=== PATIENT | female | born 1965 | race African-American/Black ===

== ENCOUNTER 2020-07-04 11:26 | Outpatient (REF) | payer OTHER, SELFPAY ==
--- NOTE | ~2020-07-04 | US_ITS ---
EXAMINATION: US RETROPERITONEAL LIMITED (RENAL ONLY) CLINICAL INFORMATION: Calculus of kidney. COMPARISON: Ultrasound abdomen complete 03/17/2018. TECHNIQUE: Real-time imaging of the kidneys. FINDINGS: RIGHT KIDNEY: 12.6 x 4.7 x 5.7 cm (SAG x AP x TRV). The kidney is normal in size, contour, and echogenicity. Renal cortical thickness is normal. No focal parenchymal lesions or hydronephrosis. There is an echogenic stone upper pole measuring 0.4 x 0.2 cm and a midpole stone measuring 0.2 x 0.1 cm. There is no caliectasis. LEFT KIDNEY: 12.5 x 5.3 x 4.6 cm (SAG x AP x TRV). The kidney is normal in size, contour, and echogenicity. Renal cortical thickness is normal. No calculi or focal parenchymal lesions. No hydronephrosis. US/US renal BI IMPRESSION: Nonobstructive echogenic stones upper and midpole right kidney.
== END 2020-07-04 11:27 | disposition home or self-care (01) ==
LOC: HO.US 11:26
PROVIDERS: Visit Provider Urology
DX: N20.0 Calculus of kidney (principal)
CPT/HCPCS: 76775

== ENCOUNTER 2020-07-26 13:24 | Emergency (ER) | payer OTHER, SELFPAY ==
--- NOTE | ~2020-07-26 | CT_ITS ---
EXAMINATION: CT ANGIOGRAM OF THE CHEST WITH AND WITHOUT CONTRAST (CT PULMONARY ANGIOGRAM FOR PE) CLINICAL INFORMATION: Reason for Exam elevated d-dimer. PE? COMPARISON: None TECHNIQUE: Prior to contrast administration, noncontrast localization images were obtained. Subsequently, multidetector volumetric imaging was performed from the thoracic inlet to below the diaphragms following the administration of 71 mL Omnipaque 350 intravenous contrast. No contrast reaction reported Sagittal, coronal, and MIP oblique sagittal reformatted images were obtained on the CT workstation, uploaded to PACS, and reviewed. This CT examination was performed using dose optimization techniques as appropriate, variously including the following: *Automated exposure control *Adjustment of mA and/or kV according to patient size (this includes techniques or standardized protocols for targeted exams where dose is matched to indication/reason for exam; i.e. extremities or head) *Use of iterative reconstruction technique Total exam dose-length product 334 mGy-cm FINDINGS: QUALITY OF STUDY/CONTRAST BOLUS: Satisfactory. PULMONARY ARTERIES: No central or segmental pulmonary emboli. THORACIC AORTA: No aneurysm or dissection. LUNG: No focal consolidation, nodules or masses. Bibasilar atelectasis/groundglass change is present. PLEURA: No pleural effusion or pneumothorax. MEDIASTINUM: Heart size upper limits normal.. No pericardial effusion. No hilar or mediastinal lymphadenopathy. No evidence of septal bowing or right heart strain. CHEST WALL/AXILLA: No axillary or internal mammary lymphadenopathy. OSSEOUS STRUCTURES: No acute or suspicious osseous abnormality. UPPER ABDOMEN: Hepatic steatosis is present. No reflux of contrast into the hepatic veins to suggest elevated right heart pressures. CT/CT angio chest PE protocol IMPRESSION: No evidence of pulmonary emboli. VTE: negative
--- NOTE | ~2020-07-26 | XR_ITS ---
EXAMINATION: XR CHEST CLINICAL INFORMATION: Cough COMPARISON: None TECHNIQUE: Frontal view of the chest was obtained. FINDINGS: Lungs are mildly hypoinflated and there is some minimal bibasilar atelectasis. Thoracolumbar scoliosis is present. No other significant abnormality is noted involving the heart, lungs, mediastinum, bony thorax or soft tissues. XR/XR chest 1V IMPRESSION: No acute intrathoracic disease
[2020-07-26 14:46] VITALS: BP 161/98; PULSE 88; RESP 20; TEMP 36.6; O2SAT 100; BMI 41.6
--- NOTE | 2020-07-26 14:55 | ED_ITS ---
HPI - General Adult General Chief complaint: Upper Respiratory Symptoms <BRISA Weinberg Last Filed: 07/26/20 18:24> Stated complaint: covid symptoms <BRISA Weinberg Last Filed: 07/26/20 18:24> Time Seen by Provider: 07/26/20 13:40 <BRISA Weinberg Last Filed: 07/26/20 18:24> Source: patient <BRISA Weinberg Last Filed: 07/26/20 18:24> Mode of arrival: ambulatory <BRISA Weinberg Last Filed: 07/26/20 18:24> Limitations: no limitations <BRISA Weinberg Last Filed: 07/26/20 18:24> History of Present Illness HPI narrative: Patient presents to ED for coughing, chest pain, body aches, and subjective fever since last night. Patient denies any swelling of the extremities, calf pain, or chest pain on inspiration. Symptoms started since yesterday <BRISA Weinberg Last Filed: 07/26/20 18:24> Related Data Allergies/adverse reactions: Allergies Allergy/AdvReac Type Severity Reaction Status Date / Time Unable to Assess Allergy Verified 07/26/20 13:40 <BRISA Weinberg Last Filed: 07/26/20 18:24> Review of Systems Review of Systems: Yes all other systems are reviewed and are negative <BRISA Weinberg Last Filed: 07/26/20 18:24> Constitutional: Constitutional: Reports as per HPI, Reports no additional constitutional complaints, Reports body ache(s), Reports fatigue and Reports fever(s) <BRISA Weinberg Last Filed: 07/26/20 18:24> Eyes: Eyes: Reports as per HPI and Reports no additional eye complaints <BRISA Weinberg Last Filed: 07/26/20 18:24> ENT: Reports system reviewed and no additional complaints, except as documented and Reports as per HPI <BRISA Weinberg Last Filed: 07/26/20 18:24> Cardiovascular: Cardiovascular: Reports as per HPI, Reports no additional cardiovascular complaints and Reports chest pain <BRISA Weinberg Last Filed: 07/26/20 18:24> Respiratory: Respiratory: Reports as per HPI, Reports no additional respirato ry complaints and Reports cough <BRISA Weinberg - Last Filed: 07/26/20 18:24> Gastrointestinal: Gastrointestinal: Reports as per HPI and Reports no additional gastrointestinal complaints <BRISA Weinberg - Last Filed: 07/26/20 18:24> Genitourinary: Genitourinary: Reports no additional female genitourinary complaints and Reports as per HPI <BRISA Weinberg - Last Filed: 07/26/20 18:24> Musculoskeletal: Musculoskeletal: Reports no additional musculoskeletal complaints and Reports as per HPI <BRISA Weinberg - Last Filed: 07/26/20 18:24> Neurologic: Reports system reviewed and no additional complaints, except as documented and Reports as per HPI <BRISA Weinberg - Last Filed: 07/26/20 18:24> Psychiatric: Psychiatric: Reports no additional psychiatric complaints and Reports as per HPI <BRISA Weinberg - Last Filed: 07/26/20 18:24> Endocrine: Endocrine: Reports fatigue <BRISA Weinberg - Last Filed: 07/26/20 18:24> FORMERLY [facility], [facility] Past Medical History Medical History: Medical History (Updated 07/26/20 @ 18:24 by BRISA Weinberg) Fibromyalgia HTN (hypertension) <BRISA Weinberg - Last Filed: 07/26/20 18:24> Social History Social History: Social History Advance Directives: No Advance Directives Information Provided: No <BRISA Weinberg - Last Filed: 07/26/20 18:24> Physical Exam Vital Signs: Vital Signs: Last Vital Signs Temp 98 F 07/26/20 14:46 Pulse 77 07/26/20 19:11 Resp 16 07/26/20 19:11 BP 157/92 H 07/26/20 19:11 Pulse Ox 98 07/26/20 19:11 Body Mass Index 41.6 <BRISA Weinberg - Last Filed: 07/26/20 18:24> Vital Signs: Last Vital Signs Temp 98 F 07/26/20 14:46 Pulse 77 07/26/20 19:11 Resp 16 07/26/20 19:11 BP 157/92 H 07/26/20 19:11 Pulse Ox 98 07/26/20 19:11 Body Mass Index 41.6 <Liliam Josue [facility] Last Filed: 07/26/20 20:54> Const: General: cooperative, healthy appearing, comfortable, no acute distress, well developed, alert and awake <BRISA Weinberg Last Filed: 07/26/20 18:24> Orientation/consciousness: patient oriented x3 <BRISA Weinberg Last Filed: 07/26/20 18:24> HENMT: Head: Yes normal to inspection, Yes No palpable skull fracture present, Yes normocephalic, Yes atraumatic and No abrasion <BRISA Weinberg Last Filed: 07/26/20 18:24> Eyes: General: appearance normal, both eyes and all related structures <BRISA Weinberg Last Filed: 07/26/20 18:24> Neck: Neck: Yes normal visual inspection, Yes full ROM, Yes no lymphadenopathy, Yes no meningeal signs, Yes trachea midline, Yes supple and No tender <BRISA Weinberg Last Filed: 07/26/20 18:24> Chest: Other: Positive for chest wall tenderness on palpation <BRISA Weinberg Last Filed: 07/26/20 18:24> Chest palpation & inspection: normal inspection of the chest <BRISA Weinberg Last Filed: 07/26/20 18:24> Resp: Effort & Inspection: normal respiratory effort and able to speak in comp lete sentences <BRISA Weinberg Last Filed: 07/26/20 18:24> Auscultation: clear to auscultation bilaterally <BRISA Weinberg Last Filed: 07/26/20 18:24> Cardio: Jugular venous distension: no JVD <BRISA Weinberg Last Filed: 07/26/20 18:24> Heart sounds: S1 normal heart sound present and S2 normal heart sound present <BRISA Weinberg Last Filed: 07/26/20 18:24> GI: Inspection: Yes normal to inspection and No abdominal wall ecchymosis <BRISA Weinberg Last Filed: 07/26/20 18:24> Palpation (GI): Soft to palpation, not firm, nontender, no guarding and not rigid <BRISA Weinberg Last Filed: 07/26/20 18:24> : General: No CVA tenderness and Yes no CVA tenderness <BRISA Weinberg Last Filed: 07/26/20 18:24> Back/Spine/Pelvis: Back: no CVA tenderness, No CVA tenderness and No back tenderness <BRISA Weinberg Last Filed: 07/26/20 18:24> Skin: General skin exam: no rashes or lesions noted and elasticity normal <BRISA Weinberg Last Filed: 07/26/20 18:24> Neuro: General: patient oriented x3, no meningeal signs and CN's II-XI intact bilaterally <BRISA Weinberg Last Filed: 07/26/20 18:24> Cranial nerves: Yes CN's II-XII intact bilaterally <BRISA Weinberg Last Filed: 07/26/20 18:24> Extrem: Other: Lower extremities negative for swelling, pitting edema, or calf pain <BRISA Weinberg Last Filed: 07/26/20 18:24> General: Yes normal to inspection and Yes full ROM <BRISA Weinberg Last Filed: 07/26/20 18:24> Psych: Appearance: grossly normal, well kempt and not disheveled <BRISA Weinberg Last Filed: 07/26/20 18:24> Course Course Course Narrative: Select patient have a viral syndrome with 2 COVID swab and cardiac evaluation. <BRISA Weinberg Last Filed: 07/26/20 18:24> -2052--CT angio chest PE protocol IMPRESSION: No evidence of pulmonary emboli. VTE: negative >> results discussed with patient including worrisome signs and symptoms and strict return precautions. She verbalized understanding feel safe for discharge home to follow-up with PCP <BRISA Gonzales Last Filed: 07/26/20 20:54> Reevaluation(s) Reevaluation #1: Patient's troponin negative. chest xray is normal. COvid swab is negative. lung clear to auscultation. D-dimer elevated and will send for Chest CTA. awating for EKG. Sign out to BRISA Ricketts to follow ekg and CTA of chest. <BRISA Weinberg - Last Filed: 07/26/20 18:24> Medical Decision Making Lab Data Result diagrams: : 07/26/20 16:02 07/26/20 16:02 <BRISA Weinberg - Last Filed: 07/26/20 18:24> Labs: Lab Results 07/26/20 07/26/20 07/26/20 Range/Units 16:02 16:02 16:02 WBC 5.2 (4.8-10.8) X10*3/uL RBC 4.23 (4.20-5.50) X10*6/uL Hgb 12.8 (12.0-16.0) g/dl Hct 39.0 (37-47) % MCV 92.2 (80-98) fL MCH 30.3 (27.0-33.0) pg MCHC 32.8 (31.0-35.0) g/dl RDW 12.6 (11.0-16.0) % Plt Count 365 (160-400) X10*3/uL MPV 10.0 (9.4-12.3) fL Immature Gran % (Auto) 0.2 (0.0-0.4) % Neut % (Auto) 39.2 L (45-73) % Lymph % (Auto) 49.4 H (20-40) % [place] % (Auto) 8.3 (2-11) % Eos % (Auto) 1.7 (0-4) % Baso % (Auto) 1.2 (0-2) % Lymph # (Auto) 2.6 (1.2-4.9) X10*3/uL [place] # (Auto) 0.4 (0.1-1.2) X10*3/uL Eos # (Auto) 0.1 (0.0-0.4) X10*3/uL Baso # (Auto) 0.1 (0.0-0.2) X10*3/uL Abs Immat Gran (auto) 0.01 (0.00-0.03) X10*3/uL Absolute Neuts (auto) 2.0 (2.0-8.3) X10*3/uL Absolute Nucleated RBC 0.000 (0.0-0.012) X10*3/uL Nucleated RBC % (auto) 0.0 (0.0-0.2) /100WBC PT 12.1 (10.8-13.0) SEC INR 1.0 (0.9-1.1) APTT 35.6 (24.1-38.0) SEC D-Dimer 231 NG/ML Sodium (135-145) mmol/L Potassium (3.3-5.1) mmol/L Chloride (96-108) mmol/L Carbon Dioxide (22-29) mmol/L Anion Gap (12-20) BUN (9-16) mg/dL Creatinine (0.5-1.4) mg/dL Estim Creat Clear Calc Estimated GFR Random Glucose (60-115) mg/dL Calcium (8.4-10.2) mg/dL Ferritin (10-250) ng/mL Total Bilirubin (0.0-1.0) mg/dL AST (5-31) U/L ALT (0-31) U/L Alkaline Phosphatase (39-117) U/L Lactate Dehydrogenase (122-220) U/L Troponin I High Sens (<3.5-17.0) ng/L B-Natriuretic Peptide (<100) pg/mL Total Protein (6.5-8.0) g/dL Albumin (3.5-5.0) g/dL Procalcitonin ng/mL Beta HCG, Quant mIU/mL Coronavirus (PCR) NEGATIVE (Negative) Influenza Type A (PCR) NEGATIVE (Negative) Influenza Type B (PCR) NEGATIVE (Negative) RSV RNA Qual (PCR) NEGATIVE (Negative) 07/26/20 07/26/20 07/26/20 Range/Units 16:02 16:02 16:02 WBC (4.8-10.8) X10*3/uL RBC (4.20-5.50) X10*6/uL Hgb (12.0-16.0) g/dl Hct (37-47) % MCV (80-98) fL MCH (27.0-33.0) pg MCHC (31.0-35.0) g/dl RDW (11.0-16.0) % Plt Count (160-400) X10*3/uL MPV (9.4-12.3) fL Immature Gran % (Auto) (0.0-0.4) % Neut % (Auto) (45-73) % Lymph % (Auto) (20-40) % [place] % (Auto) (2-11) % Eos % (Auto) (0-4) % Baso % (Auto) (0-2) % Lymph # (Auto) (1.2-4.9) X10*3/uL [place] # (Auto) (0.1-1.2) X10*3/uL Eos # (Auto) (0.0-0.4) X10*3/uL Baso # (Auto) (0.0-0.2) X10*3/uL Abs Immat Gran (auto) (0.00-0.03) X10*3/uL Absolute Neuts (auto) (2.0-8.3) X10*3/uL Absolute Nucleated RBC (0.0-0.012) X10*3/uL Nucleated RBC % (auto) (0.0-0.2) /100WBC PT (10.8-13.0) SEC INR (0.9-1.1) APTT (24.1-38.0) SEC D-Dimer NG/ML Sodium 137 (135-145) mmol/L Potassium 4.2 (3.3-5.1) mmol/L Chloride 100 (96-108) mmol/L Carbon Dioxide 28 (22-29) mmol/L Anion Gap 13 (12-20) BUN 12 (9-16) mg/dL Creatinine 0.80 (0.5-1.4) mg/dL Estim Creat Clear Calc 105.7 Estimated GFR > 60 Random Glucose 99 (60-115) mg/dL Calcium 9.9 (8.4-10.2) mg/dL Ferritin 76 (10-250) ng/mL Total Bilirubin 0.5 (0.0-1.0) mg/dL AST 25 (5-31) U/L ALT 25 (0-31) U/L Alkaline Phosphatase 73 (39-117) U/L Lactate Dehydrogenase 299 H (122-220) U/L Troponin I High Sens 4.2 (<3.5-17.0) ng/L B-Natriuretic Peptide 89 (<100) pg/mL Total Protein 7.9 (6.5-8.0) g/dL Albumin 4.3 (3.5-5.0) g/dL Procalcitonin ng/mL Beta HCG, Quant < 2 mIU/mL Coronavirus (PCR) (Negative) Influenza Type A (PCR) (Negative) Influenza Type B (PCR) (Negative) RSV RNA Qual (PCR) (Negative) 07/26/20 Range/Units 16:02 WBC (4.8-10.8) X10*3/uL RBC (4.20-5.50) X10*6/uL Hgb (12.0-16.0) g/dl Hct (37-47) % MCV (80-98) fL MCH (27.0-33.0) pg MCHC (31.0-35.0) g/dl RDW (11.0-16.0) % Plt Count (160-400) X10*3/uL MPV (9.4-12.3) fL Immature Gran % (Auto) (0.0-0.4) % Neut % (Auto) (45-73) % Lymph % (Auto) (20-40) % [place] % (Auto) (2-11) % Eos % (Auto) (0-4) % Baso % (Auto) (0-2) % Lymph # (Auto) (1.2-4.9) X10*3/uL [place] # (Auto) (0.1-1.2) X10*3/uL Eos # (Auto) (0.0-0.4) X10*3/uL Baso # (Auto) (0.0-0.2) X10*3/uL Abs Immat Gran (auto) (0.00-0.03) X10*3/uL Absolute Neuts (auto) (2.0-8.3) X10*3/uL Absolute Nucleated RBC (0.0-0.012) X10*3/uL Nucleated RBC % (auto) (0.0-0.2) /100WBC PT (10.8-13.0) SEC INR (0.9-1.1) APTT (24.1-38.0) SEC D-Dimer NG/ML Sodium (135-145) mmol/L Potassium (3.3-5.1) mmol/L Chloride (96-108) mmol/L Carbon Dioxide (22-29) mmol/L Anion Gap (12-20) BUN (9-16) mg/dL Creatinine (0.5-1.4) mg/dL Estim Creat Clear Calc Estimated GFR Random Glucose (60-115) mg/dL Calcium (8.4-10.2) mg/dL Ferritin (10-250) ng/mL Total Bilirubin (0.0-1.0) mg/dL AST (5-31) U/L ALT (0-31) U/L Alkaline Phosphatase (39-117) U/L Lactate Dehydrogenase (122-220) U/L Troponin I High Sens (<3.5-17.0) ng/L B-Natriuretic Peptide (<100) pg/mL Total Protein (6.5-8.0) g/dL Albumin (3.5-5.0) g/dL Procalcitonin 0.02 ng/mL Beta HCG, Quant mIU/mL Coronavirus (PCR) (Negative) Influenza Type A (PCR) (Negative) Influenza Type B (PCR) (Negative) RSV RNA Qual (PCR) (Negative) <BRISA Weinberg - Last Filed: 07/26/20 18:24> Lab Results 07/26/20 07/26/20 07/26/20 Range/Units 16:02 16:02 16:02 WBC 5.2 (4.8-10.8) X10*3/uL RBC 4.23 (4.20-5.50) X10*6/uL Hgb 12.8 (12.0-16.0) g/dl Hct 39.0 (37-47) % MCV 92.2 (80-98) fL MCH 30.3 (27.0-33.0) pg MCHC 32.8 (31.0-35.0) g/dl RDW 12.6 (11.0-16.0) % Plt Count 365 (160-400) X10*3/uL MPV 10.0 (9.4-12.3) fL Immature Gran % (Auto) 0.2 (0.0-0.4) % Neut % (Auto) 39.2 L (45-73) % Lymph % (Auto) 49.4 H (20-40) % [place] % (Auto) 8.3 (2-11) % Eos % (Auto) 1.7 (0-4) % Baso % (Auto) 1.2 (0-2) % Lymph # (Auto) 2.6 (1.2-4.9) X10*3/uL [place] # (Auto) 0.4 (0.1-1.2) X10*3/uL Eos # (Auto) 0.1 (0.0-0.4) X10*3/uL Baso # (Auto) 0.1 (0.0-0.2) X10*3/uL Abs Immat Gran (auto) 0.01 (0.00-0.03) X10*3/uL Absolute Neuts (auto) 2.0 (2.0-8.3) X10*3/uL Absolute Nucleated RBC 0.000 (0.0-0.012) X10*3/uL Nucleated RBC % (auto) 0.0 (0.0-0.2) /100WBC PT 12.1 (10.8-13.0) SEC INR 1.0 (0.9-1.1) APTT 35.6 (24.1-38.0) SEC D-Dimer 231 NG/ML Sodium (135-145) mmol/L Potassium (3.3-5.1) mmol/L Chloride (96-108) mmol/L Carbon Dioxide (22-29) mmol/L Anion Gap (12-20) BUN (9-16) mg/dL Creatinine (0.5-1.4) mg/dL Estim Creat Clear Calc Estimated GFR Random Glucose (60-115) mg/dL Calcium (8.4-10.2) mg/dL Ferritin (10-250) ng/mL Total Bilirubin (0.0-1.0) mg/dL AST (5-31) U/L ALT (0-31) U/L Alkaline Phosphatase (39-117) U/L Lactate Dehydrogenase (122-220) U/L Troponin I High Sens (<3.5-17.0) ng/L B-Natriuretic Peptide (<100) pg/mL Total Protein (6.5-8.0) g/dL Albumin (3.5-5.0) g/dL Procalcitonin ng/mL Beta HCG, Quant mIU/mL Coronavirus (PCR) NEGATIVE (Negative) Influenza Type A (PCR) NEGATIVE (Negative) Influenza Type B (PCR) NEGATIVE (Negative) RSV RNA Qual (PCR) NEGATIVE (Negative) 07/26/20 07/26/20 07/26/20 Range/Units 16:02 16:02 16:02 WBC (4.8-10.8) X10*3/uL RBC (4.20-5.50) X10*6/uL Hgb (12.0-16.0) g/dl Hct (37-47) % MCV (80-98) fL MCH (27.0-33.0) pg MCHC (31.0-35.0) g/dl RDW (11.0-16.0) % Plt Count (160-400) X10*3/uL MPV (9.4-12.3) fL Immature Gran % (Auto) (0.0-0.4) % Neut % (Auto) (45-73) % Lymph % (Auto) (20-40) % [place] % (Auto) (2-11) % Eos % (Auto) (0-4) % Baso % (Auto) (0-2) % Lymph # (Auto) (1.2-4.9) X10*3/uL [place] # (Auto) (0.1-1.2) X10*3/uL Eos # (Auto) (0.0-0.4) X10*3/uL Baso # (Auto) (0.0-0.2) X10*3/uL Abs Immat Gran (auto) (0.00-0.03) X10*3/uL Absolute Neuts (auto) (2.0-8.3) X10*3/uL Absolute Nucleated RBC (0.0-0.012) X10*3/uL Nucleated RBC % (auto) (0.0-0.2) /100WBC PT (10.8-13.0) SEC INR (0.9-1.1) APTT (24.1-38.0) SEC D-Dimer NG/ML Sodium 137 (135-145) mmol/L Potassium 4.2 (3.3-5.1) mmol/L Chloride 100 (96-108) mmol/L Carbon Dioxide 28 (22-29) mmol/L Anion Gap 13 (12-20) BUN 12 (9-16) mg/dL Creatinine 0.80 (0.5-1.4) mg/dL Estim Creat Clear Calc 105.7 Estimated GFR > 60 Random Glucose 99 (60-115) mg/dL Calcium 9.9 (8.4-10.2) mg/dL Ferritin 76 (10-250) ng/mL Total Bilirubin 0.5 (0.0-1.0) mg/dL AST 25 (5-31) U/L ALT 25 (0-31) U/L Alkaline Phosphatase 73 (39-117) U/L Lactate Dehydrogenase 299 H (122-220) U/L Troponin I High Sens 4.2 (<3.5-17.0) ng/L B-Natriuretic Peptide 89 (<100) pg/mL Total Protein 7.9 (6.5-8.0) g/dL Albumin 4.3 (3.5-5.0) g/dL Procalcitonin ng/mL Beta HCG, Quant < 2 mIU/mL Coronavirus (PCR) (Negative) Influenza Type A (PCR) (Negative) Influenza Type B (PCR) (Negative) RSV RNA Qual (PCR) (Negative) 07/26/20 Range/Units 16:02 WBC (4.8-10.8) X10*3/uL RBC (4.20-5.50) X10*6/uL Hgb (12.0-16.0) g/dl Hct (37-47) % MCV (80-98) fL MCH (27.0-33.0) pg MCHC (31.0-35.0) g/dl RDW (11.0-16.0) % Plt Count (160-400) X10*3/uL MPV (9.4-12.3) fL Immature Gran % (Auto) (0.0-0.4) % Neut % (Auto) (45-73) % Lymph % (Auto) (20-40) % [place] % (Auto) (2-11) % Eos % (Auto) (0-4) % Baso % (Auto) (0-2) % Lymph # (Auto) (1.2-4.9) X10*3/uL [place] # (Auto) (0.1-1.2) X10*3/uL Eos # (Auto) (0.0-0.4) X10*3/uL Baso # (Auto) (0.0-0.2) X10*3/uL Abs Immat Gran (auto) (0.00-0.03) X10*3/uL Absolute Neuts (auto) (2.0-8.3) X10*3/uL Absolute Nucleated RBC (0.0-0.012) X10*3/uL Nucleated RBC % (auto) (0.0-0.2) /100WBC PT (10.8-13.0) SEC INR (0.9-1.1) APTT (24.1-38.0) SEC D-Dimer NG/ML Sodium (135-145) mmol/L Potassium (3.3-5.1) mmol/L Chloride (96-108) mmol/L Carbon Dioxide (22-29) mmol/L Anion Gap (12-20) BUN (9-16) mg/dL Creatinine (0.5-1.4) mg/dL Estim Creat Clear Calc Estimated GFR Random Glucose (60-115) mg/dL Calcium (8.4-10.2) mg/dL Ferritin (10-250) ng/mL Total Bilirubin (0.0-1.0) mg/dL AST (5-31) U/L ALT (0-31) U/L Alkaline Phosphatase (39-117) U/L Lactate Dehydrogenase (122-220) U/L Troponin I High Sens (<3.5-17.0) ng/L B-Natriuretic Peptide (<100) pg/mL Total Protein (6.5-8.0) g/dL Albumin (3.5-5.0) g/dL Procalcitonin 0.02 ng/mL Beta HCG, Quant mIU/mL Coronavirus (PCR) (Negative) Influenza Type A (PCR) (Negative) Influenza Type B (PCR) (Negative) RSV RNA Qual (PCR) (Negative) <BRISA Gonzales - Last Filed: 07/26/20 20:54> Discharge Plan Discharge Clinical Impression: Acute viral syndrome <BRISA Weinberg - Last Filed: 07/26/20 18:24> Patient Disposition: Home, Self-Care <BRISA Weinberg - Last Filed: 07/26/20 18:24> Instructions: Viral Syndrome (ED) <BRISA Weinberg - Last Filed: 07/26/20 18:24> Additional Instructions: Your blood work and imaging studies were reassuring today in the emergency department It is important that he follow up with her primary care doctor Continue to take Tylenol Motrin at home for pain If her symptoms persist or worsen please return to the ED <BRISA Weinberg - Last Filed: 07/26/20 18:24> Referrals: Ami Castro MD [Primary Care Provider] - 2 days <BRISA Weinberg - Last Filed: 07/26/20 18:24>
[2020-07-26] MEDS: Ketorolac Tromethamine 30 MG/ML VIAL IVPUSH (16:07)
[2020-07-26 16:09] LABS: MANUAL DIFF FLAG NO
[2020-07-26 16:10] LABS: Basophils Absolute Auto 0.1 X10*3/uL (0.0-0.2); Basophils Percent Auto 1.2 % (0-2); Eosinophils Absolute Auto 0.1 X10*3/uL (0.0-0.4); Eosinophils Percent Auto 1.7 % (0-4); Hemoglobin 12.8 g/dl (12.0-16.0); Imm Gran Abs Auto 0.01 X10*3/uL (0.00-0.03); Imm Gran Pct Auto 0.2 % (0.0-0.4); Lymphocytes Absolute Auto 2.6 X10*3/uL (1.2-4.9); Lymphocytes Percent Auto 49.4 % (20-40); Mean Corpuscular HGB Conc 32.8 g/dl (31.0-35.0); Mean Corpuscular Hemoglobin 30.3 pg (27.0-33.0); Mean Corpuscular Volume 92.2 fL (80-98); Monocytes Absolute Auto 0.4 X10*3/uL (0.1-1.2); Monocytes Percent Auto 8.3 % (2-11); Neutrophils Percent Auto 39.2 % (45-73); Platelet Count 365 X10*3/uL (160-400); Red Blood Count 4.23 X10*6/uL (4.20-5.50); Red Cell Distribution Width 12.6 % (11.0-16.0); White Blood Count 5.2 X10*3/uL (4.8-10.8)
[2020-07-26] MEDS: 0.9 % Sodium Chloride 1,000 ML 999 ML IV (16:11)
[2020-07-26 16:17] LABS: Prothrombin Time 12.1 SEC (10.8-13.0)
[2020-07-26 16:19] LABS: Partial Thromboplastin Time 35.6 SEC (24.1-38.0)
--- NOTE | 2020-07-26 16:19 | PC.NURSE ---
IV placed and labs obtained. Pt medicated with Toradol and IVF.
[2020-07-26 16:35] LABS: Alanine Aminotransferase 25 U/L (0-31); Albumin Level 4.3 g/dL (3.5-5.0); Alkaline Phosphatase 73 U/L (39-117); Anion Gap 13 (12-20); Aspartate Amino Transferase 25 U/L (5-31); Bilirubin Total 0.5 mg/dL (0.0-1.0); Blood Urea Nitrogen 12 mg/dL (9-16); Calcium 9.9 mg/dL (8.4-10.2); Carbon Dioxide 28 mmol/L (22-29); Chloride 100 mmol/L (96-108); Creatinine Clr Calc Pharmacy 105.7; Estimated Glomerular Filt Rate > 60; Glucose Random 99 mg/dL (60-115); Potassium 4.2 mmol/L (3.3-5.1); Sodium 137 mmol/L (135-145); Total Protein 7.9 g/dL (6.5-8.0)
[2020-07-26 16:36] LABS: Lactate Dehydrogenase 299 U/L (122-220)
[2020-07-26 16:40] LABS: B Type Natriuretic Peptide 89 pg/mL (<100); Troponin-I High Sensitivity 4.2 ng/L (<3.5-17.0)
[2020-07-26 16:42] LABS: HCG Quantitative < 2 mIU/mL
[2020-07-26 16:55] LABS: Ferritin 76 ng/mL (10-250); Procalcitonin 0.02 ng/mL
[2020-07-26 16:59] LABS: D Dimer 231 NG/ML
[2020-07-26 17:29] LABS: Influenza A PCR NEGATIVE (Negative); Influenza B PCR NEGATIVE (Negative); Resp Syncy Virus RNA Qual PCR NEGATIVE (Negative); SARS COV2 PCR INHOUSE NEGATIVE (Negative)
--- NOTE | 2020-07-26 18:13 | ECG_ITS ---
Test Reason : DYSPNEA Blood Pressure : / mmHG Vent. Rate : 078 BPM Atrial Rate : 078 BPM P-R Int : 158 ms QRS Dur : 074 ms QT Int : 402 ms P-R-T Axes : 051 020 030 degrees QTc Int : 458 ms Sinus rhythm with occasional Premature ventricular complexes Cannot rule out Anterior infarct , age undetermined Abnormal ECG No previous ECGs available Referred By: Claudio Stanley Electronically Signed By:CHRISTA GUERRA MD
--- NOTE | 2020-07-26 19:10 | PC.NURSE ---
Report taken from Shayna, this RN resuming care. sonography technician at bedside obtaining EKG. VSS.
[2020-07-26 19:11] VITALS: BP 157/92; PULSE 77; RESP 16; O2SAT 98
--- NOTE | 2020-07-26 19:35 | PC.NURSE ---
Off to CT on hospital bed.
[2020-07-26] MEDS: iohexoL 350 MG/ML 100 ML INFUS..BTL IV (19:54)
[2020-07-26] MEDS: Acetaminophen 325 MG TABLET 650 MG PO (20:39)
--- NOTE | 2020-07-26 20:40 | PC.NURSE ---
Medicated per MAR with Tylenol.
[2020-07-26 20:55] VITALS: BP 172/100; PULSE 75; RESP 18; TEMP 36.6; O2SAT 95
[2020-07-26 21:20] VITALS: BP 170/90
== END 2020-07-26 21:22 | disposition home or self-care (01) ==
PROVIDERS: Emergency Medicine; Physician Assistant; Emergency Provider Emergency Medicine Emergency Medical Services; PCP Internal Medicine
DX: B34.9 Viral infection, unspecified (principal); Z20.822 Contact with and (suspected) exposure to COVID-19; R05 Cough
CPT/HCPCS: 0241U; 36415; 71045; 71275; 80053; 82728; 83615; 83880; 84145; 84484; 84702; 85025; 85379; 85610; 85730; 93005; 96361; 96374; 99284; J1885; Q9967

== ENCOUNTER 2022-04-02 10:12 | Outpatient (REF) | payer OTHER, SELFPAY ==
--- NOTE | ~2022-04-02 | XR_ITS ---
EXAMINATION: XR ANKLE, RIGHT CLINICAL INFORMATION: Pain. COMPARISON: None TECHNIQUE: AP, lateral, and mortise views of the right ankle. FINDINGS: Bony alignment and mineralization are normal. The right ankle mortise is intact. No fracture, dislocation or right ankle joint effusion is seen. There is a minimal accessory ossification center distal to the medial malleolus. Boehler's angle is normal. There is a moderately large posterior calcaneal spur. No focal soft tissue swelling, gas or foreign body is seen. XR/XR ankle RT min 3V IMPRESSION: 1. No right ankle fracture, dislocation or joint effusion is seen. 2. There is a moderately large posterior right calcaneal spur.
== END 2022-04-02 10:13 | disposition home or self-care (01) ==
LOC: HO.XRAY 10:12
PROVIDERS: PCP Internal Medicine; Visit Provider Internal Medicine Rheumatology
DX: M47.816 Spondylosis without myelopathy or radiculopathy, lumbar region (principal); M47.812 Spondylosis without myelopathy or radiculopathy, cervical region; M17.0 Bilateral primary osteoarthritis of knee; M79.7 Fibromyalgia; M25.571 Pain in right ankle and joints of right foot; M76.61 Achilles tendinitis, right leg; M19.90 Unspecified osteoarthritis, unspecified site; Z79.899 Other long term (current) drug therapy
CPT/HCPCS: 73610; 99212

== ENCOUNTER 2022-11-06 11:37 | Outpatient (AMB) | payer OTHER, SELFPAY ==
--- NOTE | 2022-11-06 11:41 | MHC.OFFVIS ---
Intake Vital Signs 11/06/22 11:43 Height 5 ft 6 in Weight 194 lb 3.636 oz BMI 31.3 BP 124/84 Blood Pressure Location Rt brachial Position Sitting Pulse 81 Pulse Source Pulse Oximeter Temp 97.7 F Temp Source Skin Pulse Oximetry (%) 98 Intake Visit Reasons: Fibromyalgia Intake Note: Here for fibromyalgia. Would like new referral for PT. Would like external orders to [facility] in [place]. ([facility]?) Bottom Sprayer Required: Yes Bottom Sprayer Language: Bariatric Program Coordinator Name: Laquita [email or web address] Information Interpreted: clinical only Accompanied by: Self / Same As Patient Allergies gabapentin Allergy (Intermediate, Verified 11/06/22 11:43) Swelling HPI HPI Comments History of Present Illness Details The patient returns for evaluation of her fibromyalgia and osteoarthritis. She was last seen in March. I tried to refer her for physical therapy for her Achilles tendinitis. She was unable to find transportation and now the order has . She now thinks she can make it to the [facility] Physical therapy site on [facility] in [place]. The pain is still in the Achilles more on the right than the left. She also complains of some knee pain particularly with getting up from stairs. Other muscle aches and pains remain about the same. She ran out of the cyclobenzaprine and could not get a refill. She was taking 10 to 20 mg nightly and that did improve her sleep. She remains on duloxetine 90 mg daily. She also had available to her some diclofenac gel that was helpful for her knee pain but did not seem to help much the Achilles pain. [facility] Medical History (Updated 04/02/22 @ 10:42 by Roger Peres MD) ADHD Anxiety DDD (degenerative disc disease), cervical Diabetes Esophageal dysmotility Fibromyalgia Gastritis HTN (hypertension) Hypercholesteremia Migraine Obesity Spondylosis Vertigo Vitamin D deficiency Surgical History H/O bariatric surgery Family History Mother Arthritis Father Arthritis Diabetes Social History (Updated 11/06/22 @ 11:50 by TROY Currie) Alcohol intake: former Patient Tobacco Use Status: Former Tobacco user Review of Systems Const Details: Low energy. Negative for appetite change, weight change, fever, chills, malaise Card Details: Negative chest pain, edema and syncope Resp Details: Negative for SOB, cough and wheezing GI Details: Negative indigestion/heartburn, nausea, abdominal pain, bowel changes, diarrhea, constipation and bloody stool. Psych Details: Negative for anxiety, depression and stress Magnus/Lymph Details: Negative for excessive bruising or bleeding. Physical Exam Vital Signs: Last Vital Signs Temp 97.7 F 11/06/22 11:43 Pulse 81 11/06/22 11:43 BP 124/84 11/06/22 11:43 Pulse Ox 98 11/06/22 11:43 BMI result Body Mass Index 31.3 APPEARANCE: Patient in no acute distress EYES no redness, pupils equal and reactive to light, eyelids normal. No temporal artery tenderness, redness or swelling. EXTREMITIES: No edema, no calf tenderness, normal peripheral pulses. JOINT EXAM: Cervical Spine:.? Mild pain with extremes of normal range of motion.? Mild cervical muscle tenderness. Thoracic Spine:.? No scoliosis.? No tenderness on palpation. Lumbar Spine:.? Alignment normal.? Lumbar pain with flexion at 45 degrees with some paraspinal muscle tenderness. Chest Wall:.? No tenderness, swelling, increased warmth or erythema. Hands:.? Normal pain-free range of motion without tenderness, swelling, increased warmth or erythema. Able to make a full fist and has a good shrink pit supervisor strength. Wrists:.? Normal pain-free range of motion with slight dorsal tenderness but no swelling, increased warmth or erythema. Elbows:. Normal pain-free range of motion without tenderness, swelling, increased warmth or erythema. Shoulders:.?? Full range of motion with pain at the extremes of range of motion.? Most of this is in the trapezial and axillary regions.? There is slight anterior tenderness without abductor weakness or adenopathy. Hips:? Full range of motion with lumbar pains at the extremes of range of motion, more painful with range of motion in the right hip.? No groin pain with motion. Hip bursa:? No tenderness. Knees: Normal pain-free range of motion with mild patellofemoral crepitus.? There is slight medial compartment tenderness without effusion, soft tissue swelling, increased warmth or erythema.? Ankles:? Right:? There is pain over the Achilles with extremes of normal flexion extension.? There is mild tenderness along the Achilles tendon without redness or swelling.? Inversion and eversion the ankle is normal without any tenderness over the joint margins.? Left:? Normal pain-free range of motion with slight tenderness. No swelling, increased warmth or erythema. Feet:.? Normal pain-free range of motion without tenderness, swelling, increased warmth or erythema. Tender points:? Mild tenderness to digital palpation at the occiput, trapezius, second rib, lateral epicondyle, knees, greater trochanter and gluteal area bilaterally. ? Results Reviewed Results Reviewed: XRay Report Signed Patient: Tia Ivy [id number] : 1965 Acct:[id number] Age/Sex: 56 / F ADM Date: 04/02/[address]: Roger Peres MD Ordering Physician: Roger Peres MD Date of Service: 04/02/22 Procedure(s): XR ankle RT min 3V Accession Number(s): [id number] cc: Roger Peres MD~ EXAMINATION: XR ANKLE, RIGHT CLINICAL INFORMATION: Pain.? COMPARISON: None? TECHNIQUE: AP, lateral, and mortise views of the right ankle. FINDINGS: Bony alignment and mineralization are normal. The right ankle mortise is intact. No fracture, dislocation or right ankle joint effusion is seen. There is a minimal accessory ossification center distal to the medial malleolus. Boehler's angle is normal. There is a moderately large posterior calcaneal spur. No focal soft tissue swelling, gas or foreign body is seen.? XR/XR ankle RT min 3V IMPRESSION: ? 1. No right ankle fracture, dislocation or joint effusion is seen. ? 2. There is a moderately large posterior right calcaneal spur. Dictated By: Will Sawyer MD Assessment & Plan Assessment & Plan (1) Achilles tendinitis, right leg: Code(s): M76.61 - Achilles tendinitis, right leg (2) Osteoarthritis of knees, bilateral: Code(s): M17.0 - Bilateral primary osteoarthritis of knee (3) Fibromyalgia: Code(s): M79.7 - Fibromyalgia Plan The overall pains of fibromyalgia are about the same. She still is more bothered by this right Achilles pain. Now the left is slightly tender as well. I do not really see any signs of active inflammatory disease. I will try again to refer her to the [facility] location for physical therapy. I will also add for some exercises for osteoarthritis in the knees. I think she mostly has patellofemoral OA. She was given the refill for the cyclobenzaprine 10 mg to take 1 or 2 at night. She never takes it during the day because it makes her too sleepy. A follow-up in 6 months would be reasonable. Orders: Orders PT Evaluation and Treatment Today M17.0 - Bilateral primary osteoarthritis of knee, M76.61 - Achilles tendinitis, right leg Medications: Changed From cyclobenzaprine 10 mg PO TID To cyclobenzaprine 10 - 20 mg (1 - 2 x 10 mg) PO BEDTIME PRN 60 tabs 3RF muscle spasm Refilled diclofenac sodium 1% 2 grams topical BID 100 grams 4RF M17.0 - Bilateral primary osteoarthritis of knee, M76.61 - Achilles tendinitis, right leg Coding Level of Care Code Est Pt Level 3 (85344) Diagnoses Achilles tendinitis, right leg M76.61 Osteoarthritis of knees, bilateral M17.0 Fibromyalgia M79.7
[2022-11-06 11:43] VITALS: BP 124/84; PULSE 81; TEMP 36.5; O2SAT 98; BMI 31.3
== END 2022-11-06 14:45 | disposition home or self-care (01) ==
PROVIDERS: PCP Internal Medicine; Visit Provider Internal Medicine Rheumatology
DX: M76.61 Achilles tendinitis, right leg (principal); M17.0 Bilateral primary osteoarthritis of knee; M79.7 Fibromyalgia
CPT/HCPCS: 99213

== ENCOUNTER → 2022-11-06 11:37 | Outpatient (BNVA) | payer OTHER, SELFPAY | PROVIDERS: PCP Internal Medicine; Visit Provider Internal Medicine Rheumatology | DX: M17.0 Bilateral primary osteoarthritis of knee (principal); M79.7 Fibromyalgia; M76.61 Achilles tendinitis, right leg | CPT/HCPCS: 99212 ==

== ENCOUNTER 2023-06-24 09:26 | Outpatient (AMB) | payer OTHER, SELFPAY ==
--- NOTE | 2023-06-24 09:34 | MHC.OFFVIS ---
Intake Vital Signs 06/24/23 09:42 Height 5 ft 6 in Weight 200 lb 6.403 oz BMI 32.3 BP 110/70 Blood Pressure Location Rt brachial Position Sitting Pulse 82 Pulse Source Pulse Oximeter Pulse Oximetry (%) 100 Oxygen Delivery Method Room Air Intake Visit Reasons: oa Intake Note: Patient last seen 11/06/[address] Peres, presents today for follow up.\ Reports not taking Duloxetine. Needs new psychiatrist. Fire Management Officer Required: Yes Fire Management Officer Language: Instrument Technician Apprentice Name: Margarita [id number] Information Interpreted: clinical only Accompanied by: Self / Same As Patient Allergies gabapentin Allergy (Intermediate, Verified 06/24/23 09:35) Swelling HPI HPI Comments History of Present Illness Details Ms. Weber 57 yoF returns for follow-up of her fibromyalgia and osteoarthritis. She was last seen in October 2022. She was not able to go to physical therapy for her Achilles tendinitis. She was unable to find transportation. The pain is still in the Achilles more on the right than the left. She also complains of some knee pain particularly with stairs. Other muscle aches and pains remain about the same. She is not taking duloxetine 90 mg daily. She also uses diclofenac gel which she finds helpful for her knee pain but does not help with the Achilles pain. Today she reports frequent headaches and tenderness to the side of her head where there is a lump which has been there for a very long time but recently has starting to feel tender when she has a headache. She denies visual changes and jaw claudication. 04/02/[address] Peres: The patient is seen for evaluation of her fibromyalgia and osteoarthritis. I had last seen her back in September of 2020 at [place]. She says overall the joint pains continue most prominent in the lower back, neck and shoulders. She also has knee pain with walking and more recently has developed some pain in the right Achilles region. No injury in that area was noted. She has not seen any swelling or redness. She is no longer taking any NSAIDs, they seem to cause GI upset, even Celebrex given in conjunction with pantoprazole. She does take acetaminophen 2 or 3 g a day with some benefit. She remains on Cymbalta, nighttime trazodone, and occasional cyclobenzaprine. [facility] Medical History (Updated 04/10/24 @ 09:56 by Zoila Hernandez, [facility]) Lump of scalp Frequent headaches Gastritis Vertigo Vitamin D deficiency Hypercholesteremia DDD (degenerative disc disease), cervical Obesity Spondylosis Esophageal dysmotility Anxiety ADHD Migraine Diabetes Fibromyalgia HTN (hypertension) Surgical History H/O bariatric surgery Family History Mother Arthritis Father Arthritis Diabetes Social History Alcohol intake: former Patient Tobacco Use Status: Former Tobacco user Review of Systems Const All systems reviewed & are unremarkable except as noted in HPI and below Physical Exam Vital Signs: Last Vital Signs Pulse 82 06/24/23 09:42 BP 110/70 06/24/23 09:42 Pulse Ox 100 06/24/23 09:42 Oxygen Delivery Method Room Air 06/24/23 09:42 BMI result Body Mass Index 32.3 APPEARANCE: Patient in no acute distress EYES no redness, pupils equal and reactive to light, eyelids normal. No temporal artery tenderness, redness or swelling. HEART:? Regular rhythm, S1-S2 heard, no murmurs, rubs or gallops. LUNG:? Clear to percussion and auscultation SKIN: Lump to Posterior left side of cranial, approximately 1 in diameter, mild tender but no redness erythema or increased warmth. There is no oozing or opening. EXTREMITIES: No edema, no calf tenderness, normal peripheral pulses. JOINT EXAM: Cervical Spine:.? Mild pain with extremes of normal range of motion.? Mild cervical muscle tenderness. Thoracic Spine:.? No scoliosis.? No tenderness on palpation. Lumbar Spine:.? Alignment normal.? Lumbar pain with flexion at 45 degrees with some paraspinal muscle tenderness. Chest Wall:.? No tenderness, swelling, increased warmth or erythema. Hands:.? Normal pain-free range of motion without tenderness, swelling, increased warmth or erythema. Able to make a full fist and has a good septic cleaner strength. Wrists:.? Normal pain-free range of motion with slight dorsal tenderness but no swelling, increased warmth or erythema. Elbows:. Normal pain-free range of motion without tenderness, swelling, increased warmth or erythema. Shoulders:.?? Full range of motion with pain at the extremes of range of motion.? Most of this is in the trapezial and axillary regions.? There is anterior tenderness without abductor weakness or adenopathy. Hips:? Full range of motion with lumbar pains at the extremes of range of motion, more painful with range of motion in the right hip.? No groin pain with motion. Hip bursa:? No tenderness. Knees: Normal pain-free range of motion with mild patellofemoral crepitus.? There is mild medial compartment tenderness without effusion, soft tissue swelling, increased warmth or erythema.? Ankles:? Right:? There is pain over the Achilles with extremes of normal flexion extension.? There is tenderness along the Achilles tendon without redness or swelling.? Inversion and eversion the ankle is normal without any tenderness over the joint margins.? Left:? Normal pain-free range of motion with slight tenderness. No swelling, increased warmth or erythema. Feet:.? Normal pain-free range of motion without tenderness, swelling, increased warmth or erythema. Tender points:? Mild tenderness to digital palpation at the occiput, trapezius, second rib, lateral epicondyle, knees, greater trochanter and gluteal area bilaterally. ? Assessment & Plan Assessment & Plan (1) Achilles tendinitis, right leg: Code(s): M76.61 - Achilles tendinitis, right leg (2) Osteoarthritis of knees, bilateral: Code(s): M17.0 - Bilateral primary osteoarthritis of knee Qualifiers: Osteoarthritis type: primary Qualified Code(s): M17.0 - Bilateral primary osteoarthritis of knee (3) Fibromyalgia: Code(s): M79.7 - Fibromyalgia (4) Lump of scalp: Code(s): R22.0 - Localized swelling, mass and lump, head (5) Frequent headaches: Code(s): R51.9 - Headache, unspecified Plan #FM:The overall pains of fibromyalgia are about the same. She was given the refill for the cyclobenzaprine 10 mg to take 1 or 2 at night. She never takes it during the day because it makes her too sleepy. I was going to prescribed gabapentin but she has it recorded as an allergy causing swelling. She had stopped taking the Cymbalta and is not sure why. She wants to try the Celebrex again so I will send the prescription. She knows to take with food and PPI. #Achilles Pain: She still is more bothered by this right Achilles pain. Now the left is slightly tender as well. Xray shows a large Heel spur and may be causing the pain. I will send her to Podiatry for further evaluation. #Scalp lump and frequent headaches: Referral placed to Neurology. A follow-up in 6 months would be reasonable. I spent 40 minutes reviewing history, evaluating patient and documenting Orders: Referrals Neurology Referral R22.0 - Localized swelling, mass and lump, head, R51.9 - Headache, unspecified Podiatry Referral M25.571 - Pain in right ankle and joints of right foot, M76.61 - Achilles tendinitis, right leg Medications: New celecoxib (Celebrex) Take with Food 200 mg PO DAILY 90 caps 0RF M25.571 - Pain in right ankle and joints of right foot, M76.61 - Achilles tendinitis, right leg Coding Level of Care Code Est Pt Level 4 (73040) Diagnoses Achilles tendinitis, right leg M76.61 Primary osteoarthritis of both knees M17.0 Osteoarthritis type: primary Fibromyalgia M79.7 Lump of scalp R22.0 Frequent headaches R51.9
[2023-06-24 09:42] VITALS: BP 110/70; PULSE 82; O2SAT 100; BMI 32.3
== END 2023-06-24 10:14 | disposition home or self-care (01) ==
PROVIDERS: PCP Internal Medicine; Visit Provider Nurse Practitioner Family
DX: M76.61 Achilles tendinitis, right leg (principal); M17.0 Bilateral primary osteoarthritis of knee; M79.7 Fibromyalgia; R22.0 Localized swelling, mass and lump, head; R51.9 Headache, unspecified
CPT/HCPCS: 99214

== ENCOUNTER → 2023-06-24 09:26 | Outpatient (BNVA) | payer OTHER, SELFPAY | PROVIDERS: PCP Internal Medicine; Visit Provider Nurse Practitioner Family | DX: M76.61 Achilles tendinitis, right leg (principal); M17.0 Bilateral primary osteoarthritis of knee; M79.7 Fibromyalgia; R22.0 Localized swelling, mass and lump, head; R51.9 Headache, unspecified | CPT/HCPCS: 99212 ==

== ENCOUNTER 2024-02-18 10:15 | Outpatient (AMB) | payer OTHER, SELFPAY ==
--- NOTE | 2024-02-18 10:17 | A.OFFVIS_ITS ---
Vital Signs 02/18/24 10:18 Height 5 ft 6 in Weight 199 lb 11.821 oz BMI 32.2 BP 106/68 Blood Pressure Location Lt brachial Position Sitting Pulse 68 Pulse Source Pulse Oximeter Intake Visit Reasons: FM/Achilles Heel Pain Left Intake Note: Patient present today for Achilles Heel pain, Left. Last seen by Zoila Hernandez on 06/24/23. Account Strategist Required: Yes Account Strategist Language: Curriculum And Assessment Director Services: Account Strategist Present Account Strategist Name: Vasu [id number] Information Interpreted: non-clinical & clinical Accompanied by: Self / Same As Patient Allergies gabapentin Allergy (Intermediate, Verified 02/18/24 10:20) Swelling celecoxib [From Celebrex] Adverse Reaction (Mild, Verified 02/18/24 11:05) Swelling Medication List - Last Reconciled 02/18/24 by Nohemi Ann MD amlodipine 5 mg PO DAILY atorvastatin 40 mg PO DAILY blood sugar diagnostic (FreeStyle Lite Strips) As directed cetirizine (All Day Allergy (cetirizine)) 10 mg PO DAILY PRN cholecalciferol (vitamin D3) 50 mcg PO DAILY cyclobenzaprine TAKT 1-2 TABLETS BY MOUTH AT BEDTIME NEEDED FOR A MUSCLE SPASM diclofenac sodium 1% 2 grams topical BID duloxetine 30 mg PO DAILY duloxetine 60 mg PO DAILY famotidine 20 mg PO BID fluticasone propionate 50 mcg/actuation (Allergy Relief (fluticasone)) 1 spray intranasal DAILY hydrochlorothiazide 25 mg PO DAILY hydroxyzine pamoate 25 mg PO BID PRN lancets (FreeStyle Lancets) As directed meclizine 12.5 mg PO BID pantoprazole 40 mg PO DAILY topiramate 25 mg PO BID trazodone 200 mg PO BEDTIME HPI Comments Details: Patient is a 58 y.o. female with HTN, DM, HLD who is here for follow up of fibromyalgia and polyarticular OA Interval History: Last seen 06/24/2023 with Zoila Hernandez. At that time fibromyalgia was stable. Saw the wraparound facilitator for her heel spur and Achilles tendon pain. States that they did not offer any management options Has appt with neurology 02/25/2024 to follow up headaches Today patient has multiple complaints: - Bilateral hand numbness, worse at night but present throughout the day. Gets shock like sensation through her hands. She also feels like she has poor supplier specialist strength and drops things - Feels like she gets random bruises on her thighs and legs. No history of clots. No history of gum bleeding Rheumatologic History: Fibromyalgia - Previously tried gabapentin: states that she gets swelling from this - Celebrex: stopped because it cause swelling also Current Rheumatology Medication(s): Duloxetine 90mg daily Cyclobenzaprine 10mg daily PFS Medical History (Updated 02/18/24 @ 10:35 by Nohemi Ann MD) Bilateral hand numbness Lump of scalp Frequent headaches Gastritis Vertigo Vitamin D deficiency Hypercholesteremia DDD (degenerative disc disease), cervical Obesity Spondylosis Esophageal dysmotility Anxiety ADHD Migraine Diabetes Fibromyalgia HTN (hypertension) Surgical History H/O bariatric surgery Family History Mother Arthritis Father Arthritis Diabetes Social History Alcohol intake: former Patient Tobacco Use Status: Former Tobacco user Review of Systems Const Details: Review of Systems Constitutional: Denies fever, chills, weight loss ENT: Denies vision changes, eye pain or eye redness, dental caries, dry mouth GI: Denies nausea, vomiting, diarrhea, abdominal pain, change in BM Pulm: Denies SOB, MCNEAL, hemoptysis, wheezing Cards: Denies chest pain, palpitations Skin: Denies Raynaud's, rash, nail changes, photosensitivity, BROODMARE FOREMAN: Denies headaches, weakness, recurrent falls MSK: as per HPI All other systems reviewed and are unremarkable except noted above Physical Exam Vital Signs: Last Vital Signs Pulse 68 02/18/24 10:18 BP 106/68 02/18/24 10:18 BMI result Body Mass Index 32.2 Physical Examination CONSTITUITIONAL Patient alert and cooperative. Well appearing and in no apparent painful distress HEENT Conjunctiva and sclera clear. ?Pupils equal round and reactive to light. ?No lymphadenopathy. CHEST/RESPIRATORY SYSTEM Normal respiratory effort and able to speak in complete sentences. ?Clear to auscultation bilaterally. ?No crackles, rales, rhonchi, wheezes heard. CARDIAC SYSTEM Regular rate and rhythm. ?S1 and S2 heard no murmurs. ?Radial pulses intact bilaterally MSK Hands: ?Good supplier specialist strength bilaterally. No deformities. ?No synovitis noted to the MCPs, PIPs or DIPs. ?No tenderness to palpation of these joints. Wrists: ?Full range of motion at the wrists without pain. ?No tenderness to palpation or synovitis noted to the wrists. Positive Phalen's test bilaterally Elbows: Full range of motion without pain. No tenderness, weakness, swelling, increased warmth or erythema. Shoulders: Full range of motion without pain. No tenderness, weakness, swelling, increased warmth or erythema. Hips: Full range of motion without pain. Knees: ?Full range of motion. ?No tenderness, swelling, increased warmth or erythema.?No effusion or crepitations Ankles: Full range of motion. ?Tenderness to palpation of the achilles tendon Feet: ?Negative squeeze test. ?No tenderness to palpation or swelling of the MTPs. SKIN Skin intact without rashes. Results Reviewed Results Reviewed: Laboratory Tests 07/26/20 16:02 WBC 5.2 RBC 4.23 Hgb 12.8 Hct 39.0 Plt Count 365 Sodium 137 Potassium 4.2 Chloride 100 Carbon Dioxide 28 BUN 12 Creatinine 0.80 Assessment & Plan Assessment & Plan (1) Bilateral hand numbness: Code(s): R20.0 - Anesthesia of skin Category: Medical Plan: #Bilateral Hand Numbness History and exam is consistent with bilateral CTS Discussed therapeutic options: 1. Bilateral splinting + Pregabalin, 2. Corticosteroid injection, 3. Surgery Plan - EMG to confirm diagnosis - Printed splint for patient to purchase OTC - Pregabalin 75mg nightly - RTC 6 months. if no improvement will schedule steroid injection (2) Fibromyalgia: Code(s): M79.7 - Fibromyalgia Category: Medical Plan: #Fibromyalgia Unchanged Not currently engaging in stretching or structured exercise Plan - Continue cyclobenzaprine 5-10mg nightly - Continue duloxetine 90mg daily - Encourage stretching and structured exercise (3) History of bruising easily: Code(s): Z87.898 - Personal history of other specified conditions Plan: #Easy bruising No bruises seen on exam Plan - Check CBC - Refer back to PCP for formal evaluation Plan I spent 25 minutes reviewing the record and labs, seeing the patient, discussing the treatment plan and documenting in the medical record Orders: Orders Complete Blood Count Auto Diff Today Z87.898 - Personal history of other specified conditions NE electromyogram (EMG) Today R20.0 - Anesthesia of skin Medications: New pregabalin 75 mg PO BEDTIME 90 days 90 caps 1RF M79.7 - Fibromyalgia, R20.0 - Anesthesia of skin Coding Level of Care Code Est Pt Level 3 (73196) Diagnoses Bilateral hand numbness R20.0 Fibromyalgia M79.7 History of bruising easily Z87.890
[2024-02-18 10:18] VITALS: BP 106/68; PULSE 68; BMI 32.2
--- OUTSIDE RECORDS SUMMARY | 2024-02-24 01:32 | XMS_ITS | Patient Health Record ---
Author Organization [facility] Address [address] [place] [address] Care Team Providers Care New Grad Rn Name Role Phone Ami Castro MD Primary Care Provider Unavailabl e Allergies No Known Allergies Reason For Referral No Information Medications Medication SIG (Take, Route, Frequency, Duration) Notes Start Date End Date Status traZODone HCl 50 MG 1 tablet at bedtime Orally Once a day Active hydroCHLOROthiazide 25 MG 1 tab Orally qd Active Topamax Not-Taking Meclizine HCl 25 MG 1 tablet as needed Orally Once a day Active Nabumetone 750 MG 1 tablet Orally Twice a day for 30 days Active DULoxetine HCl 60 MG 1 capsule Orally Once a day Active Cholecalciferol 25 MCG (1000 UT) Orally Once a day Active Meloxicam 15 MG 1 tablet Orally Once a day Not-Taking Imitrex 50 MG 1 tablet at least 2 hours between doses as needed Orally Once a day Active tiZANidine HCl 4 MG 1-2 tabs Orally TID for 30 days 01/23/2020 Active Omeprazole 40 MG 1 tablet 30 minutes before a meal Orally Once a day Active Methocarbamol 500 MG 1 tablet Orally TID for 30 days 03/28/2019 Not-Taking Adderall 5 MG 1 tablet Orally qd Active Neurontin 300 MG 1 capsule Orally Once a day Not-Taking Fluticasone Furoate 50 MCG/ACT 2 puffs Nasally Once a day Active Voltaren 1 % apply 4g to affected area 4 times a day Transdermal QID for 30 days 09/28/2019 Not-Taking Cetirizine HCl 10 MG 1 tablet as needed Orally Once a day Active Baclofen 10 MG 1 tablet with food or milk Orally Three times a day for 30 day(s) 09/28/2019 Not-Taking Social History Tobacco Use: Social History Observation Description Date Details (start date - stop date) Never Smoker NA - NA Tobacco Use/Smoking Question Answer Notes Are you a nonsmoker Additional Findings: Tobacco Non-User Current no n-smoker Problems Problem Type SNOMED Code ICD Code Onset Dates Problem Status W/U Status Risk Notes Problem Osteoarthritis of knee (020553594) Bilateral primary osteoarthritis of knee (M17.0) Active confirmed Problem Lumbosacral spondylosis without myelopathy (23561733) Spondylosis without myelopathy or radiculopathy, lumbar region (M47.816) Active confirmed Plan Of Treatment No Information Insurance Providers Payer Name Payer Address Payer Phone Subscriber Number Group Number Insured Name Patient Relationship to Insured Coverage Start Date Coverage End Date [facility] [address] [address] [place] [phone] [id number] KATHY ALLEN Self - patient is the insured Medical (General) History Medical History History ICD Code primary osteoarthritis of both knees ddd fibromyalgia hypercholesterolemia depression impaired fasting glucose htn vit d deficiency migraine vertigo gastritis cholelithiasis Surgical History Surgery Date(Month/Year) Hospitalization History Reason Date(Month/Year) saw PCP and was RX'd topamax for headach es/ migraines
== END 2024-02-18 10:54 | disposition home or self-care (01) ==
PROVIDERS: PCP Internal Medicine; Visit Provider Student in an Organized Health Care Education/Training Program
DX: R20.0 Anesthesia of skin (principal); M79.7 Fibromyalgia; Z87.898 Personal history of other specified conditions
CPT/HCPCS: 99213

== ENCOUNTER → 2024-02-18 10:15 | Outpatient (BNVA) | payer OTHER, SELFPAY | PROVIDERS: PCP Internal Medicine; Visit Provider Student in an Organized Health Care Education/Training Program | DX: R20.2 Paresthesia of skin (principal); M79.7 Fibromyalgia; Z87.898 Personal history of other specified conditions | CPT/HCPCS: 99212 ==

== ENCOUNTER 2024-04-13 09:40 | Outpatient (REF) | payer OTHER, SELFPAY ==
--- NOTE | 2024-04-13 09:46 | EMG_ITS ---
Chief complaint: Bilateral hand numbness Reason for referral: Evaluate for Carpal Tunnel Syndrome Referred by: Dr. Ann Procedure done: Bilateral upper extremities NCS/EMG Precautions and/or limitations: None The limb temperature was monitored continuously and remained between 32-36 degrees C during the performance of the NCS. Nerve Conduction Studies Anti Sensory Summary Table ?Stim Site NR Onset (ms) Norm Onset (ms) Peak (ms) Norm Peak (ms) O-P Amp (?V) Norm O-P Amp Site1 Site2 Delta-0 (ms) Dist (cm) Lukas (m/s) Norm Lukas (m/s) Left Median Anti Sensory (2nd Digit) Wrist ? 2.0 3.1 <3.6 28.2 >10 Wrist 2nd Digit 2.0 14.0 70 Right Median Anti Sensory (2nd Digit) Wrist ? 2.4 3.2 <3.6 18.1 >10 Wrist 2nd Digit 2.4 14.0 58 Right Radial Anti Sensory (Thumb) Forearm ? 1.4 2.3 <3.1 38.4 Forearm Thumb 1.4 0.0 Left Ulnar Anti Sensory (5th Digit) Wrist ? 2.3 2.9 <3.7 18.1 >15.0 Wrist 5th Digit 2.3 14.0 61 Right Ulnar Anti Sensory (5th Digit) Wrist ? 2.2 2.8 <3.7 12.6 >15.0 Wrist 5th Digit 2.2 14.0 64 Motor Summary Table ?Stim Site NR Onset (ms) Norm Onset (ms) O-P Amp (mV) Norm O-P Amp iAmp (mV) Amp (1st) (%) Site1 Site2 Delta-0 (ms) Dist (cm) Lukas (m/s) Norm Lukas (m/s) Left Median Motor (Abd Poll Brev) Wrist ? 3.4 <3.9 7.3 >4.5 8.1 100.0 Elbow Wrist 3.7 21.5 58 >45 Elbow ? 7.1 7.1 7.9 97.3 Right Median Motor (Abd Poll Brev) Wrist ? 3.2 <3.9 7.7 >4.5 8.9 100.0 Elbow Wrist 4.1 22.0 54 >45 Elbow ? 7.3 8.0 9.2 103.9 Left Ulnar Motor (Abd Dig Minimi) Wrist ? 2.6 <3.0 10.3 >5 11.8 100.0 B Elbow Wrist 3.7 20.5 55 >45 B Elbow ? 6.3 8.2 9.5 79.6 A Elbow B Elbow 1.4 10.0 71 >45 A Elbow ? 7.7 7.9 9.3 76.7 Right Ulnar Motor (Abd Dig Minimi) Wrist ? 2.7 <3.0 10.4 >5 12.5 100.0 B Elbow Wrist 3.5 20.0 57 >45 B Elbow ? 6.2 8.3 10.0 79.8 A Elbow B Elbow 1.2 10.0 83 >45 A Elbow ? 7.4 7.8 9.2 75.0 EMG ?Side Muscle Nerve Root Ins Act Fibs Psw Amp Dur Poly Recrt Int Pat Comment Right 1stDorInt Ulnar C8-T1 Nml Nml Nml Nml Nml 0 Nml Complete Right FlexCarRad Median C6-7 Nml Nml Nml Nml Nml 0 Nml Complete Right Biceps Musculocut C5-6 Nml Nml Nml Nml Nml 0 Nml Complete Right Triceps Radial C6-7-8 Nml Nml Nml Nml Nml 0 Nml Complete Right Deltoid Axillary C5-6 Nml Nml Nml Nml Nml 0 Nml Complete Left 1stDorInt Ulnar C8-T1 Nml Nml Nml Nml Nml 0 Nml Complete Left FlexCarRad Median C6-7 Nml Nml Nml Nml Nml 0 Nml Complete Left Biceps Musculocut C5-6 Nml Nml Nml Nml Nml 0 Nml Complete Left Triceps Radial C6-7-8 Nml Nml Nml Nml Nml 0 Nml Complete Left Deltoid Axillary C5-6 Nml Nml Nml Nml Nml 0 Nml Complete FINDINGS: All motor and sensory nerves tested showed normal latencies, amplitudes and conduction velocities. Concentric needle EMG was performed in selected muscles of the bilateral upper extremities. Study did not reveal signs of electric abnormalities as shown in the table above. IMPRESSION: 1. This is a normal study. 2. There is no electrodiagnostic evidence for median neuropathy, ulnar neuropathy, brachial plexopathy, or cervical radiculopathy. Thank you for your kind referral. Inna Santiago MD, ARIAN Board Certified, [place] [employer] (ABPMR) Board Certified, [place] [employer] (ABEM) CODIN [phone] MTDD
== END 2024-04-13 09:41 | disposition home or self-care (01) ==
LOC: HO.NEURO 09:40
PROVIDERS: PCP Internal Medicine; Visit Provider Student in an Organized Health Care Education/Training Program
DX: R20.0 Anesthesia of skin (principal)
CPT/HCPCS: 95886; 95911

== ENCOUNTER → 2024-04-13 09:46 | Outpatient (BNV) | payer OTHER, SELFPAY | PROVIDERS: PCP Internal Medicine; Visit Provider Physical Medicine & Rehabilitation | DX: R20.0 Anesthesia of skin (principal); R20.2 Paresthesia of skin | CPT/HCPCS: 95886; 95911 ==

== ENCOUNTER 2024-10-03 08:14 | Outpatient (AMB) | payer OTHER, SELFPAY ==
--- OUTSIDE RECORDS SUMMARY | 2024-10-03 08:20 | XMS_ITS | Clinical Summary ---
Author Organization [facility] Address [address] [place] [address] Phone Care Team Providers Care Academic Interventionist Name Role Phone Carmel De Souza MD Primary Care Provider Allergies Active Allergy Reactions Criticality Noted Date Comments Gabapentin Swelling 07/01/2019 Ibuprofen 05/10/2024 Medications magnesium oxide-Mg AA chelate (Magnesium, oxide/AA chelate,) 300 mg capsule Take 1 capsule by mouth 1 (one) time each day. 4 Active hydrOXYzine pamoate (VISTARIL) 25 mg capsule TOME 1C P POR V A ORAL 2VECES AL D A CUANDO SEA NECESARIO PARA ANSIEDAD/PARA DORMIR 4 Active meclizine (ANTIVERT) 12.5 mg tablet TAKE 1 TABLET BY MOUTH 2 TIMES DAILY NEEDED 4 Active SUMAtriptan (IMITREX) 50 mg tablet TAKE 1 TABLET AT ONSET OF MIGRAINE, MAY REPEAT AFTER 2 HOURS IF NEEDED. Active ursodioL (ACTIGALL) 300 mg capsule Take 2 capsules (600 mg total) by mouth. 2 Active famotidine (PEPCID) 20 mg tablet TAKE 1 TABLET BY MOUTH 2 TIMES DAILY NEEDED FOR HEARTBURN. 180 tablet 3 4 Active cetirizine (ZyrTEC) 10 mg tablet Take 1 tablet (10 mg total) by mouth 1 (one) time each day. 90 tablet 3 5 Active hydroCHLOROthiazi de (HYDRODIURIL) 25 mg tabletIndications :Essential (primary) hypertension Take 1 tablet (25 mg total) by mouth 1 (one) time each day. 90 tablet 3 5 Active topiramate (TOPAMAX) 25 mg tablet TOME CRAIG TABLETA DOS VECES AL ANA 60 tablet 5 5 Active tamsulosin (FLOMAX) 0.4 mg 24 hr capsule Take 1 capsule (0.4 mg total) by mouth 1 (one) time each day. Capsules should be taken 30 minutes following the same meal each day. 30 each 5 05/19/19 26 Active pantoprazole (PROTONIX) 40 mg EC tablet Take 1 tablet (40 mg total) by mouth 1 (one) time each day before breakfast. Do not crush, chew, or split. 90 each 5 07/07/19 26 Active amLODIPine (NORVASC) 5 mg tablet Take 1 tablet (5 mg total) by mouth 1 (one) time each day. 90 tablet 1 5 Active atorvastatin (LIPITOR) 40 mg tablet TOME CRAIG TABLETA TODOS LOS MARIE AL ACOSTARSE 90 tablet 1 5 Active cyclobenzaprine (FLEXERIL) 10 mg tabletIndications :Fibromyalgia,Sarah n in right shoulder TAKE 1 TABLET BY MOUTH 2 TIMES DAILY NEEDED FOR MUSCLE SPASMS. 60 tablet 1 5 Active FreeStyle Lancets 28 gauge lancetsIndication s:Type 2 diabetes mellitus with hyperglycemia (CMS/HCC V24, CMS/HCC V28) USE ANGELICA LO INDICADO DOS VECES AL ANA 100 each 5 5 Active fluticasone propionate (FLONASE) 50 mcg/actuation nasal spray Administer 2 sprays into each nostril 1 (one) time each day. 48 mL 1 5 Active blood sugar diagnostic (FreeStyle Lite Strips) test stripIndications: Type 2 diabetes mellitus with hyperglycemia (CMS/HCC V24, CMS/HCC V28) USE TO TEST BLOOD SUGARS TWICE DAILY 100 strip 5 5 Active Active Problems Problem Noted Date Diagnosed Date Right kidney stone 05/18/2024 Esophageal dysmotility 02/03/2024 Type 2 diabetes mellitus wit hout complication, without long-term current use of insulin (CMS/HCC V24, CMS/HCC V28) 12/22/2022 COVID 08/31/2021 Binge eating disorder 08/06/2021 Overview (02/03/2024): [facility] Spondylosis of lumbar region without myelopathy or radiculopathy 09/27/2020 Uncontrolled type 2 diabetes mellitus with hyperglycemia ([facility] V24, [facility] V28) 09/19/2020 Attention deficit hyperactivity disorder (ADHD) 09/14/2020 Primary osteoarthritis of both knees 05/10/2018 DDD (degenerative disc disease), cervical 2017 Fibromyalgia 03/26/2017 Overview (02/03/2024): Gabapentin stopped due to leg swelling DDD (degenerative disc disease), lumbar 02/18/20 Hypercholesterolemia 12/04/2015 Depression 12/04/2015 Overview (02/03/2024): F/u psych [place] Impaired fasting glucose 12/04/2015 HTN (hypertension) 12/04/2015 Vitamin D deficiency 12/04/2015 Migraine 12/04/2015 Vertigo 12/04/2015 Gastritis 12/04/2015 Overview (02/03/2024): Mild / upper endoscopy 2014 Cholelithiasis 12/04/2015 Class 2 severe obesity due t o excess calories with serious comorbidity and body mass index (BMI) of 38.0 to 38.9 in adult ([facility] V24, [facility] V28) Encounters Date Type Department Care Team Description 08/31/2024 9:45 AM EDT Consult General Surgery [facility] [address] [place] [phone] Roberto Ness MD Gallstones 08/09/2024 9:08 AM EDT - 08/09/2024 11:59 PM EDT Hospital Encounter Ultrasound - [address] [place] [address] Right upper quadrant abdominal pain Discharge Disposition: Home or Self Care 07/18/2024 11:15 AM EDT Office Visit Bariatric Surgery - [facility] [address] [facility] [address] [place] [address] Julio Gaines MD Postoperative intestinal malabsorption (Primary Dx); Class 1 obesity due to excess calories with body mass index (BMI) of 31.0 to 31.9 in adult, unspecified whether serious comorbidity present 07/07/2024 Telephone Internal Medicine - [facility] [address] [facility] [address] [place] [address] Christa Sinclair MA Request For Order(s) (A [facility] ) 07/06/2024 9:20 AM EDT Office Visit Gastroenterology - [address] [place] [address] Beth Madrigal NP Right upper quadrant abdominal pain (Primary Dx); Chronic GERD without esophagitis 07/06/2024 Telephone Bariatric Surgery - [facility] [address] [facility] [address] [place] [address] Kath Luna RN from Last 3 Months Immunizations Name Administration Dates Next Due Influenza Quadravalent, MDCK , 0.5ml, preservative free (Flucelvax) 6mo and older 03/27/2021,03/14/2020,01/28/2019 Influenza Quadravalent, MDCK , 0.5ml, with preservative (Flucelvax) 6mo and older 12/11/2017 Pfizer SARS-CoV-2 COVID-19, mRNA, LNP-S, preservative free 08/09/2020 Tdap Tetanus diptheria acell ular pertussis (Boostrix; Adacel) 7yo and older 02/11/2017 Surgical History Surgery Date Site/Laterality Comments UPPER GASTROINTESTINAL ENDOSCOPY 05/2014 PROCEDURE: UPPER GI ENDOSCOPY/EXAM UPPER GASTROINTESTINAL ENDOSCOPY 11/27/2016 PROCEDURE: [place] UPPER GI ENDOSCOPY PERFORMED; COMMENT: normal ESOPHAGOGASTRODUODENOSCOPY 11/21/2020 PROCEDURE: [place] EGD TRANSORAL BIOPSY SINGLE/MULTIPLE; COMMENT: bilious fluid noted otherwise normal, biopsy pending COLONOSCOPY 2022 PROCEDURE: HISTORICAL COLONOSCOPY; COMMENT: nml Medical History Medical History Date Comments Hypercholesterolemia 12/04/2015 DX:Hypercho lesterolemia Depression 12/04/2015 DX:Depression HTN (hypertension) 12/04/2015 DX:HTN (hyper tension) Vitamin D deficiency 12/04/2015 DX:Vitamin D deficiency Anemia 12/04/2015 DX:Anemia Migraine 12/04/2015 DX:Migraine Vertigo 12/04/2015 DX:Vertigo Gastritis 12/04/2015 DX:Gastritis; CO MMENT: Mild / upper endoscopy 2015 Cholelithiasis 12/04/2015 DX:Cholelithiasi s Nephrolithiasis DX:Nephrolithias is; COMMENT: Dr. Hilario Rebolledo Uncontrolled type 2 diabetes mellitus with hyperglycemia ([facility] V24, [facility] V28) 09/19/2020 DX:Uncontrolled type 2 diabe charles mellitus with hyperglycemia ([facility]) Fibromyalgia DX:Fibromyalgia Esophageal dysmotility DX:Esopha geal dysmotility Binge eating disorder 08/06/2021 DX:Binge e ating disorder; COMMENT: Dr. Elvia [facility]- psychiatry Attention deficit hyperactiv ity disorder (ADHD) 09/14/2020 DX:Attention deficit hyperac tivity disorder (ADHD) Class 2 severe obesity due t o excess calories with serious comorbidity and body mass index (BMI) of 39.0 to 39.9 in adult ([facility] V24, [facility] V28) 05/11/2018 DX:Class 2 severe obe sity due to excess calories with serious comorbidity and body mass index (BMI) of 39.0 to 39.9 in adult ([facility]) DDD (degenerative disc disea se), cervical 03/26/2017 DX:DDD (degenerative disc disease), cervical DDD (degenerative disc disease), lumbar 02/18/20 DX:DDD (degenerative disc disease), lumbar Primary osteoarthritis of both knees 05/10/2018 DX:Primary osteoarthritis of both knees Spondylosis of lumbar region without myelopathy or radiculopathy 09/27/2020 DX:Spondylosis of lumbar r egion without myelopathy or radiculopathy Family History Medical History Relation Name Comments No Known Problems Aunt Depression Brother 1 No Known Problems Brother 2 No Known Problems Brother 3 No Known Problems Brother 4 No Known Problems Daughter 1 No Known Problems Daughter 2 Arthritis Father Diabetes Father No Known Problems Maternal Grandfather No Known Problems Maternal Grandmother Arthritis Mother Cataracts Other No Known Problems Paternal Grandfather No Known Problems Paternal Grandmother Other: stomach issues Sister 1 Nephrolithiasis Sister 2 No Known Problems Sister 3 No Known Problems Sister 4 No Known Problems Sister 5 No Known Problems Son Cataracts Uncle Blindness Neg Hx Breast cancer Neg Hx Glaucoma Neg Hx Macular degeneration Neg Hx Strabismus Neg Hx Relation Name Status Comments Aunt Brother 1 Alive Brother 2 Alive Brother 3 Alive Brother 4 Alive Daughter 1 Alive Daughter 2 Alive Father Alive Maternal Grandfather Maternal Grandmother Mother Alive Other Paternal Grandfather Paternal Grandmother Sister 1 Alive Sister 2 Alive Sister 3 Alive Sister 4 Alive Sister 5 Alive Son Alive Uncle Social History Tobacco Use Types Packs/Day Years Used Date Smoking Tobacco: Former Cigarettes 0.3 9.3 0 1981 - 03/16/1991 Smokeless Tobacco: Never Tobacco Cessation:Counseling Given: Not Answered Alcohol Use Standard Drinks/Week Comments No 0 (1 standard drink = 0.6 oz pur e alcohol) Comments Unknown Sex and Gender Information Value Date Recorded Sex Assigned at Not on file Legal Sex Female 1:00 PM EST Gender Identity Not on file Sexual Orientation Not on file Obstetrics History Last Filed Vital Signs Vital Sign Reading Time Taken Comments Blood Pressure 148/84 08/31/2024 9:41 AM EDT Pulse 67 08/31/2024 9:41 AM EDT Temperature 36.6 C (97.8 F) 07/18/2024 11:10 AM EDT Respiratory Rate 18 05/11/2024 1:18 AM EST Oxygen Saturation 98% 07/06/2024 9:32 AM EDT Inhaled Oxygen Concentration - - Weight 90.6 kg (199 lb 12.8 oz) 08/31/2024 9:41 AM EDT Height 170.2 cm (5' 7 ) 08/31/2024 9:41 AM EDT Body Mass Index 31.29 08/31/2024 9:41 AM EDT Plan of Treatment Upcoming Encounters Date Type Department Care Team (Late st Contact Info) Description 10/12/2024 9:00 AM EDT Office Visit Internal Medicine - [facility] [address] [facility] [address] [place] [phone] Carmel De Souza MD [address] [facility] [address] [place] [phone] 02/27/2025 9:30 AM EST Office Visit General Surgery - [facility] [address] [facility] [address] [place] [address] Roberto Ness MD [address] [facility] [address] [place] [address] 07/18/2025 9:15 AM EDT Office Visit Bariatric Surgery - [facility] [address] [facility] [address] [place] [address] Julio Gaines MD [address] [facility] [address] [place] [address] Health Maintenance Due Date Last Done Comments Diabetes: Annual Foot Exam 1976 Diabetes: Annual Retina Eye Exam 1976 Hepatitis B Vaccines (1 of 3 - 19+ 3-dose series) 1985 Pneumococcal Vaccine: 50+ Years (1 of 2 - PCV) 1985 Zoster Vaccines (1 of 2) 2016 Breast Cancer Screening 03/31/2020 03/31/2018, 11/13 Colorectal Cancer Screening: FIT-DNA (Cologuard) 02/22/2022 HIV Screening 02/22/2022 Social Influencers of Health Screening 02/22/2022 COVID-19 Vaccine ( season) 2023 08/20/2020, 08/09/2020 Depression Screening 03/16/2024 Diabetes: Blood Sugar Control Test (HGBA1C) 05/05/2024 11/03/2023, 11/03/2023 Diabetes: Annual Urine Albumin-Creatinine Ratio (uACR) 11/02/2024 11/03/2023 Influenza Vaccine (#1) 2024 , 03/14/2020, 01/28/2019, Additional history exists Diabetes: Annual GFR (Glomerular Filtration Rate) 05/10/2025 05/10/2024, 02/04/2024, 11/03/2023, Additional history exists Hypertension/CHF/CAD Annual BMP Blood Test 05/10/2025 05/10/2024, 02/04/2024, 11/03/2023, Additional history exists DTaP,Tdap,and Td Vaccines (2 - Td or Tdap) 02/11/2027 02/11/2017 Cervical Cancer Screening: HPV 08/18/2028 08/19/2023 Cholesterol Screening (Lipid Panel) 11/02/2028 11/03/2023, 11/03/2023 Colorectal Cancer Screening: Colonoscopy Discontinued 07/28/2022 Hepatitis C Screening Completed 11/03/2023 HIB Vaccines Aged Out No longer eligi ble based on patient's age to complete this topic HPV Vaccines Aged Out No longer eligi ble based on patient's age to complete this topic Hepatitis A Vaccines Aged Out No long er eligible based on patient's age to complete this topic IPV Vaccines Aged Out No longer eligi ble based on patient's age to complete this topic MMR Vaccines Aged Out No longer eligi ble based on patient's age to complete this topic Meningococcal ACWY Vaccine Aged Out N o longer eligible based on patient's age to complete this topic Meningococcal B Vaccine Aged Out No l onger eligible based on patient's age to complete this topic RSV Immunization Patients Under 20 months Aged Out No longer eligible based on patient's age to complete this topic Varicella Vaccines Aged Out No longer eligible based on patient's age to complete this topic Procedures Procedure Name Priority Date/Time Associated Diagnosis Comments US ABDOMEN LIMITED Routine 08/09/2024 9: 53 AM EDT Right upper quadrant abdominal pain HELICOBACTER PYLORI ANTIGEN, STOOL Routine 07/15/2024 9:40 AM EDT Right upper quadrant abdominal pain Chronic GERD without esophagitis COMPREHENSIVE METABOLIC PANEL STAT 05/10/2024 7:51 PM EST HM HEPATITIS C SCREENING Routine 11/03/2023 HM URINE ALBUMIN CREATININE RATIO Routine 11/03/2023 HEMOGLOBIN A1C Routine 11/03/2023 LIPID PANEL Routine 11/03/2023 HM HPV Routine 08/19/2023 HM COLONOSCOPY Routine 07/28/2022 SCR MAMMO BI INCL CAD Routine 03/31/2018 10:46 AM EST Encounter for screening mammogram for malignant neoplasm of breast from Last 3 Months or Most Recently Relevant to Health Maintenance Results * US Abdomen Limited (08/09/2024 9:53 AM EDT) Anatomical Region Laterality Modality Body Ultrasound 08/09/2024 11:2 4 AM EDT Narrative 08/09/2024 11:25 AM EDT Limited abdominal ultrasound. History right upper quadrant pain. Comparison with prior abdominal ultrasound from 11/28/2016. Gallbladder was visualized with multiple mobile stones. No pericholecystic fluid collections or wall thickening identified. There is no biliary ducts dilatation. Common bile duct measures 3 mm. Liver was visualized measuring 15.9 cm in long axis. There is coarse increased echogenicity which could be due to steatosis or chronic hepatocellular disease. There is normal flow in the portal vein. Pancreas is suboptimally visualized due to body habitus and bowel gas artifact. Visualized portion is unremarkable. Right kidney is normal in size and echogenicity. CONCLUSIONS: Cholelithiasis. Abnormal echogenicity of the liver without evidence of focal abnormalities, which could be due to steatosis or chronic hepatocellular disease. -------- FINAL REPORT -------- Dictated By: Guerda Toure Dictated Date: 08/09/2024 11:24 ET Assigned Physician: Guerda Toure Reviewed and Electronically Signed By: Guerda Toure Signed Date: 08/09/2024 11:25 ET Workstation ID: [id number] Transcribed By: Self Edit Transcribed Date: 08/09/2024 11:24 ET Procedure Note Guerda Toure MD - 08/09/2024 Limited abdominal ultrasound. History right upper quadrant pain. Comparison with prior abdominal ultrasound from 11/28/2016. Gallbladder was visualized with multiple mobile stones. No pericholecysticfluid collections or wall thickening identified. There is no biliary ductsdilatation. Common bile duct measures 3 mm. Liver was visualized [id number] cm in long axis. There is coarse increased echogenicity which couldbe due to steatosis or chronic hepatocellular disease. There is normalflow in the portal vein. Pancreas is suboptimally visualized due to bodyhabitus and bowel gas artifact. Visualized portion is unremarkable. Rightkidney is normal in size and echogenicity. CONCLUSIONS: Cholelithiasis. Abnormal echogenicity of the liver withoutevidence of focal abnormalities, which could be due to steatosis orchronic hepatocellular disease. -------- FINAL REPORT -------- Dictated By: Guerda Toure Dictated Date: 08/09/2024 11:24 ET Assigned Physician: Guerda Toure Reviewed and Electronically Signed By: Guerda Toure Signed Date: 08/09/2024 11:25 ET Workstation ID: [id number] Transcribed By: Self Edit Transcribed Date: 08/09/2024 11:24 ET Beth Madrigal NP IM US PROCEDURES Final Result * Helicobacter pylori antigen, stool (07/15/2024 9:40 AM EDT) Helicobacter Pylori Ag Not detected Not detected 07/19/2024 3:56 PM EDT [facility] Comment: This test was performed at [facility] using a chemiluminescent immunoassay intended for the qualitative determination of helicobacter pylori (H. pylori) antigen in human stool. The test is an aid in the diagnosis of patients suspected of H. pylori infection and to measure post therapy response from patients. Assay results should be used in conjunction with other clinical and laboratory data to assist the clinician in making individual patient management decisions. A negative test result does not preclude the possibility of the presence of H. pylori antigen in the specimen, which may occur if the level of antigen is below the detection limit of the test. Antimicrobials, proton pump inhibitors, and bismuth preparations are known to suppress H. pylori and, if ingested, may give a false negative result. In these cases a new fecal sample should be collected and tested 14 days after treatment has stopped. Positive results from patients that have used antibiotics, PPIs, or bismuth compounds in the 14 days prior to fecal sample collection are still considered accurate. This assay has not been evaluated in a pediatric population. This test has been approved as an in vitro diagnostic by the [place] Food and Drug Administration. Test performed at [facility], [address], [place] [address] Kelly Saldivar MD, PhD - Freezer Unloader Stool Rectum structure / Unknown Non-blood Collection / Unknown 07/15/2024 9:40 AM EDT 07/15/2024 9:40 AM EDT Beth Madrigal SENIOR ACCOUNTING ANALYST LAB BODY FLUIDS AND STOOLS FLAQUITA HURST Final Result [facility] [address] [place] [address] * Comprehensive metabolic panel (05/10/2024 7:51 PM EST) Sodium 138 133 - 145 mmol/L LAB CHEMISTRY METHOD 05/10/2024 8:38 PM [facility] Potassium 4.2 3.5 - 5.5 mmol/L LAB CHEMISTRY METHOD 05/10/2024 8:38 PM [facility] Chloride 109 96 - 110 mmol/L LAB CHEMISTRY METHOD 05/10/2024 8:38 PM [facility] CO2 26 21 - 32 mmol/L LAB CHEMISTRY METHOD 05/10/2024 8:38 PM [facility] Anion Gap 3 3 - 11 LAB CHEMISTRY METHOD 05/10/2024 8:38 PM [facility] Glucose 73 70 - 100 mg/dL LAB CHEMISTRY METHOD 05/10/2024 8:38 PM [facility] BUN 14 5 - 25 mg/dL LAB CHEMISTRY METHOD 05/10/2024 8:38 PM [facility] Creatinine 0.86 0.50 - 1.10 mg/dL LAB CHEMISTRY METHOD 05/10/2024 8:38 PM [facility] eGFR 79 >=60 mL/min/1. 73m2 LAB CHEMISTRY METHOD 05/10/2024 8:38 PM EST [facility] Comment:Calculation based on the Chronic Kidney Disease Epidemiology Collaboration (CKD-EPI) equation refit without adjustment for race. BUN/Creatinine Ratio 16.3 LAB CHEMISTRY METHOD 05/10/2024 8:38 PM [facility] Calcium 9.4 8.5 - 10.5 mg/dL LAB CHEMISTRY METHOD 05/10/2024 8:38 PM [facility] AST (SGOT) 20 10 - 42 unit/L LAB CHEMISTRY METHOD 05/10/2024 8:38 PM [facility] ALT (SGPT) 23 10 - 60 unit/L LAB CHEMISTRY METHOD 05/10/2024 8:38 PM [facility] Alkaline Phosphatase 89 42 - 121 unit/L LAB CHEMISTRY METHOD 05/10/2024 8:38 PM [facility] Total Protein 8.0 6.0 - 8.0 g/dL LAB CHEMISTRY METHOD 05/10/2024 8:38 PM [facility] Albumin 3.9 3.2 - 5.0 g/dL LAB CHEMISTRY METHOD 05/10/2024 8:38 PM [facility] Total Bilirubin 0.4 0.0 - 1.4 mg/dL LAB CHEMISTRY METHOD 05/10/2024 8:38 PM [facility] Blood Venous blood specimen / Unknown Venipuncture / Unknown 05/10/2024 7:51 PM EST 05/10/2024 8:00 PM EST us Malachi Martinez MD LAB BLOOD ORDERABLES Final Resu lt [facility] [address] [place] [address], [place] [phone] * Urine Albumin Creatinine Ratio (11/03/2023) Urine Albumin Creatinine Ratio Abstracted Historical Provider HEALTH MAINTENANCE Final Result * Hepatitis C Screening (11/03/2023) HM Hepatitis C Screening Abstracted Result [facility] HEALTH MAINTENANCE Final Result * Hemoglobin A1c (11/03/2023) [facility] Hemoglobin A1C 5.7 <=6.5 % Blood Venous blood specimen / Unknown Result [facility] LAB BLOOD ORDERABLES Carrie l Result * (ABNORMAL) Lipid panel (11/03/2023) [facility] LDL/HDL Ratio 3 0 - 4 Triglycerides 64 0 - 150 mg/dL Cholesterol 236(A) 0 - 200 mg/dL HDL 81 >=40 mg/dL LDL Cholesterol 143(A) 0 - 100 mg/dL Blood Venous blood specimen / Unknown Result [facility] LAB BLOOD ORDERABLES Carrie l Result * Cervical Cancer Screening: HPV (08/19/2023) [facility] Cervical Cancer Screening: HPV Negative, Abstracted Result [facility] Final Result * Colonoscopy (07/28/2022) [facility] Colonoscopy No Interpretation , Abstracted Anatomical Region Laterality Modality Other Result [facility] Final Result * SCR MAMMO BI INCL CAD (03/31/2018 10:46 AM EST) Anatomical Region Laterality Modality Radiographic Sujatha ging 11/13/2016 3:06 PM EDT Narrative 03/31/2018 4:05 PM EST This is a summary report. The complete report is available in the patient's medical record. If you cannot access the medical record, please contact the sending organization for a detailed fax or copy. Full field digital screening mammography, reviewed with CAD and compared to previous. The breasts are composed of fatty and fibroglandular tissue. No suspicious mass, architectural distortion or suspicious calcifications are identified. IMPRESSION: : No mammographic evidence of malignancy. BIRADS 1-Negative; N. 5 year breast cancer risk assessment 0.6 % Lifetime breast cancer risk assessment 4.9 % Breast cancer risk category Low (<15%) Procedure Note Dianne Moya, DO - 03/04/2022 This is a summary report. The complete report is available in thepatient's medical record. If you cannot access the medical record, pleasecontact the sending organization for a detailed fax or copy. Full field digital screening mammography, reviewed with CAD and comparedto previous. The breasts are composed of fatty and fibroglandular tissue.No suspicious mass, architectural distortion or suspicious calcificationsare identified. IMPRESSION: : No mammographic evidence of malignancy. BIRADS 1-Negative; N. 5 year breast cancer risk assessment 0.6 % Lifetime breast cancer risk assessment 4.9 % Breast cancer risk category Low (<15%) Ami Castro MD IMG XR PROCEDURES Final Result from Last 3 Months or Most Recently Relevant to Health Maintenance Insurance [facility] [employer] Care Teams Academic Interventionist Relationship Specialty Start Date End Date Carmel De Souza MD [address] [place] [phone] PCP - General 02/19/22
[2024-10-03 08:25] VITALS: PULSE 59; O2SAT 98; BMI 28.9
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
== END 2024-10-03 10:08 | disposition home or self-care (01) ==
LOC: HO.HSMS 08:15
PROVIDERS: PCP Internal Medicine; Visit Provider Nurse Practitioner Family
DX: R51.9 Headache, unspecified (principal); M54.2 Cervicalgia; M54.81 Occipital neuralgia; D64.9 Anemia, unspecified; R53.83 Other fatigue; R06.83 Snoring; G47.9 Sleep disorder, unspecified
CPT/HCPCS: 99204

== ENCOUNTER → 2024-10-03 08:14 | Outpatient (BNVA) | payer OTHER, SELFPAY | PROVIDERS: PCP Internal Medicine; Visit Provider Nurse Practitioner Family | DX: M54.2 Cervicalgia (principal); M54.81 Occipital neuralgia; D64.9 Anemia, unspecified; R53.83 Other fatigue; R51.9 Headache, unspecified; R06.83 Snoring; G47.9 Sleep disorder, unspecified | CPT/HCPCS: 99202 ==

== ENCOUNTER 2024-10-12 09:52 | Outpatient (REF) | payer OTHER, SELFPAY ==
--- OUTSIDE RECORDS SUMMARY | 2024-10-12 10:32 | XMS_ITS ---
Author Name [facility] Organization Unknown Care Team Organization Name Specialty Phone Email Start Date End Da te [facility] Carmel De Souza [facility] 05/21/2022 11/02/19 24 [facility] Ami Castro Primary [facility] 01/21/2022 4
--- OUTSIDE RECORDS SUMMARY | 2024-10-12 10:32 | XMS_ITS | Clinical Summary ---
Author Organization [facility] Address [address] [place] [address] Phone Care Team Providers Care Gluing Machine Offbearer Name Role Phone Carmel De Souza MD Primary Care Provider [phone] Allergies Active Allergy Reactions Criticality Noted Date [...] TWICE DAILY 100 strip 5 5 Active celecoxib (CeleBREX) 200 mg capsule Take 1 capsule (200 mg total) by mouth 1 (one) time each day. 30 each 5 Active Active Problems Problem Noted Date Diagnosed Date Right kidney stone 05/18/2024 Esophageal dysmotility 02/03/2024 Type 2 diabetes mellitus wit hout complication, without long-term current use of insulin ([facility] V24, [facility] V28) 12/22/2022 COVID 08/31/2021 Binge eating disorder 08/06/2021 Overview (02/03/2024): [facility] Spondylosis of lumbar region without myelopathy or radiculopathy 09/27/2020 Uncontrolled type 2 diabetes mellitus with hyperglycemia ([facility] V24, [facility] V28) 09/19/2020 Attention deficit hyperactivity disorder (ADHD) 09/14/2020 Primary osteoarthritis of both knees 05/10/2018 DDD (degenerative disc disease), cervical 2017 Fibromyalgia 03/26/2017 Overview (02/03/2024): Gabapentin stopped due to leg swelling DDD (degenerative disc disease), lumbar 02/18/20 17 Hypercholesterolemia 12/04/2015 Depression 12/04/2015 Overview (02/03/2024): F/u psych [place] Impaired fasting glucose 12/04/2015 HTN (hypertension) 12/04/2015 Vitamin D deficiency 12/04/2015 Migraine 12/04/2015 Vertigo 12/04/2015 Gastritis 12/04/2015 Overview (02/03/2024): Mild / upper endoscopy 2014 Cholelithiasis 12/04/2015 Class 2 severe obesity due t o excess calories with serious comorbidity and body mass index (BMI) of 38.0 to 38.9 in adult ([facility] V24, [facility] V28) Encounters Date Type Department Care Team Description 10/12/2024 9:00 AM EDT Office Visit Internal Medicine - [address] [place] [address] Carmel De Souza MD Neck pain (Primary Dx); Class 2 severe obesity due to excess calories with serious comorbidity and body mass index (BMI) of 38.0 to 38.9 in adult ([facility] V24, [facility] V28); Type 2 diabetes mellitus without complication, without long-term current use of insulin ([facility] V24, [facility] V28); Absence epileptic syndrome, intractable, with status epilepticus ([facility] V24, [facility] V28) 08/31/2024 9:45 AM EDT Consult General Surgery [facility] [address] [place] [address] Roberto Ness MD Gallstones 08/09/2024 9:08 AM EDT - 08/09/2024 11:59 PM EDT Hospital Encounter Ultrasound [place] [facility] [address] [place] [address] Right upper quadrant abdominal pain Discharge Disposition: Home or Self Care 07/18/2024 11:15 AM EDT Office Visit Bariatric Surgery [facility] [address] [place] [address] Julio Gaines MD Postoperative intestinal malabsorption (Primary Dx); Class 1 obesity due to excess calories with body mass index (BMI) of 31.0 to 31.9 in adult, unspecified whether serious comorbidity present from Last 3 Months Immunizations Name Administration [...] GI ENDOSCOPY/EXAM UPPER GASTROINTESTINAL ENDOSCOPY 11/27/2016 PROCEDURE: AL UPPER GI ENDOSCOPY PERFORMED; COMMENT: normal ESOPHAGOGASTRODUODENOSCOPY 11/21/2020 PROCEDURE: AL EGD TRANSORAL BIOPSY SINGLE/MULTIPLE; COMMENT: bilious fluid [...] Uncontrolled type 2 diabetes mellitus with hyperglycemia ([facility] V24, [facility] V28) 09/19/2020 DX:Uncontrolled type 2 diabe charles mellitus with hyperglycemia ([facility]) Fibromyalgia DX:Fibromyalgia Esophageal dysmotility DX:Esopha geal dysmotility Binge eating disorder 08/06/2021 DX:Binge e ating disorder; COMMENT: Dr. Elvia Holden- psychiatry Attention deficit hyperactiv ity disorder (ADHD) 09/14/2020 DX:Attention deficit hyperac tivity disorder (ADHD) Class 2 severe obesity due t o excess calories with serious comorbidity and body mass index (BMI) of 39.0 to 39.9 in adult ([facility] V24, [facility] V28) 05/11/2018 DX:Class 2 severe obe sity due to excess calories with serious comorbidity and body mass index (BMI) of 39.0 to 39.9 in adult ([facility]) DDD (degenerative disc disea se), cervical 03/26/2017 [...] Sign Reading Time Taken Comments Blood Pressure 124/82 10/12/2024 8:55 AM EDT Pulse 54 10/12/2024 8:55 AM EDT Temperature 36.6 C (97.9 F) 10/12/2024 8:55 AM EDT Respiratory Rate 18 10/12/2024 8:55 AM EDT Oxygen Saturation 98% 10/12/2024 8:55 AM EDT Inhaled Oxygen Concentration - - Weight 88.9 kg (196 lb) 10/12/2024 8:55 AM EDT Height 170.2 cm (5' 7 ) 10/12/2024 8:55 AM EDT Body Mass Index 30.7 10/12/2024 8:55 AM EDT Plan of Treatment Upcoming Encounters Date Type Department Care Team (Late st Contact Info) Description 02/13/2025 9:30 AM EST Office Visit Internal Medicine - [place] [address] [facility] [address] [place] [address] Luiz Barron NP [address] [facility] [address] [place] [address] 02/27/2025 9:30 AM EST Office Visit General Surgery - [place] 175 [facility] [address] [place] [phone] Roberto Ness MD 175 [facility] 110 [place] [address] 07/18/2025 9:15 AM EDT Office Visit Bariatric Surgery - [place] 175 [facility] [address] [place] [phone] Julio Gaines MD 175 [facility] 120 [place], [place] [phone] Health Maintenance Due Date Last Done Comments [...] Signed Date: 08/09/2024 11:25 ET Workstation ID: [id number] Transcribed By: Self Edit Transcribed Date: 08/09/2024 11:24 ET Procedure Note Guerda Toure MD - 08/09/2024 Limited abdominal ultrasound. History right upper quadrant pain. Comparison with prior abdominal ultrasound from 11/28/2016. Gallbladder was visualized with multiple mobile stones. No pericholecysticfluid collections or wall thickening identified. There is no biliary ductsdilatation. Common bile duct measures 3 mm. Liver was visualized awehnrvon28.9 cm in long axis. There is coarse [...] Signed Date: 08/09/2024 11:25 ET Workstation ID: [id number] Transcribed By: Self Edit Transcribed Date: 08/09/2024 11:24 ET Beth Madrigal NP [facility] PROCEDURES Final Result * Helicobacter pylori antigen, stool (07/15/2024 9:40 AM EDT) Helicobacter Pylori Ag Not detected Not detected 07/19/2024 3:56 PM EDT [facility] Comment: This test was performed at [facility] using a chemiluminescent immunoassay intended for the [...] Food and Drug Administration. Test performed at [facility], [address], [place] [address] Kelly Saldivar MD, PhD - Developmental Behavioral Physician Stool Rectum structure / Unknown Non-blood Collection / Unknown 07/15/2024 9:40 AM EDT 07/15/2024 9:40 AM EDT Beth Madrigal [facility] BODY FLUIDS AND STOOLS FLAQUITA HURST Final Result [facility] [address] [place] [address] * Comprehensive metabolic panel (05/10/2024 7:51 PM EST) Sodium 138 133 - 145 mmol/L LAB CHEMISTRY METHOD 05/10/2024 8:38 PM [facility] Potassium 4.2 3.5 - 5.5 mmol/L LAB CHEMISTRY METHOD 05/10/2024 8:38 PM [facility] Chloride 109 96 - 110 mmol/L LAB CHEMISTRY METHOD 05/10/2024 8:38 PM [facility] CO2 26 21 - 32 mmol/L LAB CHEMISTRY METHOD 05/10/2024 8:38 PM [facility] Anion Gap 3 3 - 11 LAB CHEMISTRY METHOD 05/10/2024 8:38 PM [facility] Glucose 73 70 - 100 mg/dL LAB CHEMISTRY METHOD 05/10/2024 8:38 PM [facility] BUN 14 5 - 25 mg/dL LAB CHEMISTRY METHOD 05/10/2024 8:38 PM [facility] Creatinine 0.86 0.50 - 1.10 mg/dL LAB CHEMISTRY METHOD 05/10/2024 8:38 PM [facility] eGFR 79 >=60 mL/min/1. 73m2 LAB CHEMISTRY METHOD 05/10/2024 8:38 PM [facility] Comment:Calculation based on the Chronic Kidney Disease Epidemiology Collaboration (CKD-EPI) equation refit without adjustment for race. BUN/Creatinine Ratio 16.3 LAB CHEMISTRY METHOD 05/10/2024 8:38 PM [facility] Calcium 9.4 8.5 - 10.5 mg/dL LAB CHEMISTRY METHOD 05/10/2024 8:38 PM [facility] AST (SGOT) 20 10 - 42 unit/L LAB CHEMISTRY METHOD 05/10/2024 8:38 PM [facility] ALT (SGPT) 23 10 - 60 unit/L LAB CHEMISTRY METHOD 05/10/2024 8:38 PM [facility] Alkaline Phosphatase 89 42 - 121 unit/L LAB CHEMISTRY METHOD 05/10/2024 8:38 PM [facility] Total Protein 8.0 6.0 - 8.0 g/dL LAB CHEMISTRY METHOD 05/10/2024 8:38 PM [facility] Albumin 3.9 3.2 - 5.0 g/dL LAB CHEMISTRY METHOD 05/10/2024 8:38 PM [facility] Total Bilirubin 0.4 0.0 - 1.4 mg/dL LAB CHEMISTRY METHOD 05/10/2024 8:38 PM [facility] Blood Venous blood specimen / Unknown Venipuncture / Unknown 05/10/2024 7:51 PM EST 05/10/2024 8:00 PM EST us Malachi Martinez MD LAB BLOOD ORDERABLES Final Resu lt [facility] [address] [place] [address], [place] [phone] * Urine Albumin Creatinine Ratio (11/03/2023) Urine Albumin Creatinine Ratio Abstracted Historical Provider HEALTH MAINTENANCE Final Result * Hepatitis C Screening (11/03/2023) Pathologist [facility] Hepatitis C Screening Abstracted Result [facility] Final Result * Hemoglobin A1c (11/03/2023) [facility] Hemoglobin A1C 5.7 <=6.5 % Blood Venous blood specimen / Unknown Result [facility] LAB BLOOD ORDERABLES Carrie l Result * (ABNORMAL) Lipid panel (11/03/2023) [facility] LDL/HDL Ratio 3 0 - 4 Triglycerides 64 0 - 150 mg/dL Cholesterol 236(A) 0 - 200 mg/dL HDL 81 >=40 mg/dL LDL Cholesterol 143(A) 0 - 100 mg/dL Blood Venous blood specimen / Unknown Result [facility] LAB BLOOD ORDERABLES Carrie l Result * Cervical Cancer Screening: HPV (08/19/2023) [facility] Cervical Cancer Screening: HPV Negative, Abstracted Result [facility] Final Result * Colonoscopy (07/28/2022) [facility] Colonoscopy No Interpretation , Abstracted Anatomical Region Laterality Modality Other Result [facility] Final Result * SCR MAMMO BI INCL [...] Most Recently Relevant to Health Maintenance Insurance [facility] [employer] PLAN Care Teams Gluing Machine Offbearer Relationship Specialty Start Date End Date Carmel De oSuza MD [address] [place] [phone] PCP - General 02/19/22
[2024-10-12 13:22] LABS: Hematocrit 34.8 % (37.0-47.0); Hemoglobin 11.6 g/dl (12.0-16.0); Imm Gran Abs Auto 0.00 X10*3/uL (0.00-0.03); Imm Gran Pct Auto 0.0 % (0.0-0.4); Lymphocytes Absolute Auto 2.2 X10*3/uL (1.2-4.9); MANUAL DIFF FLAG SCAN; Mean Corpuscular HGB Conc 33.3 g/dl (31.0-35.0); Mean Corpuscular Hemoglobin 30.2 pg (27.0-33.0); Mean Corpuscular Volume 90.6 fL (80.0-98.0); NRBC Abs Auto 0.000 X10*3/uL (0.0-0.012); NRBC Pct Auto 0.0 /100WBC (0.0-0.2); Platelet Count 249 X10*3/uL (160-400); Red Blood Count 3.84 X10*6/uL (4.20-5.50); SCAN SMEAR FLAG 1; White Blood Count 3.5 X10*3/uL (4.8-10.8)
[2024-10-12 13:51] LABS: Alanine Aminotransferase 28 U/L (0-31); Albumin Level 4.3 g/dL (3.5-5.0); Alkaline Phosphatase 81 U/L (39-117); Anion Gap 11 (12-20); Aspartate Amino Transferase 53 U/L (5-31); Blood Urea Nitrogen 17 mg/dL (9-16); Calcium 9.3 mg/dL (8.4-10.2); Carbon Dioxide 27 mmol/L (22-29); Chloride 108 mmol/L (96-108); Estimated Glomerular Filt Rate > 60; Iron 71 mcg/dL (30-160); Magnesium 2.2 mg/dL (1.6-2.6); Percent Iron Saturation 26 % (15-50); Potassium 5.4 mmol/L (3.3-5.1); Sodium 141 mmol/L (135-145); Total Iron Binding Capacity 272 mcg/dL (228-428); Total Protein 7.8 g/dL (6.5-8.0); Unsaturated Iron Binding 201 ug/dL
[2024-10-12 13:53] LABS: Ferritin 90 ng/mL (10-250)
[2024-10-12 14:09] LABS: Folate 10.8 ng/mL (> or = 4.0); Vitamin B12 482 pg/mL (200-900)
[2024-10-15 10:38] LABS: Anti Nuclear Antibody Screen NEGATIVE (NEGATIVE)
[2024-10-16 17:43] LABS: Vitamin D 25-OH, D2 <4 ng/mL; Vitamin D 25-OH, D3 22 ng/mL; Vitamin D 25-OH, Total 22 ng/mL (30-100)
== END 2024-10-12 09:53 | disposition home or self-care (01) ==
LOC: HO.HKASLDS 09:52
PROVIDERS: Visit Provider Nurse Practitioner Family
DX: Z01.84 Encounter for antibody response examination (principal); E11.9 Type 2 diabetes mellitus without complications; M47.812 Spondylosis without myelopathy or radiculopathy, cervical region; D64.9 Anemia, unspecified; I10 Essential (primary) hypertension; R53.83 Other fatigue
CPT/HCPCS: 36415; 80053; 82306; 82607; 82728; 82746; 83540; 83735; 84443; 85025; 85652; 86038; 86140; 86431

== ENCOUNTER 2024-10-21 11:16 | Outpatient (REF) | payer OTHER, SELFPAY ==
--- NOTE | ~2024-10-21 | MR_ITS ---
CLINICAL HISTORY: R51.9 - Headache, unspecified MR of the brain with and without contrast Comparison: None Findings: No acute infarction, hemorrhage, mass-effect or herniation. No abnormal enhancement. No hydrocephalus. Signal intensity is within normal limits for patient's age. No extra-axial fluid collection or mass. Unremarkable sella. Intact flow voids. Normal orbits. Clear paranasal sinuses and mastoid air cells. Unremarkable osseous structures. Impression: Normal brain MR. This document has been electronically signed by: Rupali Mir MD on 10/21/2024 16:35:31
--- OUTSIDE RECORDS SUMMARY | 2024-10-21 11:21 | XMS_ITS | Clinical Summary ---
Author Organization [facility] Address [address] [place] [address] Phone Care Team Providers Care Scow Captain Name Role Phone Carmel De Souza MD Primary Care Provider [phone] Allergies Active Allergy Reactions Criticality Noted Date [...] time each day. 30 each 5 Active DULoxetine (CYMBALTA) [address] capsule Take 1 capsule (30 mg total) by mouth 1 (one) time each day. 90 capsule 3 5 Active Active Problems Problem Noted Date Diagnosed Date Right kidney stone 05/18/2024 Esophageal dysmotility 02/03/2024 Type 2 diabetes mellitus wit hout complication, without long-term current use of insulin ([facility] [place], [facility] V28) 12/22/2022 COVID 08/31/2021 Binge eating disorder 08/06/2021 Overview (02/03/2024): Dr. Elvia LovettLantigua- psychiatry Spondylosis of lumbar region without myelopathy or radiculopathy 09/27/2020 Uncontrolled type 2 diabetes mellitus with hyperglycemia ([facility] V24, [facility] V28) 09/19/2020 Attention deficit hyperactivity disorder (ADHD) 09/14/2020 Primary osteoarthritis of both knees 05/10/2018 DDD (degenerative disc disease), cervical 2017 Fibromyalgia 03/26/2017 Overview (02/03/2024): Gabapentin stopped due to leg swelling DDD (degenerative disc disease), lumbar 02/18/20 Hypercholesterolemia 12/04/2015 Depression 12/04/2015 Overview (02/03/2024): F/u psych [place] Impaired fasting glucose 12/04/2015 HTN (hypertension) 12/04/2015 Vitamin D deficiency 12/04/2015 Migraine 12/04/2015 Vertigo 12/04/2015 Gastritis 12/04/2015 Overview (02/03/2024): Mild / upper endoscopy 2015 Cholelithiasis 12/04/2015 Class 2 severe obesity due t o excess calories with serious comorbidity and body mass index (BMI) of 38.0 to 38.9 in adult ([facility] V24, [facility] V28) Encounters Date Type Department Care Team Description 10/12/2024 9:00 AM EDT Office Visit Internal Medicine - [address] [place] [address] Carmel De Souza MD Neck pain (Primary Dx); Class 2 severe obesity due to excess calories with serious comorbidity and body mass index (BMI) of 38.0 to 38.9 in adult ([facility] V24, [facility] V28); Type 2 diabetes mellitus without complication, without long-term current use of insulin ([facility] V24, [facility] V28); Absence epileptic syndrome, intractable, with status epilepticus ([facility] V24, [facility] V28) 08/31/2024 9:45 AM EDT Consult General Surgery - [place] [address] [place] [address] Roberto Ness MD Gall[place] 08/09/2024 9:08 AM EDT - 08/09/2024 11:59 PM EDT Hospital Encounter Ultrasound - [facility] [address] [place] [address] Right upper quadrant abdominal pain Discharge Disposition: Home or Self Care from Last 3 Months Immunizations Name Administration [...] GI ENDOSCOPY/EXAM UPPER GASTROINTESTINAL ENDOSCOPY 11/27/2016 PROCEDURE: [place] UPPER GI ENDOSCOPY PERFORMED; COMMENT: normal ESOPHAGOGASTRODUODENOSCOPY 11/21/2020 PROCEDURE: [place] EGD TRANSORAL BIOPSY SINGLE/MULTIPLE; COMMENT: bilious fluid noted otherwise normal, biopsy pending COLONOSCOPY 2022 PROCEDURE: HISTORICAL COLONOSCOPY; COMMENT: nml Medical History Medical History Date Comments Hypercholesterolemia 12/04/2015 DX:Hypercho lesterolemia Depression 12/04/2015 DX:Depression HTN (hypertension) 12/04/2015 DX:HTN (hyper tension) Vitamin D deficiency 12/04/2015 DX:Vitamin D deficiency Anemia 12/04/2015 DX:Anemia Migraine 12/04/2015 DX:Migraine Vertigo 12/04/2015 DX:Vertigo Gastritis 12/04/2015 DX:Gastritis; CO MMENT: Mild / upper endoscopy 2014 Cholelithiasis 12/04/2015 DX:Cholelithiasi s Nephrolithiasis DX:Nephrolithias is; COMMENT: Dr. Hilario Rebolledo Uncontrolled type 2 diabetes mellitus with hyperglycemia ([facility] V24, [facility] V28) 09/19/2020 DX:Uncontrolled type 2 diabe charles mellitus with hyperglycemia ([facility]) Fibromyalgia DX:Fibromyalgia Esophageal dysmotility DX:Esopha geal dysmotility Binge eating disorder 08/06/2021 DX:Binge e ating disorder; COMMENT: Dr. Elvia Holden- psychiatry Attention deficit hyperactiv ity disorder (ADHD) 09/14/2020 DX:Attention deficit hyperac tivity disorder (ADHD) Class 2 severe obesity due t o excess calories with serious comorbidity and body mass index (BMI) of 39.0 to 39.9 in adult ([facility] V24, [facility] V28) 05/11/2018 DX:Class 2 severe obe sity due to excess calories with serious comorbidity and body mass index (BMI) of 39.0 to 39.9 in adult ([facility]) DDD (degenerative disc disea se), cervical 03/26/2017 [...] Care Team (Late st Contact Info) Description 11/11/2024 8:30 AM EDT Evaluation [facility] Rehabilitation - [place] [address] [facility] [address] [place] [phone] Isaac Medina, PT 02/13/2025 9:30 AM EST Office Visit Internal Medicine - [place] 175 [facility] [address] [place] [phone] Luiz Barron, [place] [address] [facility] [address] [place] [address] 02/27/2025 9:30 AM EST Office Visit General Surgery - [place] [address] [facility] [address] [place] [address] Roberto Ness MD [address] [facility] [address] [place], [place] [phone] 07/18/2025 9:15 AM EDT Office Visit Bariatric Surgery - [place] [address] [facility] [address] [place] [address] Julio Gaines MD 175 [facility] [address] [place] [address] Health Maintenance Due Date Last Done Comments [...] AM EDT Right upper quadrant abdominal pain COMPREHENSIVE METABOLIC PANEL STAT 05/10/2024 7:51 PM EST HEPATITIS C SCREENING Routine 11/03/2023 URINE ALBUMIN CREATININE RATIO Routine 11/03/2023 HEMOGLOBIN A1C Routine 11/03/2023 LIPID PANEL Routine 11/03/2023 HM HPV Routine 08/19/2023 COLONOSCOPY Routine 07/28/2022 SCR MAMMO BI INCL [...] Signed Date: 08/09/2024 11:25 ET Workstation ID: [id number] Transcribed By: Self Edit Transcribed Date: 08/09/2024 11:24 ET Procedure Note Guerda Toure MD - 08/09/2024 Limited abdominal ultrasound. History right upper quadrant pain. Comparison with prior abdominal ultrasound from 11/28/2016. Gallbladder was visualized with multiple mobile stones. No pericholecysticfluid collections or wall thickening identified. There is no biliary ductsdilatation. Common bile duct measures 3 mm. Liver was visualized .9 cm in long axis. There is coarse [...] Signed Date: 08/09/2024 11:25 ET Workstation ID: [id number] Transcribed By: Self Edit Transcribed Date: 08/09/2024 11:24 ET us Beth Madrigal NP IMG US PROCEDURES Final Result * Comprehensive metabolic panel (05/10/2024 7:51 PM [...] mg/dL LAB CHEMISTRY METHOD 05/10/2024 8:38 PM EST [facility] eGFR 79 >=60 mL/min/1. 73m2 [...] MD LAB BLOOD ORDERABLES Final Resu lt [facility] [address] [place] [address], * Urine Albumin Creatinine Ratio (11/03/2023) Urine Albumin Creatinine Ratio Abstracted Result [facility] Final Result * Hepatitis C Screening (11/03/2023) [facility] Hepatitis C Screening Abstracted Result [facility] Final Result * Hemoglobin A1c (11/03/2023) [facility] Hemoglobin A1C 5.7 <=6.5 % Blood Venous blood specimen / Unknown Result [facility] LAB BLOOD ORDERABLES Carrie l Result * (ABNORMAL) Lipid panel (11/03/2023) [facility] LDL/HDL Ratio 3 0 - 4 Triglycerides 64 0 - 150 mg/dL Cholesterol 236(A) 0 - 200 mg/dL HDL 81 >=40 mg/dL LDL Cholesterol 143(A) 0 - 100 mg/dL Blood Venous blood specimen / Unknown Result [facility] LAB BLOOD ORDERABLES Carrie l Result * Cervical Cancer Screening: HPV (08/19/2023) [facility] Cervical Cancer Screening: HPV Negative, Abstracted Result [facility] Final Result * Colonoscopy (07/28/2022) [facility] Colonoscopy No Interpretation , Abstracted Anatomical Region Laterality Modality Other Result [facility] Final Result * SCR MAMMO [...] Most Recently Relevant to Health Maintenance Insurance [facility] [employer] PL[employer] Care Teams Scow Captain Relationship Specialty Start Date End Date Carmel De Souza MD [address] [facility] [address] [place] [phone] PCP - General 02/19/22
== END 2024-10-21 11:17 | disposition home or self-care (01) ==
LOC: HO.MRI 11:16
PROVIDERS: PCP Internal Medicine; Visit Provider Nurse Practitioner Family
DX: M54.81 Occipital neuralgia (principal); R51.9 Headache, unspecified
CPT/HCPCS: 70553; A9585

== ENCOUNTER → 2024-10-21 11:23 | Outpatient (BNV) | payer OTHER, SELFPAY | PROVIDERS: PCP Internal Medicine; Visit Provider Radiology Diagnostic Radiology | DX: R51.9 Headache, unspecified (principal) | CPT/HCPCS: 70553 ==

== ENCOUNTER 2024-10-24 09:06 | Outpatient (REF) | payer OTHER, SELFPAY ==
--- OUTSIDE RECORDS SUMMARY | 2024-10-24 09:33 | XMS_ITS | Clinical Summary ---
Author Organization [facility] Address [address] [place] [address] Phone Care Team Providers Care Aviation Safety Equipment Technician Name Role Phone Carmel De Souza MD Primary Care Provider [phone] Allergies Active Allergy Reactions Criticality Noted Date [...] complication, without long-term current use of insulin ([facility] V24, [facility] V28) 12/22/2022 COVID 08/31/2021 Binge eating disorder 08/06/2021 Overview (02/03/2024): Dr. Elvia LovettLantigua- psychiatry Spondylosis of lumbar region without myelopathy or radiculopathy 09/27/2020 Uncontrolled type 2 diabetes mellitus with hyperglycemia ([facility] V24, [facility] V28) 09/19/2020 Attention deficit hyperactivity disorder (ADHD) 09/14/2020 Primary osteoarthritis of both knees 05/10/2018 DDD (degenerative disc disease), cervical 2017 Fibromyalgia 03/26/2017 Overview (02/03/2024): Gabapentin stopped due to leg swelling DDD (degenerative disc disease), lumbar 02/18/20 Hypercholesterolemia 12/04/2015 Depression 12/04/2015 Overview (02/03/2024): F/u psych [place] Impaired fasting glucose 12/04/2015 HTN (hypertension) 12/04/2015 Vitamin D deficiency 12/04/2015 Migraine 12/04/2015 Vertigo 12/04/2015 Gastritis 12/04/2015 Overview (02/03/2024): Mild / upper endoscopy 2015 Cholelithiasis 12/04/2015 Class 2 severe obesity due t o excess calories with serious comorbidity and body mass index (BMI) of 38.0 to 38.9 in adult ([facility] V24, [facility] V28) Encounters Date Type Department Care Team Description 10/24/2024 Telephone Gastroenterology - [place] [address] [place] [address] Beth Madrigal NP Results 10/12/2024 9:00 AM EDT Office Visit Internal Medicine - [place] [address] [place] [address] Carmel De Souza MD Neck pain (Primary Dx); Class 2 severe obesity due to excess calories with serious comorbidity and body mass index (BMI) of 38.0 to 38.9 in adult ([facility] V24, [facility] V28); Type 2 diabetes mellitus without complication, without long-term current use of insulin ([facility] V24, [facility] V28); Absence epileptic syndrome, intractable, with status epilepticus ([facility] V24, [facility] V28) 08/31/2024 9:45 AM EDT Consult General Surgery [facility] [address] [facility] [address] [place] [address] Roberto Ness MD Gallstones 08/09/2024 9:08 AM EDT - 08/09/2024 11:59 PM EDT Hospital Encounter [facility]trasound [place] [facility] [address] [place] [address] Right upper quadrant abdominal pain [...] GI ENDOSCOPY/EXAM UPPER GASTROINTESTINAL ENDOSCOPY 11/27/2016 PROCEDURE: IN UPPER GI ENDOSCOPY PERFORMED; COMMENT: normal ESOPHAGOGASTRODUODENOSCOPY 11/21/2020 PROCEDURE: IN EGD TRANSORAL BIOPSY SINGLE/MULTIPLE; COMMENT: bilious fluid [...] Uncontrolled type 2 diabetes mellitus with hyperglycemia ([facility] V24, [facility] V28) 09/19/2020 DX:Uncontrolled type 2 diabe charles mellitus with hyperglycemia ([facility]) Fibromyalgia DX:Fibromyalgia Esophageal dysmotility DX:Esopha geal dysmotility Binge eating disorder 08/06/2021 DX:Binge e ating disorder; COMMENT: Dr. Elvia Holden- psychiatry Attention deficit hyperactiv ity disorder (ADHD) 09/14/2020 DX:Attention deficit hyperac tivity disorder (ADHD) Class 2 severe obesity due t o excess calories with serious comorbidity and body mass index (BMI) of 39.0 to 39.9 in adult ([facility] V24, [facility] V28) 05/11/2018 DX:Class 2 severe obe sity due to excess calories with serious comorbidity and body mass index (BMI) of 39.0 to 39.9 in adult ([facility]) DDD (degenerative disc disea se), cervical 03/26/2017 [...] Info) Description 11/11/2024 8:30 AM EDT Evaluation [facility] [address] [facility] [address] [place] [address] Isaac Medina, PT 02/13/2025 9:30 AM EST Office Visit Internal Medicine - [place] [address] [facility] [address] [place] [phone] Luiz Barron NP [address] [facility] [address] [place] [address] 02/27/2025 9:30 AM EST Office Visit General Surgery - [place] [address] [facility] [address] [place] [phone] Roberto Ness MD [address] [facility] [address] [place] [address] 07/18/2025 9:15 AM EDT Office Visit Bariatric Surgery - [place] [address] [facility] [address] [place] [phone] Julio Gaines MD [address] [facility] [address] [place] [address] Health Maintenance Due Date Last Done Comments [...] Guerda Toure Reviewed and Electronically Signed By: Gureda Toure Signed Date: 08/09/2024 11:25 ET Workstation ID: [id number] Transcribed By: Self Edit Transcribed Date: 08/09/2024 11:24 ET Procedure Note Guerda Toure MD - 08/09/2024 Limited abdominal ultrasound. History right upper quadrant pain. Comparison with prior abdominal ultrasound from 11/28/2016. Gallbladder was visualized with multiple mobile stones. No pericholecysticfluid collections or wall thickening identified. There is no biliary ductsdilatation. Common bile duct measures 3 mm. Liver was visualized [id number] cm in long axis. There is coarse [...] Signed Date: 08/09/2024 11:25 ET Workstation ID: [id number] Transcribed By: Self Edit Transcribed Date: 08/09/2024 11:24 ET us Beth Madrigal NP IMG US PROCEDURES Final Result * Comprehensive metabolic panel (05/10/2024 7:51 PM EST) Sodium 138 133 - 145 mmol/L LAB CHEMISTRY METHOD 05/10/2024 8:38 PM [facility] Potassium 4.2 3.5 - 5.5 mmol/L LAB CHEMISTRY METHOD 05/10/2024 8:38 PM [facility] Chloride 109 96 - 110 mmol/L LAB CHEMISTRY METHOD 05/10/2024 8:38 PM [facility] CO2 26 21 - 32 mmol/L LAB CHEMISTRY METHOD 05/10/2024 8:38 PM [facility] Anion Gap 3 3 - 11 LAB CHEMISTRY METHOD 05/10/2024 8:38 PM [facility] Glucose 73 70 - 100 mg/dL LAB CHEMISTRY METHOD 05/10/2024 8:38 PM [facility] BUN 14 5 - 25 mg/dL LAB CHEMISTRY METHOD 05/10/2024 8:38 PM [facility] Creatinine 0.86 0.50 - 1.10 mg/dL LAB CHEMISTRY METHOD 05/10/2024 8:38 PM [facility] eGFR 79 >=60 mL/min/1. 73m2 LAB CHEMISTRY METHOD 05/10/2024 8:38 PM [facility] Comment:Calculation based on the Chronic Kidney Disease Epidemiology Collaboration (CKD-EPI) equation refit without adjustment for race. BUN/Creatinine Ratio 16.3 LAB CHEMISTRY METHOD 05/10/2024 8:38 PM [facility] Calcium 9.4 8.5 - 10.5 mg/dL LAB CHEMISTRY METHOD 05/10/2024 8:38 PM [facility] AST (SGOT) 20 10 - 42 unit/L LAB CHEMISTRY METHOD 05/10/2024 8:38 PM [facility] ALT (SGPT) 23 10 - 60 unit/L LAB CHEMISTRY METHOD 05/10/2024 8:38 PM [facility] Alkaline Phosphatase 89 42 - 121 unit/L LAB CHEMISTRY METHOD 05/10/2024 8:38 PM [facility] Total Protein 8.0 6.0 - 8.0 g/dL LAB CHEMISTRY METHOD 05/10/2024 8:38 PM [facility] Albumin 3.9 3.2 - 5.0 g/dL LAB CHEMISTRY METHOD 05/10/2024 8:38 PM [facility] Total Bilirubin 0.4 0.0 - 1.4 mg/dL LAB CHEMISTRY METHOD 05/10/2024 8:38 PM [facility] Blood Venous blood specimen / Unknown Venipuncture / Unknown 05/10/2024 7:51 PM EST 05/10/2024 8:00 PM EST us Malachi Martinez MD LAB BLOOD ORDERABLES Final Resu lt [facility] [address] [place] [address], [place] [phone] * Urine Albumin Creatinine Ratio (11/03/2023) [facility] Urine Albumin Creatinine Ratio Abstracted Result [facility] HEALTH MAINTENANCE Final Result * Hepatitis C Screening (11/03/2023) [facility] Hepatitis C Screening Abstracted Result [facility] HEALTH MAINTENANCE Final Result * Hemoglobin A1c (11/03/2023) [facility] Hemoglobin A1C 5.7 <=6.5 % Blood Venous blood specimen / Unknown Result [facility] LAB BLOOD ORDERABLES Carrie l Result * (ABNORMAL) Lipid panel (11/03/2023) [facility] LDL/HDL Ratio 3 0 - 4 Triglycerides 64 0 - 150 mg/dL Cholesterol 236(A) 0 - 200 mg/dL HDL 81 >=40 mg/dL LDL Cholesterol 143(A) 0 - 100 mg/dL Blood Venous blood specimen / Unknown Result [facility] LAB BLOOD ORDERABLES Carrie l Result * Cervical Cancer Screening: HPV (08/19/2023) [facility] Cervical Cancer Screening: HPV Negative, Abstracted Result [facility] HEALTH MAINTENANCE Final Result * Colonoscopy (07/28/2022) [facility] Colonoscopy No Interpretation , Abstracted Anatomical Region Laterality Modality Other Result [facility] HEALTH MAINTENANCE Final Result * SCR MAMMO BI INCL [...] Most Recently Relevant to Health Maintenance Insurance [facility] Care Teams Aviation Safety Equipment Technician Relationship Specialty Start Date End Date Carmel De Souza MD [address] [place] [phone] [facility] - General 02/19/22
[2024-10-24 14:02] LABS: Anion Gap 12 (12-20); Blood Urea Nitrogen 14 mg/dL (9-16); Calcium 9.3 mg/dL (8.4-10.2); Carbon Dioxide 28 mmol/L (22-29); Chloride 106 mmol/L (96-108); Estimated Glomerular Filt Rate > 60; Potassium 4.7 mmol/L (3.3-5.1); Sodium 141 mmol/L (135-145)
[2024-10-28 15:08] LABS: Vitamin D 25-OH, D2 <4 ng/mL; Vitamin D 25-OH, D3 18 ng/mL; Vitamin D 25-OH, Total 18 ng/mL (30-100)
== END 2024-10-24 09:07 | disposition home or self-care (01) ==
LOC: HO.HKASLDS 09:06
PROVIDERS: Visit Provider Nurse Practitioner Family
DX: E87.5 Hyperkalemia (principal); D64.9 Anemia, unspecified; E55.9 Vitamin D deficiency, unspecified
CPT/HCPCS: 36415; 80048; 82306; 83090; 83921

== ENCOUNTER 2024-11-03 08:14 | Outpatient (AMB) | payer OTHER, SELFPAY ==
--- NOTE | 2024-11-03 08:18 | A.OFFVIS_ITS ---
Vital Signs 11/03/24 08:26 Height 5 ft 7 in Weight 206 lb 5.643 oz BMI 32.3 BP 142/80 H Blood Pressure Location Lt brachial Position Sitting Pulse 54 Pulse Source Pulse Oximeter Pulse Oximetry (%) 98 Oxygen Delivery Method Room Air Intake Visit Reasons: 6 Months Intake Note: Patient presents for bilateral hand numbness and Fibromyalgia follow up. Cobol Application Developer Required: Yes Cobol Application Developer Language: Manager Application Development Services: Cobol Application Developer Present Cobol Application Developer Name: Genie [id number] Information Interpreted: non-clinical & clinical Allergies gabapentin Allergy (Intermediate, Verified 11/03/24 08:24) Swelling celecoxib (From Celebrex) Adverse Reaction (Mild, Verified 11/03/24 08:24) Swelling Medication List - Last Reconciled 11/03/24 by Nohemi Ann MD amlodipine 5 mg PO DAILY atorvastatin 40 mg PO DAILY baclofen 5 mg PO BEDTIME blood sugar diagnostic (FreeStyle Lite Strips) As directed cetirizine (All Day Allergy (cetirizine)) 10 mg PO DAILY PRN cholecalciferol (vitamin D3) 1,250 mcg PO QWEEK 12 weeks cyclobenzaprine TAKT 1-2 TABLETS BY MOUTH AT BEDTIME NEEDED FOR A MUSCLE SPASM diclofenac sodium 1% 2 grams topical BID duloxetine 30 mg PO DAILY duloxetine 60 mg PO DAILY famotidine 20 mg PO BID fluticasone propionate 50 mcg/actuation (Allergy Relief (fluticasone)) 1 spray intranasal DAILY hydrochlorothiazide 25 mg PO DAILY hydroxyzine pamoate 25 mg PO BID PRN lancets (FreeStyle Lancets) As directed magnesium oxide 400 mg PO BEDTIME 30 days meclizine 12.5 mg PO BID pantoprazole 40 mg PO DAILY pregabalin 75 mg PO BEDTIME 90 days riboflavin (vitamin B2) 400 mg PO DAILY 30 days sumatriptan succinate 50 - 100 mg orally at onset of headache, may repeat in 2 hrs PRN; max 2 tabs per day or 4 tabs/week (may take with Tylenol) 30 days topiramate 25 mg PO BID trazodone 200 mg PO BEDTIME HPI Comments Details: Patient is a 58 y.o. female with HTN, DM, HLD who is here for follow up of fibromyalgia and polyarticular OA Interval History: Last seen 02/18/2024 with me - On duloxetine 90mg and Cylcobenzaprine - Had multiple complaints: hand numbness and random bruises - Recommended using splint, ordered EMG - Added pregabalin Today - On duloxetine 90mg and Cylcobenzaprine - Splinting did not help - Pregabalin helps with her overall pain Rheumatologic History: Fibromyalgia - Previously tried gabapentin: states that she gets swelling from this - Celebrex: stopped because it cause swelling also Current Rheumatology Medication(s): Duloxetine 90mg daily Cyclobenzaprine 10mg daily Pregabalin 75mg nightly PFS Medical History Bilateral hand numbness Lump of scalp Frequent headaches Gastritis Vertigo Vitamin D deficiency Hypercholesteremia DDD (degenerative disc disease), cervical Obesity Spondylosis Esophageal dysmotility Anxiety ADHD Migraine Diabetes Fibromyalgia HTN (hypertension) Surgical History H/O bariatric surgery Family History Mother Arthritis Father Arthritis Diabetes Social History Alcohol intake: former Patient Tobacco Use Status: Former Tobacco user Review of Systems Const Details: Review of Systems Constitutional: Denies fever, chills, weight loss ENT: Denies vision changes, eye pain or eye redness, dental caries, dry mouth GI: Denies nausea, vomiting, diarrhea, abdominal pain, change in BM Pulm: Denies SOB, MCNEAL, hemoptysis, wheezing Cards: Denies chest pain, palpitations Skin: Denies Raynaud's, rash, nail changes, photosensitivity, HAND CLOTH EXAMINER: Denies headaches, weakness, paresthesias, recurrent falls MSK: as per HPI All other systems reviewed and are unremarkable except noted above Physical Exam Exam Exam: Vital signs reviewed Physical Examination CONSTITUITIONAL Patient alert and cooperative. Well appearing and in no apparent painful distress MSK Hands * Right Hand: Able to make a fist. No swelling or tenderness to palpation of these joints. * Left Hand: Able to make a fist. No swelling or tenderness to palpation of these joints. Wrists * Right Wrist: Full ROM. 70 degrees of wrist flexion, 80 degrees of wrist extension. No swelling or TTP * Left Wrist: Full ROM. 70 degrees of wrist flexion, 80 degrees of wrist extension. No swelling or TTP Elbows * Right Elbow: Full ROM. No swelling or TTP. No TTP of the medial and lateral epicondyles * Left Elbow: Full ROM. No swelling or TTP. No TTP of the medial and lateral epicondyles Shoulders * Right shoulder: Full ROM. No swelling noted. No TTP of the AC joint, subacromial bursa or posterior shoulder * Left shoulder: Full ROM. No swelling noted. No TTP of the AC joint, subacromial bursa or posterior shoulder Knees * Right knee: Full ROM. No swelling noted. No TTP of the knee joint lie or pes anserine bursa * Left knee: Full ROM. No swelling noted. No TTP of the knee joint lie or pes anserine bursa. * Crepitations felt bilaterally Ankles * Right ankle: Good ankle dorsiflexion and plantar flexion. No swelling. No TTP of the ankle joint * Left ankle: Good ankle dorsiflexion and plantar flexion. No swelling. No TTP of the ankle joint Feet * Right foot: Negative squeeze test * Left foot: Negative squeeze test Tender points? * No tenderness to palpation of the bilateral trapezius, supraspinatus, anterior costochondral junctions, bilateral suboccipital muscle insertions SKIN No rashes Vital Signs: Last Vital Signs Pulse 54 11/03/24 08:26 BP 142/80 H 11/03/24 08:26 Pulse Ox 98 11/03/24 08:26 Oxygen Delivery Method Room Air 11/03/24 08:26 BMI result Body Mass Index 32.3 Results Reviewed Results Reviewed: EMG 03/2024 FINDINGS: All motor and sensory nerves tested showed normal latencies, amplitudes and conduction velocities. Concentric needle EMG was performed in selected muscles of the bilateral upper extremities. Study did not reveal signs of electric abnormalities as shown in the table above. IMPRESSION: 1. This is a normal study. 2. There is no electrodiagnostic evidence for median neuropathy, ulnar neuropathy, brachial plexopathy, or cervical radiculopathy. Assessment & Plan Assessment & Plan (1) Bilateral hand numbness: Code(s): R20.0 - Anesthesia of skin Category: Medical Plan: #Bilateral Hand Numbness Patient is a 58 y.o. female with polyaticular OA and fibromyalgia. History and exam is consistent with bilateral CTS Discussed therapeutic options: 1. Bilateral splinting + Pregabalin, 2. Corticosteroid injection, 3. Surgery Splinting did not help Plan - US guided steroid injection - Pregabalin 75mg nightly - RTC 6 months (2) Fibromyalgia: Code(s): M79.7 - Fibromyalgia Category: Medical Plan: #Fibromyalgia A bit improved on the pregabalin Plan - Continue cyclobenzaprine 5-10mg nightly - Continue duloxetine 90mg daily - Pregabalin 75mg nightly - Encourage stretching and structured exercise Plan I spent 25 minutes reviewing the record and labs, seeing the patient, discussing the treatment plan and documenting in the medical record Orders: Orders US Guided Inj Carpal Tunnel LT Today G56.00 - Carpal tunnel syndrome, unspecified upper limb Medications: Refilled cyclobenzaprine TAKT 1-2 TABLETS BY MOUTH AT BEDTIME NEEDED FOR A MUSCLE SPASM 60 tabs 3RF pregabalin 75 mg PO BEDTIME 90 caps 1RF 90 days M79.7 - Fibromyalgia, R20.0 - Anesthesia of skin diclofenac sodium 1% 2 grams topical BID 100 grams 4RF M17.0 - Bilateral primary osteoarthritis of knee, M76.61 - Achilles tendinitis, right leg Discontinued baclofen Discontinued Reason: Duplicate 5 mg PO BEDTIME 30 tabs 0RF Coding Level of Care Code Est Pt Level 3 (20364) Diagnoses Bilateral hand numbness R20.0 Fibromyalgia M79.7
[2024-11-03 08:26] VITALS: BP 142/80; PULSE 54; O2SAT 98; BMI 32.3
== END 2024-11-03 08:56 | disposition home or self-care (01) ==
LOC: HO.RHES 08:14
PROVIDERS: PCP Internal Medicine; Visit Provider Student in an Organized Health Care Education/Training Program
DX: R20.0 Anesthesia of skin (principal); M79.7 Fibromyalgia
CPT/HCPCS: 99213

== ENCOUNTER → 2024-11-03 08:14 | Outpatient (BNVA) | payer OTHER, SELFPAY | PROVIDERS: PCP Internal Medicine; Visit Provider Student in an Organized Health Care Education/Training Program | DX: G56.03 Carpal tunnel syndrome, bilateral upper limbs (principal); R20.0 Anesthesia of skin; M79.7 Fibromyalgia; M15.9 Polyosteoarthritis, unspecified | CPT/HCPCS: 99212 ==

== ENCOUNTER 2024-12-02 12:04 | Outpatient (REF) | payer OTHER, SELFPAY ==
--- OUTSIDE RECORDS SUMMARY | 2025-01-17 14:51 | XMS_ITS | Clinical Summary ---
Author Organization [facility] Address [address] [place] [address] Phone Care Team Providers Care Sales Apprentice Name Role Phone Carmel De Souza MD Primary Care Provider [phone] Allergies Active Allergy Reactions Criticality Noted Date Comments Gabapentin Swelling 07/01/2019 Ibuprofen 05/10/2024 Medications magnesium oxide-Mg AA chelate (Magnesium, oxide/AA chelate,) 300 mg capsule Take 1 capsule by mouth 1 (one) time each day. 10/30/19 24 Active hydrOXYzine pamoate (VISTARIL) 25 mg capsule TOME 1C P POR V A ORAL 2VECES AL D A CUANDO SEA NECESARIO PARA ANSIEDAD/PARA DORMIR 03/26/19 24 Active meclizine (ANTIVERT) 12.5 mg tablet TAKE 1 TABLET BY MOUTH 2 TIMES DAILY NEEDED 12/01/19 24 Active SUMAtriptan (IMITREX) 50 mg tablet TAKE 1 TABLET AT ONSET OF MIGRAINE, MAY REPEAT AFTER 2 HOURS IF NEEDED. Active ursodioL (ACTIGALL) 300 mg capsule Take 2 capsules (600 mg total) by mouth. 10/09/19 22 Active famotidine (PEPCID) 20 mg tablet TAKE 1 TABLET BY MOUTH 2 TIMES DAILY NEEDED FOR HEARTBURN. 180 tablet 3 02/12/20 24 Active cetirizine (ZyrTEC) 10 mg tablet Take 1 tablet (10 mg total) by mouth 1 (one) time each day. 90 tablet 3 03/27/19 25 Active hydroCHLOROthiaz desiree (HYDRODIURIL) 25 mg tabletIndication s:Essential (primary) hypertension Take 1 tablet (25 mg total) by mouth 1 (one) time each day. 90 tablet 3 05/13/19 25 Active topiramate (TOPAMAX) 25 mg tablet TOME CRAIG TABLETA DOS VECES AL ANA 60 tablet 5 05/13/19 25 Active tamsulosin (FLOMAX) 0.4 mg 24 hr capsule Take 1 capsule (0.4 mg total) by mouth 1 (one) time each day. Capsules should be taken 30 minutes following the same meal each day. 30 each 05/19/19 25 2025 Active pantoprazole (PROTONIX) 40 mg EC tablet Take 1 tablet (40 mg total) by mouth 1 (one) time each day before breakfast. Do not crush, chew, or split. 90 each 3 07/07/19 25 2025 Active atorvastatin (LIPITOR) 40 mg tablet TOME CRAIG TABLETA TODOS [place] MARIE AL ACOSTARSE 90 tablet 1 07/08/19 25 Active cyclobenzaprine (FLEXERIL) 10 mg tabletIndication s:Fibromyalgia,P ain in right shoulder TAKE 1 TABLET BY MOUTH 2 TIMES DAILY NEEDED FOR MUSCLE SPASMS. 60 tablet 1 08/04/19 25 Active FreeStyle Lancets 28 gauge lancetsIndicatio ns:Type 2 diabetes mellitus with hyperglycemia (CMS/HCC V24, CMS/HCC V28) USE ANGELICA LO INDICADO DOS VECES AL ANA 100 each 5 08/06/19 25 Active fluticasone propionate (FLONASE) 50 mcg/actuation nasal spray Administer 2 sprays into each nostril 1 (one) time each day. 48 mL 1 08/12/19 25 Active blood sugar diagnostic (FreeStyle Lite Strips) test stripIndications :Type 2 diabetes mellitus with hyperglycemia (CMS/HCC V24, CMS/HCC V28) USE TO TEST BLOOD SUGARS TWICE DAILY 100 strip 5 09/13/19 25 Active amLODIPine (NORVASC) 5 mg tablet TAKE 1 TABLET BY MOUTH 1 TIME EACH DAY. 90 tablet 1 01/05/20 25 Active pregabalin (LYRICA) 75 mg capsule Take 1 capsule (75 mg total) by mouth 1 (one) time each day. 01/08/20 25 Active riboflavin (VITAMIN B2) 400 mg tablet Take 1 tablet (400 mg total) by mouth 1 (one) time each day. 12/28/19 Active DULoxetine (CYMBALTA) [address] capsule Take 1 capsule (30 mg total) by mouth 1 (one) time each day. Do not crush or chew. Active DULoxetine (CYMBALTA) [address] capsule Take 1 capsule (60 mg total) by mouth 1 (one) time each day. Do not crush or chew. Active amLODIPine (NORVASC) 5 mg tablet Take 1 tablet (5 mg total) by mouth 1 (one) time each day. 90 tablet 1 07/09/19 25 2024 Discontinued celecoxib (CeleBREX) 200 mg capsule Take 1 capsule (200 mg total) by mouth 1 (one) time each day. 30 each 10/13/19 25 2024 Discontinued(S top Taking at Discharge) DULoxetine (CYMBALTA) [address] capsule Take 1 capsule (30 mg total) by mouth 1 (one) time each day. 90 capsule 3 10/18/19 25 2024 Discontinued(D ose adjustment) DULoxetine (CYMBALTA) [address] capsule Take 1 capsule (60 mg total) by mouth 1 (one) time each day. 90 capsule 3 12/08/19 25 2024 Discontinued(D ose adjustment) Active Problems Problem Noted Date Diagnosed Date Chest pain 01/10/2025 Right kidney stone 05/18/2024 Esophageal dysmotility 02/03/2024 Type 2 diabetes mellitus wit hout complication, without long-term current use of insulin ([facility] V24, [facility] V28) 12/22/2022 COVID 08/31/2021 Binge eating disorder 08/06/2021 Overview (02/03/2024): Dr. Elvia Holden- psychiatry Spondylosis of lumbar region without myelopathy or radiculopathy 09/27/2020 Uncontrolled type 2 diabetes mellitus with hyperglycemia ([facility] V24, [facility] V28) 09/19/2020 Attention deficit hyperactivity disorder (ADHD) 09/14/2020 Primary osteoarthritis of both knees 05/10/2018 DDD (degenerative disc disease), cervical 01/11/ 2018 Fibromyalgia 03/26/2017 Overview (02/03/2024): Gabapentin stopped due to leg swelling DDD (degenerative disc disease), lumbar 02/18/20 17 Hypercholesterolemia 12/04/2015 Depression 12/04/2015 Overview (02/03/2024): F/u psych Remus Impaired fasting glucose 12/04/2015 HTN (hypertension) 12/04/2015 Vitamin D deficiency 12/04/2015 Migraine 12/04/2015 Vertigo 12/04/2015 Gastritis 12/04/2015 Overview (02/03/2024): Mild / upper endoscopy 2014 Cholelithiasis 12/04/2015 Class 2 severe obesity due t o excess calories with serious comorbidity and body mass index (BMI) of 38.0 to 38.9 in adult Encounters Date Type Department Care Team Description 01/13/2025 Telephone Internal Medicine [facility] [address] [facility] [address] [place] [phone] Carmel De Souza MD 01/10/2025 2:26 PM EDT - 01/11/2025 10:07 AM EDT Hospital Encounter [facility] [address] [place] [phone] Rajinder Guerrero MD Bukalo, Nermina, MD Alam, Aroosa, MD Chest pain, unspecified type (Primary Dx); Other chest pain; Fibromyalgia Discharge Disposition: Home-Health Care [facility] 12/14/2024 9:30 AM EDT Treatment [address] [phone] Isaac Medina, PT Neck pain (Primary Dx) 12/07/2024 10:00 AM EDT Treatment [address] [phone] Dioni So, SYSTEMS INTEGRATION ADVISOR Neck pain (Primary Dx) 12/02/2024 Lab Requisition [facility] [address] [facility] [place] [phone] Donald Pardo PA Pyuria 11/30/2024 8:00 AM EDT Treatment [address] [phone] Dioni So, SYSTEMS INTEGRATION ADVISOR Neck pain (Primary Dx) 11/28/2024 2:00 PM EDT Office Visit Internal Medicine [address] [phone] Carmel De Souza MD Primary hypertension (Primary Dx); Type 2 diabetes mellitus without complication, without long-term current use of insulin (CMS/[facility] V24, [facility] V28); Depression, unspecified depression type; Hypercholesterolemia ; Attention deficit hyperactivity disorder (ADHD), unspecified ADHD type 11/28/2024 10:45 AM EDT Treatment [address] [phone] Isaac Medina, PT Neck pain (Primary Dx) 11/23/2024 12:00 PM EDT Treatment [address] [phone] Dioni So, SYSTEMS INTEGRATION ADVISOR Neck pain (Primary Dx) 11/11/2024 8:30 AM EDT Evaluation [address] [phone] Isaac Medina, PT Neck pain 10/24/2024 Telephone Gastroenterology [address] [phone] Beth Madrigal NP from Last 3 Months Immunizations Immunization Administration Dates Next Due Influenza Quadravalent, MDCK [...] GI ENDOSCOPY/EXAM UPPER GASTROINTESTINAL ENDOSCOPY 11/27/2016 PROCEDURE: WI UPPER GI ENDOSCOPY PERFORMED; COMMENT: normal ESOPHAGOGASTRODUODENOSCOPY 11/21/2020 PROCEDURE: WI EGD TRANSORAL BIOPSY SINGLE/MULTIPLE; COMMENT: bilious fluid [...] Uncontrolled type 2 diabetes mellitus with hyperglycemia ([facility] V24, [facility] V28) 09/19/2020 DX:Uncontrolled type 2 diabe charles mellitus with hyperglycemia ([facility]) Fibromyalgia DX:Fibromyalgia Esophageal dysmotility DX:Esopha geal dysmotility [...] 39.0 to 39.9 in adult ([facility]) DDD (degenerative disc disea se), cervical 03/26/2017 [...] drink = 0.6 oz pur e alcohol) Interpersonal Safety Answer Date Record ed Physical Abuse Unrecognized value 01/10/2025 Verbal Abuse Unrecognized value 01/10/2025 Comments Unknown Sex and Gender Information Value Date Recorded Sex Assigned at Not on file Legal Sex Female 1:00 PM EST Gender Identity Not on file Sexual Orientation Not on file Obstetrics History Last Filed Vital Signs Vital Sign Reading Time Taken Comments Blood Pressure 159/79 01/11/2025 8:11 AM EDT Pulse 62 01/11/2025 7:17 AM EDT Temperature 36.8 C (98.2 F) 01/11/2025 7:17 AM EDT Respiratory Rate 16 01/11/2025 7:17 AM EDT Oxygen Saturation 100% 01/11/2025 7:17 AM EDT Inhaled Oxygen Concentration - - Weight 92.1 kg (203 lb 0.7 oz) 01/11/2025 8:11 A M EDT Height 170.2 cm (5' 7.01 ) 01/11/2025 8:11 AM ED T Body Mass Index 31.79 01/11/2025 8:11 AM EDT Plan of Treatment Upcoming Encounters Date Type Department Care Team (Late st Contact Info) Description 01/17/2025 4:00 PM EST Office Visit Internal Medicine - [place] [address] [facility] [address] [place] [phone] John Celestin MD [address] [place] [phone] 02/13/2025 9:30 AM EST Office Visit Internal Medicine - [place] [address] [facility] [address] [place] [phone] Luiz Barron NP 175 [facility] [address] [place] [address] 02/27/2025 9:30 AM EST Office Visit General Surgery - [place] [address] [facility] [address] [place] [phone] Roberto Ness MD [address] [place] [phone] 05/04/2025 9:45 AM EST Office Visit Internal Medicine - [address] [place] [phone] Carmel De Souza MD [address] [place] [phone] 07/18/2025 9:15 AM EDT Office Visit Bariatric Surgery - [place] [address] [facility] [address] [place] [phone] Julio Gaines MD [address] [place] [phone] Health Maintenance Due Date Last Done Comments Diabetes: Annual Foot Exam 1976 Diabetes: Annual Retina Eye Exam 1976 Hepatitis B Vaccines (1 of 3 - 19+ 3-dose series) 1985 Pneumococcal Vaccine: 50+ Years (1 of 2 - PCV) 1985 RSV Immunization Adult Patients (1 - Risk 50-74 years 1-dose series) 2016 Zoster Vaccines (1 of 2) 2016 Breast [...] exists Diabetes: Annual GFR (Glomerular Filtration Rate) 01/11/2026 01/11/2025, 01/10/2025, 05/10/2024, Additional history exists Hypertension/CHF/CAD Annual BMP Blood Test 01/11/2026 01/11/2025, 01/10/2025, 05/10/2024, Additional history exists DTaP,Tdap,and Td Vaccines (2 - Td or Tdap) 02/11/2027 02/11/2017 Cervical Cancer Screening: HPV 08/18/2028 08/19/2023 Cholesterol Screening (Lipid Panel) 01/11/2030 01/11/2025, 11/03/2023, 11/03/2023 Colorectal Cancer Screening: Colonoscopy Discontinued [...] Procedure Name Priority Date/Time Associated Diagnosis Comments ECG ANNOTATED 01/12/2025 TRANSTHORACIC ECHOCARDIOGRAM (TTE) COMPLETE Routine 01/11/2025 8:11 AM EDT Other chest pain CBC WITH AUTO DIFFERENTIAL Routine 01/11/2025 5:48 AM EDT LIPID PANEL WITH REFLEX TO DIRECT LDL Routine 01/11/2025 5:48 AM EDT TROPONIN I HIGH SENSITIVITY Routine 01/11/2025 5:48 AM EDT CBC AND DIFFERENTIAL Routine 01/11/2025 5:48 AM EDT BASIC METABOLIC PANEL Routine 01/11/2025 5:48 AM EDT ECG 12-LEAD Routine 01/11/2025 12:16 AM EDT TROPONIN I HIGH SENSITIVITY STAT 01/11/2025 12:14 AM EDT THYROID STIMULATING HORMONE WITH REFLEX TO FREE T4 AND FREE T3 Routine 01/10/2025 8:14 PM EDT XR CHEST 2 VIEWS STAT 01/10/2025 3:51 PM EDT D-DIMER STAT 01/10/2025 3:35 PM EDT TROPONIN I HIGH SENSITIVITY Timed 01/10/2025 3:35 PM EDT ECG 12-LEAD STAT 01/10/2025 3:32 PM EDT CREATINE KINASE AND CKMB Add-On 01/10/2025 1:57 PM EDT SEDIMENTATION RATE Add-On 01/10/2025 1: 57 PM EDT CBC WITH AUTO DIFFERENTIAL STAT 01/10/2025 1:57 PM EDT B-TYPE NATRIURETIC PEPTIDE STAT 01/10/2025 1:57 PM EDT MAGNESIUM STAT 01/10/2025 1:57 PM EDT LIPASE STAT 01/10/2025 1:57 PM EDT COMPREHENSIVE METABOLIC PANEL STAT 01/10/2025 1:57 PM EDT CBC AND DIFFERENTIAL STAT 01/10/2025 1:57 PM EDT TROPONIN I HIGH SENSITIVITY Timed 01/10/2025 1:57 PM EDT ECG 12-LEAD STAT 01/10/2025 1:53 PM EDT CULTURE URINE Routine 12/02/2024 12:00 AM EDT Pyuria COPPER, SERUM Routine 11/30/2024 8:36 AM EDT Postoperative intestinal malabsorption FOLATE Routine 11/30/2024 8:36 AM EDT Postoperative intestinal malabsorption IRON AND TIBC Routine 11/30/2024 8:36 AM EDT Postoperative intestinal malabsorption SELENIUM SERUM Routine 11/30/2024 8:36 AM EDT Postoperative intestinal malabsorption VITAMIN A Routine 11/30/2024 8:36 AM EDT Postoperative intestinal malabsorption VITAMIN B1 Routine 11/30/2024 8:36 AM EDT Postoperative intestinal malabsorption VITAMIN B12 Routine 11/30/2024 8:36 AM EDT Postoperative intestinal malabsorption VITAMIN B6 Routine 11/30/2024 8:36 AM EDT Postoperative intestinal malabsorption VITAMIN D 25 HYDROXY Routine 11/30/2024 8:36 AM EDT Postoperative intestinal malabsorption ZINC Routine 11/30/2024 8:36 AM EDT Postoperative intestinal malabsorption HM HEPATITIS C SCREENING Routine 11/03/2023 HM URINE ALBUMIN CREATININE RATIO Routine 11/03/2023 HEMOGLOBIN A1C Routine 11/03/2023 HM HPV Routine 08/19/2023 HM COLONOSCOPY Routine 07/28/2022 SCR MAMMO BI INCL CAD Routine 03/31/2018 10:46 AM EST Encounter for screening mammogram for malignant neoplasm of breast from Last 3 Months or Most Recently Relevant to Health Maintenance Results * ECG-Annotated (01/12/2025) us Provider Onbase MD ECG ORDERABLES Final Result * (ABNORMAL) TRANSTHORACIC ECHOCARDIOGRAM (TTE) COMPLETE (01/11/2025 8:11 AM EDT) Left Atrium Minor [place] 5.1 cm CV PACS Left Atrium Major [place] 5.2 cm CV PACS LA Area Sys (A2C) 19 cm2 CV PACS LA Area Sys (A4C) 19 cm2 CV PACS LA Volume (BP) 55 mL CV PACS RA Area 13.9 cm2 CV PACS RA 2D Volume 29 mL CV PACS AV Mean Gradient 4 mmHg CV PACS Ao VTI 34.9 cm CV PACS AV Peak Lukas 1.4 m/s CV PACS AV Peak Gradient 8 mmHg CV PACS AV Area Continuity Equation 2.3 cm2 CV PACS AV Area Peak Velocity 2.4 cm2 CV PACS Aortic Sinus Valsalva 3.0 cm CV PACS Ascending Aorta 3.1 cm CV PACS Ejection Fraction (3D) 62 % CV PACS LVOT Stroke Volume 81 mL CV PACS LV Marie Vol 3D 137 mL CV PACS LV Sys Vol 3D 52 mL CV PACS LV Mass 3D 167 g CV PACS IVSD 0.9 0.6 - 0.9 cm CV PACS LVIDD 4.1 3.8 - 5.2 cm CV PACS LVIDS 1.9(A) 2.2 - 3.5 cm CV PACS LVOT Diameter 2.0 cm CV PACS LVOT Mean Lukas 0.7 m/s CV PACS LVOT Mean Grad 2 mmHg CV PACS LVOT Peak VTI 25.8 cm CV PACS LVOT Peak Lukas 1.1 m/s CV PACS LVOT Peak Gradient 5 mmHg CV PACS LVPWD 0.9 0.6 - 0.9 cm CV PACS MV E' Tissue Velocity Lateral 9 cm/s CV PACS MV E' Tissue Velocity Septal 4 cm/s CV PACS GLS -18.8 % CV PACS GLS -24.5 % CV PACS GLS -20.7 % CV PACS GLS -21.3 % CV PACS LVOT Area 3.1 cm2 CV PACS IVC Proximal 1.2 cm CV PACS MR PISA Nyquist Lukas 32 cm/s CV PACS PISA MR Radius 0.60 cm CV PACS MV Mean Gradient 2 mmHg CV PACS MR VTI 184.0 cm CV PACS MV VTI 35.0 cm CV PACS MR PISA Max Velocity 4.4 m/s CV PACS MR Peak Gradient 76 mmHg CV PACS Mitral Valve Max Velocity 1.0 m/s CV PACS MV Peak Gradient 4 mmHg CV PACS MV Deceleration Canadian 4.4 m/s2 CV PACS E Wave Deceleration Time 192 119 - 242 ms CV PACS MV PHT 56 ms CV PACS MV Peak A Lukas 0.77 m/s CV PACS MV Peak E Lukas 0.85 m/s CV PACS PISA MR EROA 0.17 cm2 CV PACS MV Area PHT 3.9 cm2 CV PACS MV Area Continuity Equation 2.3 cm2 CV PACS PISA Regurgitant Volume 31 mL CV PACS PV Acceleration Time 169 ms CV PACS PV Acceleration Time 169 ms CV PACS RV Diastolic Basal Dimension 3.2 2.5 - 4.1 cm CV PACS RV S' 13 cm/s CV PACS TAPSE 25 mm CV PACS TR Peak Velocity 2.41 m/s CV PACS TR Peak Gradient 23 mmHg CV PACS E/E' Ratio Septal 21 CV PACS E/E' Ratio Averaged 15 CV PACS LVOT Stroke Index 40 mL/m2 CV PACS Relative Wall Thickness ratio 0.44 CV PACS LV Mass Index 3D 82 g/m2 CV PACS LVOT:AV VTI Index 0.74 CV PACS FS 54 % CV PACS LV Mass 2D 114 g CV PACS Ascending Aorta Index 1.52 cm/m2 CV PACS MV VTI:LVOT VTI ratio 1.4 CV PACS LVOT flow 220 mL/s CV PACS RA 2D Volume Index 14 mL/m2 CV PACS JOVITA Index (VTI) 1.14 cm2/m2 CV PACS JOVITA Index (Pk Lukas) 1.18 cm2/m2 CV PACS LVIDD Index 2.01 cm/m2 CV PACS LVIDS Index 0.93 cm/m2 CV PACS LV EDV Index (3D) 67 mL/m2 CV PACS LV ESV Index (3D) 25 mL/m2 CV PACS AV Velocity Ratio 0.79 CV PACS E/A Ratio 1.1 CV PACS E/E' Ratio Lateral 9 CV PACS LA Volume Index (BP) 27 mL/m2 CV PACS LV Mass Index 2D 56 g/m2 CV PACS BSA 2.09 m2 CV PACS Right Ventricular Peak Systolic Pressure 31 mmHg CV PACS Est. RA Pressure 8 mmHg CV PACS Anatomical Region Laterality Modality Ultrasound Narrative 01/11/2025 9:01 AM EDT There is normal biventricular size and systolic function. There is normal left ventricular regional wall motion with an ejection fraction of 55 to 60%. There is normal peak global longitudinal strain. There is no hemodynamically significant valve disease. Minor valvular abnormalities as below. There is normal pulmonary artery systolic pressure. Left Ventricle Left ventricle cavity size is normal. Wall thickness is normal. Systolic function is normal with an ejection fraction of 55-60%. There are no regional LV wall motion abnormalities. Indeterminate diastolic function. Global longitudinal strain is normal at -21.3%. Right Ventricle Right ventricle cavity appears normal. Systolic function is normal. Left Atrium Left atrium cavity size is normal. Right Atrium Right atrium cavity is normal. IVC/SVC RA pressures is estimated to be 8 mmHg (IVC diameter <21 mm and decreases <50% during inspiration). Mitral Valve The leaflets are mildly thickened. There is annular calcification. There is mild regurgitation. There is no evidence of mitral valve stenosis. Tricuspid Valve Tricuspid valve structure is normal. There is trace to mild regurgitation. There is no evidence of tricuspid valve stenosis. The right ventricular systolic pressure is normal. Estimated RA pressure is 8 mmHg. The RVSP is estimated at 31 mmHg. Aortic Valve The aortic valve is trileaflet. The leaflets are mildly thickened. There is trace regurgitation. There is no evidence of aortic valve stenosis. Pulmonic Valve Pulmonic valve structure is normal. There is trace pulmonic valve regurgitation. There is no evidence of pulmonic valve stenosis. Ascending Aorta The aorta appears normal in size. Transverse aorta not well visualized. Pericardium Pericardium appears normal. There is no pericardial effusion. Study Details Overall the study quality was adequate. Additional technique includes myocardial strain. Loretta LEDEZMA CV ECHO PROCEDURES Final Result * Troponin I high sensitivity (01/11/2025 5:48 AM EDT) Only the most recent of4 resultswithin the time period is included. Pathologist [facility] High Sensitivity Troponin I 20 <=54 ng/L LAB CHEMISTRY METHOD 01/11/2025 6:48 AM EDT [facility] Blood Venous blood specimen / Unknown Venipuncture / Unknown 01/11/2025 5:48 AM EDT 01/11/2025 6:15 AM EDT Narrative [facility] - 01/11/2025 6:48 AM EDT High levels of biotin in samples may falsely decrease hsTroponin values. Use caution when interpreting hsTroponin results in patients taking biotin who exhibit renal impairment (eGFR <60) or in patients taking more than 20 mg/day of biotin. us Loretta LEDEZMA LAB BLOOD ORDERABLES Final Resu lt [facility] [address] [place] [address], [place] [phone] * (ABNORMAL) Lipid panel with reflex to direct LDL (01/11/2025 5:48 AM EDT) Cholesterol 236(H) 0 - 200 mg/dL LAB CHEMISTRY METHOD 01/11/2025 7:40 AM EDT [facility] Triglycerides 92 0 - 150 mg/dL LAB CHEMISTRY METHOD 01/11/2025 7:40 AM EDT [facility] HDL 78 >=40 mg/dL LAB CHEMISTRY METHOD 01/11/2025 7:40 AM EDT [facility] LDL Calculated 140(H) 0 - 100 mg/dL LAB CHEMISTRY METHOD 01/11/2025 7:40 AM EDT [facility] Comment:Estimated LDL Calcul ated using equation: Total cholesterol - HDL cholesterol - (Triglycerides/5) VLDL Cholesterol Skip 18.4 mg/dL LAB CHEMISTRY METHOD 01/11/2025 7:40 AM EDT [facility] Non HDL Chol. (LDL+VLDL) 158(H) <145 mg/dL LAB CHEMISTRY METHOD 01/11/2025 7:40 AM EDT [facility] Chol/HDL Ratio 3.0 0.0 - 4.4 LAB CHEMISTRY METHOD 01/11/2025 7:40 AM EDT [facility] Blood Venous blood specimen / Unknown Venipuncture / Unknown 01/11/2025 5:48 AM EDT 01/11/2025 6:15 AM EDT Loretta LEDEZMA LAB BLOOD ORDERABLES Final Resu lt [facility] [address] [place] [address], [place] [phone] * (ABNORMAL) CBC auto differential (01/11/2025 5:48 AM EDT) Only the most recent of2 resultswithin the time period is included. WBC 3.6(L) 4.8 - 10.8 K/mcL LAB HEMETOLOGY METHOD 01/11/2025 6:35 AM EDT [facility] RBC 3.80 3.80 - 4.80 M/mcL LAB HEMETOLOGY METHOD 01/11/2025 6:35 AM [facility] Hemoglobin 11.5 11.5 - 16.0 g/dL LAB HEMETOLOGY METHOD 01/11/2025 6:35 AM [facility] Hematocrit 34.7(L) 35.0 - 47.0 % LAB HEMETOLOGY METHOD 01/11/2025 6:35 AM [facility] MCV 91.3 79.0 - 98.0 FL LAB HEMETOLOGY METHOD 01/11/2025 6:35 AM [facility] MCH 30.3 27.0 - 32.0 pcg LAB HEMETOLOGY METHOD 01/11/2025 6:35 AM [facility] MCHC 33.1 32.0 - 37.0 g/dL LAB HEMETOLOGY METHOD 01/11/2025 6:35 AM [facility] RDW 12.6 11.0 - 15.0 % LAB HEMETOLOGY METHOD 01/11/2025 6:35 AM [facility] Platelets 286 130 - 400 K/mcL LAB HEMETOLOGY METHOD 01/11/2025 6:35 AM [facility] MPV 10.4 7.0 - 11.0 FL LAB HEMETOLOGY METHOD 01/11/2025 6:35 AM EDT [facility] NRBC 0.0 <1.0 % LAB HEMETOLOGY METHOD 01/11/2025 6:35 AM [facility] NRBC Absolute 0.00 <0.10 K/mcL LAB HEMETOLOGY METHOD 01/11/2025 6:35 AM [facility] Neutrophils Relative 27.8 % LAB HEMETOLOGY METHOD 01/11/2025 6:35 AM [facility] Lymphocytes Relative 61.1 % LAB HEMETOLOGY METHOD 01/11/2025 6:35 AM [facility] Monocytes Relative 8.6 % LAB HEMETOLOGY METHOD 01/11/2025 6:35 AM [facility] Eosinophils Relative 1.4 % LAB HEMETOLOGY METHOD 01/11/2025 6:35 AM [facility] Basophils Relative 1.1 % LAB HEMETOLOGY METHOD 01/11/2025 6:35 AM [facility] Immature Granulocytes Relative 0.0 % LAB HEMETOLOGY METHOD 01/11/2025 6:35 AM [facility] Neutrophils Absolute 1.00(L) 1.50 - 7.00 K/mcL LAB HEMETOLOGY METHOD 01/11/2025 6:35 AM [facility] Lymphocytes Absolute 2.20 1.00 - 5.00 K/mcL LAB HEMETOLOGY METHOD 01/11/2025 6:35 AM [facility] Monocytes Absolute 0.31 0.20 - 1.00 K/mcL LAB HEMETOLOGY METHOD 01/11/2025 6:35 AM [facility] Eosinophils Absolute 0.05 0.00 - 0.50 K/mcL LAB HEMETOLOGY METHOD 01/11/2025 6:35 AM [facility] Basophils Absolute 0.04 0.00 - 0.20 K/mcL LAB HEMETOLOGY METHOD 01/11[facility]25 [facility] Immature Granulocytes Absolute 0.00 0.00 - 0.03 K/mcL LAB HEMETOLOGY METHOD 01/11/2025 6:35 AM [facility] Blood Venous blood specimen / Unknown Venipuncture / Unknown 01/11/2025 5:48 AM EDT 01/11/2025 6:15 AM EDT us Loretta LEDEZMA LAB BLOOD ORDERABLES Final Resu lt [facility] [address] [place] [address], [place] [phone] * Basic metabolic panel (01/11/2025 5:48 AM EDT) Sodium 137 133 - 145 mmol/L LAB CHEMISTRY METHOD 01/11/2025 7:36 AM [facility] Potassium 4.4 3.5 - 5.5 mmol/L LAB CHEMISTRY METHOD 01/11/2025 7:36 AM [facility] Chloride 105 96 - 110 mmol/L LAB CHEMISTRY METHOD 01/11/2025 7:36 AM [facility] CO2 29 21 - 32 mmol/L LAB CHEMISTRY METHOD 01/11/2025 7:36 AM [facility] Anion Gap 3 3 - 11 LAB CHEMISTRY METHOD 01/11/2025 7:36 AM [facility] Glucose 95 70 - 100 mg/dL LAB CHEMISTRY METHOD 01/11/2025 7:36 AM [facility] BUN 15 5 - 25 mg/dL LAB CHEMISTRY METHOD 01/11/2025 7:36 AM [facility] Creatinine 0.74 0.50 - 1.10 mg/dL LAB CHEMISTRY METHOD 01/11/2025 7:36 AM [facility] eGFR 94 >=60 mL/min/1. 73m2 LAB CHEMISTRY METHOD 01/11/2025 7:36 AM EDT [facility] Comment:Calculation based on the Chronic Kidney Disease Epidemiology Collaboration (CKD-EPI) equation refit without adjustment for race. BUN/Creatinine Ratio 20.3 LAB CHEMISTRY METHOD 01/11/2025 7:36 AM EDT [facility] Calcium 9.3 8.5 - 10.5 mg/dL LAB CHEMISTRY METHOD 01/11/2025 7:36 AM EDT [facility] Blood Venous blood specimen / Unknown Venipuncture / Unknown 01/11/2025 5:48 AM EDT 01/11/2025 6:15 AM EDT us Hattie Dillon MD LAB BLOOD ORDERABLES Final Res ult Performing Organization Address City/[facility]/ZIP Co de Phone Number [facility] [address] [place] [address], [place] [phone] * ECG 12 lead (01/11/2025 12:16 AM EDT) Only the most recent of3 resultswithin the time period is included. Ventricular Rate ECG 50 BPM GEMUSE Atrial Rate 50 BPM GEMUSE P-R Interval 174 ms GEMUSE QRS Duration 86 ms GEMUSE Q-T Interval 444 ms GEMUSE QTc 404 ms GEMUSE P Wave [place] 58 degrees GEMUSE R [place] 23 degrees GEMUSE T [place] 36 degrees GEMUSE ECG Interpretation Sinus bradycardia Otherwise normal ECG When compared with ECG of 10-JAN-2025 15:32, No significant change was found Confirmed by MD NURYS, MATTHEW ([id number]) on 01/11/2025 8:41:05 AM GEMUSE 01/11/2025 12:1 6 AM EDT 01/11/2025 8:41 AM EDT us Hattie Dillon MD ECG ORDERABLES Final Result Performing Organization Address City/[facility]/ZIP Co de Phone Number GEMUSE * Thyroid stimulating hormone with reflex to free t4 and free t3 (01/10/2025 8:14 PM EDT) TSH 1.21 0.40 - 4.00 mcIU/mL LAB CHEMISTRY METHOD 01/10/2025 9:07 PM EDT [facility] Blood Venous blood specimen / Unknown Venipuncture / Unknown 01/10/2025 8:14 PM EDT 01/10/2025 8:26 PM EDT Loretta LEDEZMA LAB BLOOD ORDERABLES Final Resu lt [facility] [address] [place] [address], [place] [phone] * XR Chest 2 Views (01/10/2025 3:51 PM EDT) Anatomical Region Laterality Modality Body Radiographic Sujatha ging 01/10/2025 4:32 PM EDT Impressions 01/10/2025 4:33 PM EDT FINDINGS/IMPRESSION: Normal heart size. No consolidation, effusion or congestive heart failure. Degenerative osseous changes and scoliosis. -------- FINAL REPORT -------- Dictated By: Rahat Slade Dictated Date: 01/10/2025 16:32 ET Assigned Physician: Rahat Slade Reviewed and Electronically Signed By: Rahat Slade Signed Date: 01/10/2025 16:33 ET Workstation ID: [id number] Transcribed By: Self Edit Transcribed Date: 01/10/2025 16:32 ET Narrative 01/10/2025 4:33 PM EDT XR CHEST 2 VIEWS INDICATION: chest pain TECHNIQUE: XR CHEST 2 VIEWS COMPARISON: None Procedure Note Rahat Slade MD - 01/10/2025 XR CHEST 2 VIEWS INDICATION: chest pain TECHNIQUE: XR CHEST 2 VIEWS COMPARISON: None IMPRESSION: FINDINGS/IMPRESSION: Normal heart size. No consolidation, effusion orcongestive heart failure. Degenerative osseous changes and scoliosis. -------- FINAL REPORT -------- Dictated By: Rahat Slade Dictated Date: 01/10/2025 16:32 ET Assigned Physician: Rahat Slade Reviewed and Electronically Signed By: Rahat Slade Signed Date: 01/10/2025 16:33 ET Workstation ID: [id number] Transcribed By: Self Edit Transcribed Date: 01/10/2025 16:32 ET Rajinder Guerrero MD IMG XR PROCEDURES Final Res ult * D-dimer, quantitative (01/10/2025 3:35 PM EDT) D-Dimer, Quant (D-DU) <150 <=230 ng/mL DDU LAB COAGULATION METHOD 01/10/2025 4:05 PM EDT [facility] Blood Venous blood specimen / Unknown Venipuncture / Unknown 01/10/2025 3:35 PM EDT 01/10/2025 3:47 PM EDT Narrative [facility] - 01/10/2025 4:05 PM EDT D-Dimer <230 ng/mL (D-Dimer units) is the threshold for exclusion of DVT/PE. D-Dimer may be elevated in: Critically ill, severely infected, trauma patients, DIC, acute CVA, acute GA, unstable angina, AF, old age, , and smoking. D-Dimer may be decreased with: Initiation of heparin therapy and oral anticoagulants. Rajinder Guerrero MD LAB BLOOD ORDERABLES Final Result [facility] [address] [place] [address], * Sedimentation rate (01/10/2025 1:57 PM EDT) Sed Rate 30 0 - 30 mm/hr LAB HEMETOLOGY METHOD 01/10/2025 6:34 PM EDT [facility] Blood Venous blood specimen / Unknown Venipuncture / Unknown 01/10/2025 1:57 PM EDT 01/10/2025 2:01 PM EDT Loretta LEDEZMA LAB BLOOD ORDERABLES Final Resu lt Performing Organization Address City/[facility]/ZIP Co de Phone Number [facility] [address] [place] [address], [place] [phone] * B-type natriuretic peptide (01/10/2025 1:57 PM EDT) Pathologist [facility] BNP 73 <=100 pcg/mL LAB CHEMISTRY METHOD 01/10/2025 2:35 PM EDT [facility] Blood Venous blood specimen / Unknown Venipuncture / Unknown 01/10/2025 1:57 PM EDT 01/10/2025 2:01 PM EDT Rajinder Guerrero MD LAB BLOOD ORDERABLES Final Result Performing Organization Address [facility]/ZIP Co de Phone Number [facility] [address] [place] [address], [place] [phone] * Magnesium (01/10/2025 1:57 PM EDT) [facility] Magnesium 2.1 1.9 - 2.6 mg/dL LAB CHEMISTRY METHOD 01/10/2025 2:31 PM EDT [facility] Blood Venous blood specimen / Unknown Venipuncture / Unknown 01/10/2025 1:57 PM EDT 01/10/2025 2:01 PM EDT Rajinder Guerrero MD LAB BLOOD ORDERABLES Final Result Performing Organization Address City/[facility]/ZIP Co de Phone Number [facility] [address] [place] [address], [place] [phone] * Lipase (01/10/2025 1:57 PM EDT) Pathologist [facility] Lipase 42 13 - 75 unit/L LAB CHEMISTRY METHOD 01/10/2025 2:31 PM EDT [facility] Blood Venous blood specimen / Unknown Venipuncture / Unknown 01/10/2025 1:57 PM EDT 01/10/2025 2:01 PM EDT Rajinder Guerrero MD LAB BLOOD ORDERABLES Final Result Performing Organization Address [facility]/ZIP Co de Phone Number [facility] [address] [place] [address], [place] [phone] * (ABNORMAL) Creatine kinase and CKMB (01/10/2025 1:57 PM EDT) Pathologist [facility] Total CK 110 22 - 269 unit/L LAB CHEMISTRY METHOD 01/10/2025 7:55 PM EDT [facility] CK-MB <1.0(L) 1.0 - 3.6 ng/mL LAB CHEMISTRY METHOD 01/10/2025 7:55 PM EDT [facility] CK-MB Index <0.0(L) 0.0 - 5.0 LAB CHEMISTRY METHOD 01/10/2025 7:55 PM EDT [facility] Blood Venous blood specimen / Unknown Venipuncture / Unknown 01/10/2025 1:57 PM EDT 01/10/2025 2:01 PM EDT Loretta LEDEZMA LAB BLOOD ORDERABLES Final Resu lt Performing Organization Address City/[facility]/ZIP Co de Phone Number [facility] [address] [place] [address], [place] [phone] * Comprehensive metabolic panel (01/10/2025 1:57 PM EDT) Pathologist [facility] Sodium 138 133 - 145 mmol/L LAB CHEMISTRY METHOD 01/10/2025 2:31 PM EDT [facility] Potassium 4.4 3.5 - 5.5 mmol/L LAB CHEMISTRY METHOD 01/10/2025 2:31 PM EDT [facility] Chloride 108 96 - 110 mmol/L LAB CHEMISTRY METHOD 01/10/2025 2:31 PM [facility] CO2 27 21 - 32 mmol/L LAB CHEMISTRY METHOD 01/10/2025 2:31 PM [facility] Anion Gap 3 3 - 11 LAB CHEMISTRY METHOD 01/10/2025 2:31 PM [facility] Glucose 96 70 - 100 mg/dL LAB CHEMISTRY METHOD 01/10/2025 2:31 PM [facility] BUN 15 5 - 25 mg/dL LAB CHEMISTRY METHOD 01/10/2025 2:31 PM [facility] Creatinine 0.95 0.50 - 1.10 mg/dL LAB CHEMISTRY METHOD 01/10/2025 2:31 PM [facility] eGFR 70 >=60 mL/min/1. 73m2 LAB CHEMISTRY METHOD 01/10/2025 2:31 PM [facility] Comment:Calculation based on the Chronic Kidney Disease Epidemiology Collaboration (CKD-EPI) equation refit without adjustment for race. BUN/Creatinine Ratio 15.8 LAB CHEMISTRY METHOD 01/10/2025 2:31 PM [facility] Calcium 9.8 8.5 - 10.5 mg/dL LAB CHEMISTRY METHOD 01/10/2025 2:31 PM [facility] AST (SGOT) 22 10 - 42 unit/L LAB CHEMISTRY METHOD 01/10/2025 2:31 PM [facility] ALT (SGPT) 32 10 - 60 unit/L LAB CHEMISTRY METHOD 01/10/2025 2:31 PM [facility] Alkaline Phosphatase 75 42 - 121 unit/L LAB CHEMISTRY METHOD 01/10/2025 2:31 PM [facility] Total Protein 7.6 6.0 - 8.0 g/dL LAB CHEMISTRY METHOD 01/10/2025 2:31 PM [facility] Albumin 3.9 3.2 - 5.0 g/dL LAB CHEMISTRY METHOD 01/10/2025 2:31 PM EDT [facility] Total Bilirubin 0.5 0.0 - 1.4 mg/dL LAB CHEMISTRY METHOD 01/10/2025 2:31 PM EDT [facility] Blood Venous blood specimen / Unknown Venipuncture / Unknown 01/10/2025 1:57 PM EDT 01/10/2025 2:01 PM EDT us Rajinder Guerrero MD LAB BLOOD ORDERABLES Final Result [facility] [address] [place] [address], [place] [phone] * (ABNORMAL) Culture urine (12/02/2024 12:00 AM EDT) Culture, Urine >=100,000 CFU/mL Escherichia coli ESBL(A) JACKELYN 12/05/2024 9:33 AM EDT [facility] Comment: THIS ORGANISM IS POSITIVE FOR EXTENDED SPECTRUM BETA-LACTAMASE (ESBL). EXTENDED SPECTRUM BETA-LACTAMASE PRODUCING ORGANISMS DEMONSTRATE DECREASED ACTIVITY WITH PENICILLINS, CEPHALOSPORINS AND AZTREONAM. Edited result: Previously reported as Escherichia coli on 12/04/2024 at 1310 EDT. Urine Urine specimen from urethra / Unknown 12/02/2024 12/02/2024 2:24 PM EDT Narrative [facility] - 12/05/2024 9:33 AM EDT Normal skin/urogenital bam noted Organism Antibiotic Method Susceptibility Escherichia coli ESBL Amoxicillin/Clavulanate JACKELYN >=32 ug/ml: Resistant Escherichia coli ESBL Ampicillin/Sulbactam JACKELYN >=32 ug/ml: Resistant Escherichia coli ESBL Piperacillin/Tazobactam JACKELYN 8 ug/ml: Susceptible Escherichia coli ESBL Cefazolin (Urine) JACKELYN 16 ug/ml: Susceptible Escherichia coli ESBL Cefoxitin JACKELYN 16 ug/ml: Intermediate Escherichia coli ESBL Ceftazidime JACKELYN <=0.5 ug/ml: Susceptible Escherichia coli ESBL Ceftriaxone JACKELYN 0.5 ug/ml: Susceptible Escherichia coli ESBL Cefepime JACKELYN <=0.12 ug/ml: Susceptible Escherichia coli ESBL Meropenem JACKELYN <=0.25 ug/ml: Susceptible Escherichia coli ESBL Amikacin JACKELYN 2 ug/ml: Susceptible Escherichia coli ESBL Gentamicin JACKELYN <=1 ug/ml: Susceptible Escherichia coli ESBL Ciprofloxacin JACKELYN <=0.06 ug/ml: Susceptible Escherichia coli ESBL Levofloxacin JACKELYN <=0.12 ug/ml: Susceptible Escherichia coli ESBL Nitrofurantoin JACKELYN <=16 ug/ml: Susceptible Escherichia coli ESBL Trimethoprim/Sulfa methoxazol e JACKELYN <=20 ug/ml: Susceptible us Donald LEDEZMA LAB MICROBIOLOGY - GENERAL ORDER VIKY Final Result [facility] [address] [place] [address], [place] [phone] * Iron and TIBC (11/30/2024 8:36 AM EDT) Iron 82 40 - 150 mcg/dL LAB CHEMISTRY METHOD 11/30/2024 10:51 AM EDT [facility] TIBC 339 250 - 450 mcg/dL LAB CHEMISTRY METHOD 11/30/2024 10:51 AM EDT [facility] Iron Saturation 24 15 - 50 % LAB CHEMISTRY METHOD 11/30/2024 10:51 AM EDT [facility] Blood Venous blood specimen / Unknown Venipuncture / Unknown 11/30/2024 8:36 AM EDT 11/30/2024 8:36 AM EDT us Julio Gaines MD LAB BLOOD ORDERABLES Final R esult [facility] [address] [place] [address], [place] [phone] * Copper, serum (11/30/2024 8:36 AM EDT) Copper 1287 810 - 1990 ug/L 12/05/2024 9:36 AM EDT [facility] Comment: Copper values may be elevated to twice the normal levels in . Elevated results may be due to sample collected in a non-certified trace element-free tube. This test was developed and the performance characteristics determined by [facility]. It has not been cleared or approved by the FDA. The laboratory is regulated under CLIA as qualified to perform high-complexity testing. This test is used for patient testing purposes. It should not be regarded as investigational or for research. Test performed at [facility], [address], [place] [address] Kelly Saldivar MD, PhD - Transportation Superintendent Blood Venous blood specimen / Unknown Venipuncture / Unknown 11/30/2024 8:36 AM EDT 11/30/2024 8:36 AM EDT us Julio Gaines MD LAB BLOOD ORDERABLES Final R esult [facility] [address] [place] [address] * Zinc (11/30/2024 8:36 AM EDT) [facility] Signature Zinc 69 60 - 130 ug/dL 12/02/2024 11:07 AM EDT [facility] Comment: Elevated results may be due to sample collected in a non-certified trace element-free tube. This test was developed and the performance characteristics determined by [facility]. It has not been cleared or approved by the FDA. The laboratory is regulated under CLIA as qualified to perform high-complexity testing. This test is used for patient testing purposes. It should not be regarded as investigational or for research. Test performed at [facility], [address] , [place] [address] Kelly Saldivar MD, PhD - Transportation Superintendent Blood Venous blood specimen / Unknown Venipuncture / Unknown 11/30/2024 8:36 AM EDT 11/30/2024 8:36 AM EDT us Julio Gaines MD LAB BLOOD ORDERABLES Final R esult Performing Organization Address City/[facility]/ZIP Co de Phone Number [facility] [address] [place] [address] * Vitamin A (11/30/2024 8:36 AM EDT) Vitamin A 45 38 - 106 ug/dL 12/05/2024 6:53 AM EDT [facility] Comment: This test was developed and the performance characteristics determined by [facility]. It has not been cleared or approved by the FDA. The laboratory is regulated under CLIA as qualified to perform high-complexity testing. This test is used for patient testing purposes. It should not be regarded as investigational or for research. Test performed at [facility], [address] , [place] [address] Kelly Saldivar MD, PhD - Transportation Superintendent Blood Venous blood specimen / Unknown Venipuncture / Unknown 11/30/2024 8:36 AM EDT 11/30/2024 8:36 AM EDT us Julio Gaines MD LAB BLOOD ORDERABLES Final R esult Performing Organization Address [facility]/[place] Co de Phone Number [facility] [address] [place] [address] * Selenium serum (11/30/2024 8:36 AM EDT) Selenium 120 63 - 160 mcg/L 12/05/2024 11:49 AM EDT [facility] Comment: This test was developed and its analytical performance characteristics have been determined by [email or web address] [place], [place]. It has not been cleared or approved by the U.S. Food and Drug Administration. This assay has been validated pursuant to the CLIA regulations and is used for clinical purposes. Test Performed by [facility], [email or web address] [place], [address] [place] [address] Umang Armas M.D., Ph.D., Director of Laboratories , CLIA [id number] Blood Venous blood specimen / Unknown Venipuncture / Unknown 11/30/2024 8:36 AM EDT 11/30/2024 8:36 AM EDT Julio Gaines MD LAB BLOOD ORDERABLES Final R esult [facility] [address] [place] [address] * (ABNORMAL) Vitamin D 25 hydroxy (11/30/2024 8:36 AM EDT) Vit D, 25-Hydroxy 29.1(L) 30.0 - 80.0 ng/mL LAB CHEMISTRY METHOD 11/30/2024 11:16 AM EDT [facility] Blood Venous blood specimen / Unknown Venipuncture / Unknown 11/30/2024 8:36 AM EDT 11/30/2024 8:36 AM EDT Julio Gaines MD LAB BLOOD ORDERABLES Final R esult Performing Organization Address City/[facility]/ZIP Co de Phone Number [facility] [address] [place] [address], [place] [phone] * Vitamin B1 (11/30/2024 8:36 AM EDT) [facility] Vitamin B1 Whole Blood 54 38 - 122 ug/L 12/02/2024 12:27 PM EDT [facility] Comment: This test was developed and the performance characteristics determined by [facility]. It has not been cleared or approved by the FDA. The laboratory is regulated under CLIA as qualified to perform high-complexity testing. This test is used for patient testing purposes. It should not be regarded as investigational or for research. Test performed at [facility], [address], [place] [address] Kelly Saldivar MD, PhD - Transportation Superintendent Blood Venous blood specimen / Unknown Venipuncture / Unknown 11/30/2024 8:36 AM EDT 11/30/2024 8:36 AM EDT Julio Gaines MD LAB BLOOD ORDERABLES Final R esult [facility] [address] [place] [address] * Vitamin B6 (11/30/2024 8:36 AM EDT) Vitamin B6 (Pyridoxine) Level 19 5 - 50 ug/L 12/05/2024 11:28 AM EDT [facility] Comment: This test was developed and the performance characteristics determined by [facility]. It has not been cleared or approved by the FDA. The laboratory is regulated under CLIA as qualified to perform high-complexity testing. This test is used for patient testing purposes. It should not be regarded as investigational or for research. Test performed at [facility], [address] [place] [address] Kelly Saldivar MD, PhD - Transportation Superintendent Blood Venous blood specimen / Unknown Venipuncture / Unknown 11/30/2024 8:36 AM EDT 11/30/2024 8:36 AM EDT Julio Gaines MD LAB BLOOD ORDERABLES Final R esult Performing Organization Address City/[facility]/ZIP Co de Phone Number [facility] [address] [place] [address] * (ABNORMAL) Folate (11/30/2024 8:36 AM EDT) Pathologist [facility] Folate >20.0(H) 2.8 - 17.0 ng/ml LAB CHEMISTRY METHOD 11/30/2024 10:51 AM EDT [facility] Blood Venous blood specimen / Unknown Venipuncture / Unknown 11/30/2024 8:36 AM EDT 11/30/2024 8:36 AM EDT Julio Gaines MD LAB BLOOD ORDERABLES Final R esult [facility] [address] [place] [address], [place] [phone] * Vitamin B12 (11/30/2024 8:36 AM EDT) [facility] Vitamin B-12 627 250 - 900 pcg/mL LAB CHEMISTRY METHOD 11/30/2024 10:51 AM EDT [facility] Blood Venous blood specimen / Unknown Venipuncture / Unknown 11/30/2024 8:36 AM EDT 11/30/2024 8:36 AM EDT Julio Gaines MD LAB BLOOD ORDERABLES Final R esult Performing Organization Address City/[facility]/ZIP Co de Phone Number [facility] [address] [place] [address], [place] [phone] * Urine Albumin Creatinine Ratio (11/03/2023) [facility] Urine Albumin Creatinine Ratio Abstracted [facility] Provider HEALTH MAINTENANCE Final Result * Hepatitis C Screening (11/03/2023) [facility] Hepatitis C Screening Abstracted [facility] Provider HEALTH MAINTENANCE Final Result * Hemoglobin A1c (11/03/2023) [facility] Hemoglobin A1C 5.7 <=6.5 % Blood Venous blood specimen / Unknown [facility] Provider LAB BLOOD ORDERABLES Carrie l Result * Cervical Cancer Screening: HPV (08/19/2023) [facility] Cervical Cancer Screening: HPV Negative, Abstracted [facility] Provider HEALTH MAINTENANCE Final Result * Colonoscopy (07/28/2022) [facility] Colonoscopy No Interpretation , Abstracted Anatomical Region Laterality Modality Other us Historical Provider HEALTH MAINTENANCE Final Result * SCR MAMMO [...] or Most Recently Relevant to Health Maintenance Additional Health Concerns Infection Onset Date Last Indicated ESBL 12/02/2024 12/02/2024 Insurance [facility] [employer] Advance Directives * Full Code - Confirmed (Latest Code Status on File) Date Activated Date Inactivated Comments 01/10/2025 7:11 PM 01/11/2025 12:18 PM This code status was ascertained in the following way: Code status discussion: discussion with patient To update the patient's code status, place a code status order. Do not modify or discontinue any currently active code status orders. * Full Code - Default Date Activated Date Inactivated Comments 01/10/2025 6:00 PM 01/10/2025 7:11 PM This is or brooke is used when code status has not been discussed with the patient, or code status is otherwise unknown/unconfirmed To update the patient's code status, place a code status order. Do not modify or discontinue any currently active code status orders. Care Teams Sales Apprentice Relationship Specialty Start Date End Date Carmel De Souza MD [address] [facility] [address] [place] [address] PCP - General 02/19/22
--- OUTSIDE RECORDS SUMMARY | 2025-01-17 14:51 | XMS_ITS | Encounter Summary ---
Author Organization [employer] Address [address] [place] [address] Care Team Providers Care Golf Ball Cover Treater Name Role Phone Carmel De Souza MD Primary Care Provider [phone] Encounter Details Date Type Department Care Team (Late st Contact Info) Description 12/02/2024 Lab Requisition [facility] - Main Lab [address] [facility] [place] [phone] Donald Pardo PA [address] [facility] [address] [place] [address] Pyuria Social History Tobacco Use Types Packs/Day [...] PM EST Office Visit Internal Medicine - [place] [address] [facility] 200 [place] [phone] John Celestin MD [address] [place] [phone] 02/13/2025 9:30 AM EST Office Visit Internal Medicine [facility] [address] [facility] 200 [place] [phone] Luiz Barron NP 175 [facility] [address] [place] [address] 02/27/2025 9:30 AM EST Office Visit General Surgery - [place] [address] [facility] [address] [place] [phone] Roberto Ness MD [address] [place] [phone] 05/04/2025 9:45 AM EST Office Visit Internal Medicine - [place] [address] [facility] 200 [place] [phone] Carmel De Souza MD [address] [place] [phone] 07/18/2025 9:15 AM EDT Office Visit Bariatric Surgery - [place] [address] [place] [address] Julio Gaines MD [address] [place] [phone] documented as of this encounter Procedures Procedure Name Priority Date/Time Associated Diagnosis Comments CULTURE URINE Routine 12/02/2024 12:00 AM EDT Pyuria documented in this encounter Results * (ABNORMAL) Culture urine (12/02/2024 12:00 AM EDT) Culture, Urine >=100,000 CFU/mL Escherichia coli ESBL(A) JACKELYN 12/05/2024 9:33 AM EDT [facility] Comment: THIS ORGANISM IS POSITIVE FOR EXTENDED SPECTRUM BETA-LACTAMASE (ESBL). EXTENDED SPECTRUM BETA-LACTAMASE PRODUCING ORGANISMS DEMONSTRATE DECREASED ACTIVITY WITH PENICILLINS, CEPHALOSPORINS AND AZTREONAM. Edited result: Previously reported as Escherichia coli on 12/04/2024 at 1310 EDT. Urine Urine specimen from urethra / Unknown 12/02/2024 12/02/2024 2:24 PM EDT Narrative [facility] - 12/05/2024 9:33 AM EDT Normal [...] Trimethoprim/Sulfa methoxazol e JACKELYN <=20 ug/ml: Susceptible Donald [facility] MICROBIOLOGY - GENERAL ORDER VIKY Final Result [facility] [address] [place] [address], documented in this encounter Visit Diagnoses Diagnosis Pyuria Other nonspecific finding on examination of urine documented in this encounter Additional Health Concerns Infection Onset Date Last Indicated Resolved Time ESBL 12/02/2024 12/02/2024 documented as of this encounter Care Teams Golf Ball Cover Treater Relationship Specialty Start Date End Date Carmel De Souza MD 175 [facility] 200 [place] [address] PCP - General 02/19/22 documented as of this encounter
--- OUTSIDE RECORDS SUMMARY | 2025-01-17 14:51 | XMS_ITS | Encounter Summary ---
Author Organization [employer] Address [address] [place] [address] Care Team Providers Care Bookkeeping Clerk Name Role Phone Carmel De Souza MD Primary Care Provider [phone] Encounter Details Date Type Department Care Team ([facility] st Contact Info) Description 01/13/2025 Telephone Internal Medicine - [place] [address] [facility] [address] [place] [phone] Carmel De Souza MD [address] [place] [phone] Social History Tobacco Use Types Packs/Day Years [...] 4:00 PM EST Office Visit Internal Medicine [facility] [address] [facility] [address] [place] [address] John Celestin MD [address] [place] [phone] 02/13/2025 9:30 AM EST Office Visit Internal Medicine [facility] [address] [facility] [address] [place] [address] Luiz Barron NP 175 [facility] 200 [place] [address] 02/27/2025 9:30 AM EST Office Visit General Surgery - [place] [facility] [address] [place] [address] Roberto Ness MD [address] [place] [phone] 05/04/2025 9:45 AM EST Office Visit Internal Medicine [facility] [address] [facility] [address] [place] [address] Carmel De Souza MD [address] [place] [phone] 07/18/2025 9:15 AM EDT Office Visit Bariatric Surgery - [place] [address] [place] [phone] Julio Gaines MD [address] [place] [phone] documented as of this encounter Visit Diagnoses Not on filedocumented in this encounter Additional Health Concerns Infection Onset Date Last Indicated Resolved Time ESBL 12/02/2024 12/02/2024 documented as of this encounter Care Teams Bookkeeping Clerk Relationship Specialty Start Date End Date Carmel De Souza MD 175 [facility] 200 [place] [phone] PCP - General 02/19/22 documented as of this encounter
== END 2024-12-02 12:05 | disposition home or self-care (01) ==
LOC: HO.RHESR 12:04
PROVIDERS: Visit Provider Student in an Organized Health Care Education/Training Program
DX: G56.02 Carpal tunnel syndrome, left upper limb (principal)
CPT/HCPCS: 76942

== ENCOUNTER 2024-12-02 15:17 | Outpatient (AMB) | payer OTHER, SELFPAY ==
--- OUTSIDE RECORDS SUMMARY | 2024-11-28 10:45 | XMS_ITS | Encounter Summary ---
Author Organization Daniela [facility] Address [address] [place] [address] Care Team Providers Care Curtain Stitcher Name Role Phone Carmel De Souza MD Primary Care Provider [phone] Reason for Visit * Consultation (Routine) - Authorized Specialty Diagnoses / Procedures Referred By Mera chandler Referred To Contact Physical Therapy Diagnoses Neck pain Carmel De Souza MD 175 [facility] 200 [place] [address] Phone: tel: fax: [facility] [address] [address] Phone: tel: fax: Referral ID Status Reason Start Date Expiration Date Visits Requested Visits Authorized [id number] Authorized Specialty Services Required 10/12/2024 10/12/2025 21 21 Encounter Details Date Type Department Care Team (Late st Contact Info) Description 11/28/2024 10:45 AM EDT Treatment [facility] [address] [address] Isaac Medina, PT Neck pain (Primary Dx) Social History Tobacco Use Types Packs/Day Years Used Date Smoking Tobacco: Former Cigarettes 0.3 9.3 0 1981 - 03/16/1991 Smokeless Tobacco: Never Alcohol Use Standard Drinks/Week Comments No 0 (1 standard drink = 0.6 oz pur e alcohol) Comments Unknown Sex and Gender Information Value Date Recorded Sex Assigned at Not on file Legal Sex Female 1:00 PM EST Gender Identity Not on file Sexual Orientation Not on file documented as of this encounter Functional Status * Are you deaf or do you have serious difficulty hearing? Answer Date of Assessment Author No 05/11/2024 3:13 AM Yakov Mcwilliams RN * Are you blind or do you have serious difficulty seeing, even when wearing glasses? Answer Date of Assessment Author No 05/11/2024 3:13 AM Yakov Mcwilliams RN * Do you have serious difficulty walking or climbing stairs? Answer Date of Assessment Author No 05/11/2024 3:13 AM Yakov Mcwilliams RN * Do you have serious difficulty dressing or bathing? Answer Date of Assessment Author No 05/11/2024 3:13 AM Yakov Mcwilliams RN * Because of a physical, mental, or emotional condition, do you have serious difficulty doing errandsalone such as visiting the doctor? Answer Date of Assessment Author No 05/11/2024 3:13 AM Yakov Mcwilliams RN documented as of this encounter Mental Status * Because of a physical, mental, or emotional condition, do you have serious difficulty concentrating, remembering, or making decisions? (5 years old or older) Answer Entry Date Author No 05/11/2024 3:13 AM Yakov Mcwilliams RN documented in this encounter Progress Notes * Isaac Medina, PT - 11/28/2024 10:45 AM EDT [facility] - Outpatient PHYSICAL THERAPY DAILY TREATMENT NOTE - OP Date: 11/28/2024 Visit Number: 3 Patient Name: Tia Ivy : 1965 Age: 58 y.o. Gender: female Diagnosis: ICD-10-CM ICD-9-CM 1. Neck pain M54.2 723.1 Date of Onset/Surgery: 11/11/2024 Referring Provider: Carmel De Souza MD Insurance: Payor: [facility] [employer] PLAN / Plan: [facility] MEDICAID / Product Type: *No Product type* / Patient Identified by: Isaac Medina, PT Language: Speaks and understands Omani as preferred language with no spanish interpreter required Medications: Current Outpatient Medications on File Prior to Visit Medication Sig Dispense Refill amLODIPine (NORVASC) 5 mg tablet Take 1 tablet (5 mg total) by mouth 1 (one) time each day. 90 tablet 1 atorvastatin (LIPITOR) 40 mg tablet TOME CRAIG TABLETA TODOS LOS MARIE AL ACOSTARSE 90 tablet 1 blood sugar diagnostic (FreeStyle Lite Strips) test strip USE TO TEST BLOOD SUGARS TWICE DAILY 100 strip 5 celecoxib (CeleBREX) 200 mg capsule Take 1 capsule (200 mg total) by mouth 1 (one) time each day. 30 each 0 cetirizine (ZyrTEC) 10 mg tablet Take 1 tablet (10 mg total) by mouth 1 (one) time each day. 90 tablet 3 cyclobenzaprine (FLEXERIL) 10 mg tablet TAKE 1 TABLET BY MOUTH 2 TIMES DAILY NEEDED FOR MUSCLE SPASMS. 60 tablet 1 DULoxetine (CYMBALTA) [address] capsule Take 1 capsule (30 mg total) by mouth 1 (one) time each day.90 capsule 3 famotidine (PEPCID) 20 mg tablet TAKE 1 TABLET BY MOUTH 2 TIMES DAILY NEEDED FOR HEARTBURN. 180 tablet 3 fluticasone propionate (FLONASE) 50 mcg/actuation nasal spray Administer 2 sprays into each nostril1 (one) time each day. 48 mL 1 FreeStyle Lancets 28 gauge lancets USE ANGELICA LO INDICADO DOS VECES AL ANA 100 each 5 hydroCHLOROthiazide (HYDRODIURIL) 25 mg tablet Take 1 tablet (25 mg total) by mouth 1 (one) time each day. 90 tablet 3 hydrOXYzine pamoate (VISTARIL) 25 mg capsule TOME 1C P POR V A ORAL 2VECES AL D A CUANDO SEA NECESARIO PARA ANSIEDAD/PARA DORMIR magnesium oxide-Mg AA chelate (Magnesium, oxide/AA chelate,) 300 mg capsule Take 1 capsule by mouth1 (one) time each day. meclizine (ANTIVERT) 12.5 mg tablet TAKE 1 TABLET BY MOUTH 2 TIMES DAILY NEEDED pantoprazole (PROTONIX) 40 mg EC tablet Take 1 tablet (40 mg total) by mouth 1 (one) time each day before breakfast. Do not crush, chew, or split. 90 each 3 SUMAtriptan (IMITREX) 50 mg tablet TAKE 1 TABLET AT ONSET OF MIGRAINE, MAY REPEAT AFTER 2 HOURS IF NEEDED. tamsulosin (FLOMAX) 0.4 mg 24 hr capsule Take 1 capsule (0.4 mg total) by mouth 1 (one) time each day. Capsules should be taken 30 minutes following the same meal each day. 30 each 0 topiramate (TOPAMAX) 25 mg tablet TOME CRAIG TABLETA DOS VECES AL ANA 60 tablet 5 ursodioL (ACTIGALL) 300 mg capsule Take 2 capsules (600 mg total) by mouth. No current facility-administered medications on file prior to visit. Allergies: is allergic to gabapentin and ibuprofen. Precautions: Fall risk: No SUBJECTIVE Subjective Report: Pt reports continued cervical pain. Chart Reviewed: Yes Pain: Cervical pain 08/23 TREATMENT INTERVENTION: UBE at level 2 x2/2 Instruction, demonstration and pt performed the following therex: Purple t-band B shoulder extension x10 x2 sets Purple t-band face pulls x10 x2 sets Purple t-band B shoulder horizontal abduction x10 x2 sets Seated upper trap stretch with 30 sec hold x3 B Seated levator stretch with 30 sec hold x3 B ASSESSMENT/Response to Treatment Good Pt verbalized understanding of therex as above. No increase in pain after completing above therex Patient Education: Education provided: HEP Education Provided To: Patient utilizing Explanation and Demonstration mode(s) of education Response to Education: Applied Knowledge and Verbal Understanding PLAN POC Development/Review: No Change in the Plan of Care; Participants: Patient Interventions Time Entry: Modalities: Therapeutic procedures: Total Treatment Time: 25 Documentation completed by Isaac Medina PT documented in this encounter Plan of Treatment Upcoming Encounters Date Type Department Care Team (Late st Contact Info) Description 12/07/2024 10:00 AM EDT Treatment [address] [phone] Dioni So, SHEEP SORTER 2024 9:00 AM EDT Treatment [address] [phone] Isaac Medina PT 12/14/2024 9:30 AM EDT Treatment [address] [phone] Isaac Medina, PT 02/13/2025 9:30 AM EST Office Visit Internal Medicine - [place] 175 [facility] 200 [place] [phone] Luiz Barron NP 175 [facility] 200 [place] [address] 02/27/2025 9:30 AM EST Office Visit General Surgery - [place] 175 [facility] 110 [place] [phone] Roberto Ness MD 230 [place] [phone] 05/04/2025 9:45 AM EST Office Visit Internal Medicine - [place] 175 [facility] 200 [place] [phone] Carmel De Souza MD [address] [phone] 07/18/2025 9:15 AM EDT Office Visit Bariatric Surgery - [place] 175 [facility] 120 [place] [phone] Julio Gaines MD 230 [place] [phone] documented as of this encounter Goals Goal Patient Goal Type Associated Problems Recent Progress Patient-Stated? Author PT LTGs General No Isaac Medina, PT Note: Pt will complete morning ADLs without cervical pain Pt will carry 10 lb box x50 ft without pain to simulate laundry carry Pt will be independent with HEP documented as of this encounter Visit Diagnoses Diagnosis Neck pain- Primary Cervicalgia documented in this encounter Care Teams Curtain Stitcher Relationship Specialty Start Date End Date Carmel De Souza MD [address] [phone] PCP - General 02/19/22 documented as of this encounter
--- OUTSIDE RECORDS SUMMARY | 2024-11-28 14:00 | XMS_ITS | Encounter Summary ---
Author Organization [facility] Address [address] [place] [address] Care Team Providers Care Manager Registration Name Role Phone Carmel De Souza MD Primary Care Provider [phone] Reason for Visit * Reason Comments Physical Exam Encounter Details Date Type Department Care Team (Latest Contact Info) Description 11/28/2024 2:00 PM EDT Office Visit Internal Medicine - [place] [address] [place] [phone] Carmel De Souza MD 175 [facility] [address] [place] [address] Primary hypertension (Primary Dx); Type 2 diabetes mellitus without complication, without long-term current use of insulin (CMS/HCC V24, CMS/HCC V28); Depression, unspecified depression type; Hypercholesterolemia; Attention deficit hyperactivity disorder (ADHD), unspecified ADHD type Social History Tobacco Use Types Packs/Day Years [...] on file documented as of this encounter Last Filed Vital Signs Vital Sign Reading Time Taken Comments Blood Pressure 128/64 11/28/2024 1:46 PM EDT Pulse 78 11/28/2024 1:46 PM EDT Temperature - - Respiratory Rate - - Oxygen Saturation 99% 11/28/2024 1:46 PM EDT Inhaled Oxygen Concentration - - Weight 90.7 kg (200 lb) 11/28/2024 1:46 PM EDT Height 170.2 cm (5' 7 ) 11/28/2024 1:46 PM EDT Body Mass Index 31.32 11/28/2024 1:46 PM EDT documented in this encounter Functional Status * Are you [...] documented in this encounter Progress Notes * Carmel De Souza MD - 11/28/2024 2:00 PM EDT CHIEF COMPLAINT: Physical Exam IDENTIFIER: Tia Ivy is a 58 y.o. old female. 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 Patient is concerned about neck pain, was prescribed baclofen, Doing physical therapy ROS: GENERAL: No malaise, significant weight loss or fever NECK: No lumps, goiter, pain or significant neck swelling RESPIRATORY: No cough, wheezing or shortness of breath CARDIOVASCULAR: No chest pain, leg swelling or palpitations GI: No abdominal discomfort, blood in stools or black stools PSYCH: No sleep disturbance, mood disorder or recent psychosocial stressors. PAST MEDICAL HISTORY: Patient Active Problem List Diagnosis Date Noted Right kidney stone 05/18/2024 Esophageal dysmotility 02/03/2024 Class 2 severe obesity due to excess calories with serious comorbidity and body mass index (BMI) of38.0 to 38.9 in adult ([facility] [place], [facility] V28) Type 2 diabetes mellitus without complication, without long-term current use of insulin ([facility] [place], [facility] V28) 12/22/2022 COVID 08/31/2021 Binge eating disorder 08/06/2021 Spondylosis of lumbar region without myelopathy or radiculopathy 09/27/2020 Uncontrolled type 2 diabetes mellitus with hyperglycemia ([facility] [place]24, [facility] V28) 09/19/2020 Attention deficit hyperactivity disorder (ADHD) 09/14/2020 Primary osteoarthritis of both knees 05/10/2018 DDD (degenerative disc disease), cervical 03/26/2017 Fibromyalgia 03/26/2017 DDD (degenerative disc disease), lumbar 02/17/2017 Hypercholesterolemia 12/04/2015 Depression 12/04/2015 Impaired fasting glucose 12/04/2015 HTN (hypertension) 12/04/2015 Vitamin D deficiency 12/04/2015 Migraine 12/04/2015 Vertigo 12/04/2015 Gastritis 12/04/2015 Cholelithiasis 12/04/2015 Past Surgical History: Procedure Laterality Date COLONOSCOPY 2022 PROCEDURE: HISTORICAL COLONOSCOPY; COMMENT: nml ESOPHAGOGASTRODUODENOSCOPY 11/21/2020 PROCEDURE: GA EGD TRANSORAL BIOPSY SINGLE/MULTIPLE; COMMENT: bilious fluid noted otherwise normal, biopsy pending UPPER GASTROINTESTINAL ENDOSCOPY 05/2014 PROCEDURE: UPPER GI ENDOSCOPY/EXAM UPPER GASTROINTESTINAL ENDOSCOPY 11/27/2016 PROCEDURE: GA UPPER GI ENDOSCOPY PERFORMED; COMMENT: normal SOCIAL HISTORY: Social History Tobacco Use Smoking status: Former Current packs/day: 0.00 Average packs/day: 0.3 packs/day for 9.3 years (2.3 ttl pk-yrs) Types: Cigarettes Start date: 1981 Quit date: 03/16/1991 Years since quittin.7 Smokeless tobacco: Never Substance Use Topics Alcohol use: No FAMILY HISTORY: Family History Problem Relation Name Age of Onset Diabetes Father Arthritis Father Cataracts Uncle Cataracts Other Arthritis Mother No Known Problems Daughter No Known Problems Son Depression Brother Other (Other: stomach issues) Sister No Known Problems Daughter No Known Problems Brother No Known Problems Brother No Known Problems Brother Nephrolithiasis Sister No Known Problems Sister No Known Problems Sister No Known Problems Sister No Known Problems Maternal Grandfather No Known Problems Maternal Grandmother No Known Problems Paternal Grandfather No Known Problems Paternal Grandmother No Known Problems Aunt Blindness Neg Hx Glaucoma Neg Hx Macular degeneration Neg Hx Strabismus Neg Hx Breast cancer Neg Hx Family Status Relation Name Status Father Alive Uncle (Not Specified) Other (Not Specified) Mother Alive Daughter Alive Son Alive Brother Alive Sister Alive Daughter Alive Brother Alive Brother Alive Brother Alive Sister Alive Sister Alive Sister Alive Sister Alive MGF (Not Specified) MGM (Not Specified) PGF (Not Specified) PGM (Not Specified) Aunt (Not Specified) Neg Hx (Not Specified) No partnership data on file MEDICATIONS DISCONTINUED/REORDERED: There are no discontinued medications. ACTIVE MEDICATIONS: No outpatient medications have been marked as taking for the 11/28/24 encounter (Office Visit) with Carmel De Souza MD. ALLERGIES: Allergies Allergen Reactions Gabapentin Swelling Ibuprofen PHYSICAL EXAM: Visit Vitals BP 128/64 (BP Location: Left arm, Patient Position: Sitting, BP Cuff Size: Large adult) Pulse 78 Ht 1.702 m (67 ) Wt 90.7 kg (200 lb) SpO2 99% BMI 31.32 kg/m?? Smoking Status Former BSA 2.02 m?? APPEARANCE: Alert and in no acute distress NECK: Neck supple, no adenopathy, thyroid symmetric and of normal size HEART: RRR with normal S1 and S2, no murmurs, no gallops, no JVD appreciated LUNG: clear to auscultation ABDOMEN: Bowel sounds normoactive, no bruits, soft, non-tender, without organomegaly or palpable masses SKIN: Skin color, texture, turgor normal. No rashes or lesions. LABS/IMAGING: Appointment on 07/15/2024 Component Date Value Ref Range Status Helicobacter Pylori Ag 07/15/2024 Not detected Not detected Final Medication and lab orders: No orders of the defined types were placed in this encounter. Other orders: None IMPRESSION: 1. Primary hypertension 2. Type 2 diabetes mellitus without complication, without long-term current use of insulin ([facility], [facility] V28) 3. Depression, unspecified depression type 4. Hypercholesterolemia 5. Attention deficit hyperactivity disorder (ADHD), unspecified ADHD type PLAN: Neck pain--referral to physical therapy, will prescribe Celebrex, she says she cannot tolerate ibuprofen because of GERD, continue baclofen Hypertension - BP at goal, on HCTZ. Denies headasches, blurry vision, dizziness or lightheadedness. Hyperlipidemia--continue atorvastatin, lipids good Obesity - Patient underwent laparoscopic gastric bypass surgery on 10/25/21. Has lost 30lbs since. She describes some increased gassiness with meals. Fibromyalgia - was previously followed by Dr. Peres in [place]. Patient has ongoing diffuse pain without evidence of inflammatory joint disease and there is no change in her pain severity or characteristics. She is noticing worsening pain with colder weather. She is on NSAIDs, muscle relaxants, gabapentin and antidepressants but her pain is not controlled. She tells me that she stopped celebrex as it caused worsening reflux. Migraines - States that her migraines are not as frequent. Patient is currently on topamax 25mg BID,sumatriptan as needed. Type 2 DM - . Patient self-discontinued glipzidie 2.5mg as it was causing tachycardia, and now diet-controlled. A1c 5.7 Anxiety/anxiety/ADHD - patient follows with N in [place]. Psych provider is Dr. Amaral, who prescribes Cymbalta, Trazodone, Adderall and buproprion. Sees therapist every 2 weeks. Low back pain--evaluated by Dr. Todd, recommended physical therapy, patient is not interested in any injections. Vertigo--requesting meclizine prescription, GERD--famotidine 20 mg daily, and pantoprazole 40 mg daily We will follow-up in 4 months or sooner as needed Carmel De Souza MD on 11/28/2024 at 3:04 PM EDT documented in this encounter Plan of Treatment Upcoming Encounters Date Type Department Care Team (Late st Contact Info) Description 12/07/2024 10:00 AM EDT Treatment [facility] [address] [phone] Judah Dioni M, CALL CENTER MANAGER 2024 9:00 AM EDT Treatment [facility] [address] [phone] Isaac Medina, PT 12/14/2024 9:30 AM EDT Treatment [facility] [address] [phone] Isaac Medina, PT 02/13/2025 9:30 AM EST Office Visit Internal Medicine [facility] 175 [facility] 200 [place] [phone] Luiz Barron NP 175 [facility] 200 [place] [address] 02/27/2025 9:30 AM EST Office Visit General Surgery - [place] 175 [facility] 110 [place] [phone] Roberto Ness MD 230 [place] [phone] 05/04/2025 9:45 AM EST Office Visit Internal Medicine - [place] 175 [facility] 200 [place] [address] Carmel De Souza MD 175 [facility] 200 [place] [phone] 07/18/2025 9:15 AM EDT Office Visit Bariatric Surgery - [place] 175 [facility] 120 [place] [phone] Julio Gaines MD 230 [place] [phone] documented as of this encounter Goals Goal Patient Goal Type Associated Problems Recent Progress Patient-Stated? Author PT LTGs General No Isaac Medina PT Note: Pt will complete morning ADLs without cervical pain Pt will carry 10 lb box x50 ft without pain to simulate laundry carry Pt will be independent with HEP documented as of this encounter Visit Diagnoses Diagnosis Primary hypertension- Primary Unspecified essential hypertension Type 2 diabetes mellitus without complication, without long-term current use of insulin ([facility] V24, [facility] V28) Depression, unspecified depression type Hypercholesterolemia Pure hypercholesterolemia Attention deficit hyperactivity disorder (ADHD), unspecified ADHD type documented in this encounter Care Teams Manager Registration Relationship Specialty Start Date End Date Carmel De Souza MD [address] [place] [phone] PCP - General 02/19/22 documented as of this encounter
--- OUTSIDE RECORDS SUMMARY | 2024-11-30 08:00 | XMS_ITS | Encounter Summary ---
Author Organization [facility]a [facility] Address [address] [place] [address] Care Team Providers Care Contract Designer Name Role Phone Carmel De Souza MD Primary Care Provider [phone] Reason for Visit * Consultation (Routine) - Authorized Specialty Diagnoses / Procedures Referred By Mera chandler Referred To Contact Physical Therapy Diagnoses Neck pain Carmel De Souza MD 175 [facility] 200 [place] [address] Phone: tel: fax: [facility] [address] [phone] Phone: tel: fax: Referral ID Status Reason Start Date Expiration Date Visits Requested Visits Authorized [id number] Authorized Specialty Services Required 10/12/2024 10/12/2025 21 21 Encounter Details Date Type Department Care Team (Late st Contact Info) Description 11/30/2024 8:00 AM EDT Treatment [facility] [address] [phone] Dioni So, TRANSIT PLANNER Neck pain (Primary Dx) Social History Tobacco [...] documented in this encounter Progress Notes * Dioni So PTA - 11/30/2024 8:00 AM EDT [facility] - Outpatient PHYSICAL THERAPY DAILY TREATMENT NOTE - OP Date: 11/30/2024 Visit Number: 4 Patient Name: Tia Ivy : 1965 Age: 58 y.o. Gender: female Diagnosis: ICD-10-CM ICD-9-CM 1. Neck pain M54.2 723.1 Date of Onset/Surgery: 11/11/2024 Referring Provider: Carmel De Souza MD Insurance: Payor: [facility] [employer] PLAN / Plan: [facility] MEDICAID / Product Type: *No Product type* / Patient Identified by: Dioni So PTA Language: Speaks and understands Uzbek as preferred language with no corporate administrative assistant required Medications: Current Outpatient Medications on File [...] risk: No SUBJECTIVE Subjective Report: Pt reports feeling much better Chart Reviewed: Yes Pain: no current sxs TREATMENT INTERVENTION: UBE at level 4 3/3 bluet-band B shoulder extension/rows x20 5 sec holds ea Blue t-band face pulls x20 5 sec holds Blue t-band B shoulder horizontal abduction x 20 Open books x20 blue Seated upper trap stretch with 30 sec hold x3 B Seated levator stretch with 30 sec hold x3 B ASSESSMENT/Response to Treatment Good No increase in pain after completing above therex Patient Education: Education provided: HEP Education Provided To: Patient utilizing Explanation and Demonstration mode(s) of education Response to Education: Applied Knowledge and Verbal Understanding PLAN POC Development/Review: No Change in the Plan of Care; Participants: Patient Interventions Time Entry: Modalities: Therapeutic procedures: Therapeutic Exercise Time Entry: 30 Total Treatment Time: 30 Documentation completed by Dioni So PTA documented in this encounter Plan of Treatment Upcoming Encounters Date Type Department Care Team (Late st Contact Info) Description 12/07/2024 10:00 AM EDT Treatment [address] [phone] Dioni So PTA 2024 9:00 AM EDT Treatment [address] [phone] Isaac Medina, PT 12/14/2024 9:30 AM EDT Treatment [address] [phone] Isaac Medina, PT 02/13/2025 9:30 AM EST Office Visit Internal Medicine - [place] 175 [facility] 200 [place] [phone] Luiz Barron NP 175 [facility] 200 [place] [address] 02/27/2025 9:30 AM EST Office Visit General Surgery - [place] 175 [facility] 110 [place] [phone] Roberto Ness MD 230 [place] [phone] 05/04/2025 9:45 AM EST Office Visit Internal Medicine - [place] 175 [facility] 200 [place] [phone] Carmel De Souza MD [address] [phone] 07/18/2025 9:15 AM EDT Office Visit Bariatric Surgery - [place] 175 [facility] 120 [place] [phone] Julio Gaines MD 230 [place] [phone] documented as of this encounter Goals Goal [...] Cervicalgia documented in this encounter Care Teams Contract Designer Relationship Specialty Start Date End Date Carmel De Souza MD [address] [phone] PCP - General 02/19/22 documented as of this encounter
--- NOTE | 2024-12-02 15:19 | MHC.OFFVIS ---
Vital Signs 12/02/24 15:23 Height 5 ft 7 in Weight 202 lb 9.677 oz BMI 31.7 BP 140/90 H Blood Pressure Location Lt brachial Position Sitting Pulse 68 Pulse Source Pulse Oximeter Pulse Oximetry (%) 97 Oxygen Delivery Method Room Air Intake Visit Reasons: US Guided Inj.Carpal Tunnel Lt Intake Note: Patient presents for US Guided Injection Carpal Tunnel LT follow up. Educational Sign Language Interpreter Required: Yes Educational Sign Language Interpreter Language: Piano Teacher Services: Educational Sign Language Interpreter Present Educational Sign Language Interpreter Name: Woody [id number] Information Interpreted: non-clinical & clinical Allergies gabapentin Allergy (Intermediate, Verified 12/02/24 15:23) Swelling celecoxib (From Celebrex) Adverse Reaction (Mild, Verified 12/02/24 15:23) Swelling Medication List - Last Reconciled 12/06/24 by Nohemi Ann MD amlodipine 5 mg PO DAILY atorvastatin 40 mg PO DAILY blood sugar diagnostic (FreeStyle Lite Strips) As directed cetirizine (All Day Allergy (cetirizine)) 10 mg PO DAILY PRN cholecalciferol (vitamin D3) 1,250 mcg PO QWEEK 12 weeks cyclobenzaprine TAKT 1-2 TABLETS BY MOUTH AT BEDTIME NEEDED FOR A MUSCLE SPASM diclofenac sodium 1% 2 grams topical BID duloxetine 30 mg PO DAILY duloxetine 60 mg PO DAILY famotidine 20 mg PO BID fluticasone propionate 50 mcg/actuation (Allergy Relief (fluticasone)) 1 spray intranasal DAILY hydrochlorothiazide 25 mg PO DAILY hydroxyzine pamoate 25 mg PO BID PRN lancets (FreeStyle Lancets) As directed magnesium oxide 400 mg PO BEDTIME 30 days meclizine 12.5 mg PO BID pantoprazole 40 mg PO DAILY pregabalin 75 mg PO BEDTIME 90 days riboflavin (vitamin B2) 400 mg PO DAILY 30 days sumatriptan succinate 50 - 100 mg orally at onset of headache, may repeat in 2 hrs PRN; max 2 tabs per day or 4 tabs/week (may take with Tylenol) 30 days topiramate 25 mg PO BID trazodone 200 mg PO BEDTIME HPI Comments Details: Patient is a 58 y.o. female with HTN, DM, HLD who is here for follow up of fibromyalgia and polyarticular OA Interval History: Last seen 11/03/24 with me - On duloxetine 90mg and Cylcobenzaprine - Hand numbness - Recommended using splint, ordered EMG - Added pregabalin Today - On duloxetine 90mg and Cylcobenzaprine, pregabalin 75mg nightly - Splinting did not help - Pregabalin helps with her overall pain - EMG no evidence of carpal tunnel - Here for US eval and procedure Rheumatologic History: Fibromyalgia - Previously tried gabapentin: states that she gets swelling from this - Celebrex: stopped because it cause swelling also Current Rheumatology Medication(s): Duloxetine 90mg daily Cyclobenzaprine 10mg daily Pregabalin 75mg nightly PFSH Medical History Bilateral hand numbness Lump of scalp Frequent headaches Gastritis Vertigo Vitamin D deficiency Hypercholesteremia DDD (degenerative disc disease), cervical Obesity Spondylosis Esophageal dysmotility Anxiety ADHD Migraine Diabetes Fibromyalgia HTN (hypertension) Surgical History H/O bariatric surgery Family History Mother Arthritis Father Arthritis Diabetes Social History Alcohol intake: former Patient Tobacco Use Status: Former Tobacco user Review of Systems Const All systems reviewed & are unremarkable except as noted in HPI and below Physical Exam Exam Exam: Vital signs reviewed Physical Examination CONSTITUITIONAL Patient alert and cooperative. Well appearing and in no apparent painful distress MSK Wrists Right Wrist: Full ROM to flexion and extension. No swelling or TTP Left Wrist: Full ROM to flexion and extension. No swelling or TTP Vital Signs: Last Vital Signs Pulse 68 12/02/24 15:23 BP 140/90 H 12/02/24 15:23 Pulse Ox 97 12/02/24 15:23 Oxygen Delivery Method Room Air 12/02/24 15:23 BMI result Body Mass Index 31.7 Office Procedures AMB Joint Injection/Aspiration Joint Injection/Aspiration Details: Date: 12/02/2024 Study Type: Limited Ultrasound with Guidance of needle placement Indication: Numbness in left hand Study Site: Left Wrist Equipment: Linkage Findings: Orthogonal views of the dorsal aspect of the left wrist were obtained in grayscale and Doppler. Procedure: Dorsal trans view of the left wrist showed the median nerve, with increased diameter by visual estimation (machine unable to give numerical diameters) Procedure was explained to the patient and informed consent was obtained for ultrasound-guided glucocorticoid injection of the left wrist Risks associated with the procedure were discussed with the patient including but not limited to bleeding, infection, drug reactions and reactions to the topical anesthetic. Patient made aware of signs to look out for infectious complications. The left wrist was sterilely prepped with chlorhexidine and anesthetized with lidocaine spray. A 22 gauge 1.5 in needle was advanced into the left wrist under direct ultrasound visualization using in plane technique. 40 mg of Kenalog with 1cc 1% Lidocaine was injected. The procedure was well tolerated. Impressions: Elevated median nerve diameter by visual estimate consistent with carpal tunnel syndrome Successful injection of the left wrist using ultrasound guidance Primary Site: other (left wrist) Prep: site was prepped using aseptic technique and ethochloride spray was applied Injected: 40 mg of, Kenalog, with 1 mL of and 1% plain lidocaine Procedure: The patient tolerated the procedure well Coding Details: 29327 + [id number] Procedure code (CPT) selection complete ( + 17301) Office Meds lidocaine (PF) 10 mg/mL (1 %) injection solution Performing Provider: Nohemi Ann MD Performing Location[place] [facility] [place] [facility] Administered by: Nohemi Ann MD on 12/06/24 16:42 Dose Route Admin Location Dispensed Lot Number Expiration Date [facility] [employer] 1 mL perineural injection left median nerve 2 mL [id number] 05/14/26 70096-567-26 [employer] Total Dispensed Waste 2 mL 50 % Kenalog 40 mg/mL suspension for injection Performing Provider: Nohemi Ann MD Performing Location: [facility] [place] [facility] Administered by: Nohemi Ann MD on 12/06/24 16:42 Dose Route Admin Location Dispensed Lot Number Expiration Date [facility] [employer] 40 mg perineural injection left median nerve 1 mL [id number] 07/14/26 [address]-9 [employer] Total Dispensed Waste 1 mL 0 % Results Reviewed Results Reviewed: EMG 03/2024 FINDINGS: All motor and sensory nerves tested showed normal latencies, amplitudes and conduction velocities. Concentric needle EMG was performed in selected muscles of the bilateral upper extremities. Study did not reveal signs of electric abnormalities as shown in the table above. IMPRESSION: 1. This is a normal study. 2. There is no electrodiagnostic evidence for median neuropathy, ulnar neuropathy, brachial plexopathy, or cervical radiculopathy. Assessment & Plan Assessment & Plan (1) Carpal tunnel syndrome of left wrist: Code(s): G56.02 - Carpal tunnel syndrome, left upper limb Plan: #Left wrist carpal tunnel Patient is a 58-year-old female with fibromyalgia here today for ultrasound evaluation of left wrist carpal tunnel. Evidence of increased median nerve diameter by visual estimate (ultrasound machine not able to calculate actual estimate). Status post steroid injection around median nerve Plan - S/p steroid injection around median nerve Plan I spent 20 minutes reviewing the record, taking a history, examining the patient, discussing the treatment plan, and documenting in the medical record Orders: Orders AMB Joint Injection/Aspiration 12/02/24 G56.02 - Carpal tunnel syndrome, left upper limb Coding Level of Care Code Est Pt Level 3 (57521) Diagnoses Carpal tunnel syndrome of left wrist G56.02
--- OUTSIDE RECORDS SUMMARY | 2024-12-02 15:19 | XMS_ITS | Clinical Summary ---
Author Organization [facility] Address [address] [place] [address] Phone Care Team Providers Care Door Frame Assembler Machine Name Role Phone Carmel De Souza MD Primary Care Provider [phone] Allergies Active Allergy Reactions Criticality Noted Date [...] complication, without long-term current use of insulin ([facility] V24, [facility] V28) 12/22/2022 COVID 08/31/2021 Binge eating disorder 08/06/2021 Overview (02/03/2024): Dr. 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 V24, [facility] V28) 09/19/2020 Attention deficit hyperactivity disorder (ADHD) 09/14/2020 Primary osteoarthritis of both knees 05/10/2018 DDD (degenerative disc disease), cervical 2017 Fibromyalgia 03/26/2017 Overview (02/03/2024): Gabapentin stopped due to leg swelling DDD (degenerative disc disease), lumbar 02/18/20 Hypercholesterolemia 12/04/2015 Depression 12/04/2015 Overview (02/03/2024): F/u psych Nora Impaired fasting glucose 12/04/2015 HTN (hypertension) 12/04/2015 Vitamin D deficiency 12/04/2015 Migraine 12/04/2015 Vertigo 12/04/2015 Gastritis 12/04/2015 Overview (02/03/2024): Mild / upper endoscopy 2015 Cholelithiasis 12/04/2015 Class 2 severe obesity due t o excess calories with serious comorbidity and body mass index (BMI) of 38.0 to 38.9 in adult Encounters Date Type Department Care Team Description 12/02/2024 Lab Requisition [facility] Main Lab [address] [facility] [place] [address] Donald Pardo PA Pyuria 11/30/2024 8:00 AM EDT Treatment [facility] [address] [address] Dioni So, CARTON LINER Neck pain (Primary Dx) 11/28/2024 2:00 PM EDT Office Visit Internal Medicine [address] [phone] Carmel De Souza MD Primary hypertension (Primary Dx); Type 2 diabetes mellitus without complication, without long-term current use of insulin ([facility] V24, [facility] V28); Depression, unspecified depression type; Hypercholesterolemia; Attention deficit hyperactivity disorder (ADHD), unspecified ADHD type 11/28/2024 10:45 AM EDT Treatment [address] [address] Isaac Medina, PT Neck pain (Primary Dx) 11/23/2024 12:00 PM EDT Treatment [address] [address] Dioni So, CARTON LINER Neck pain (Primary Dx) 11/11/2024 8:30 AM EDT Evaluation [address] [address] Isaac Medina, PT Neck pain 10/24/2024 Telephone Gastroenterology [address] [address] Beth Madrigal NP 10/12/2024 9:00 AM EDT Office Visit Internal Medicine [address] [phone] Carmel De Souza MD Neck pain (Primary Dx); Class 2 severe obesity due to excess calories with serious comorbidity and body mass index (BMI) of 38.0 to 38.9 in adult ([facility] V24, [facility] V28); Type 2 diabetes mellitus without complication, without long-term current use of insulin ([facility] V24, [facility] V28); Absence epileptic syndrome, intractable, with status epilepticus ([facility] V24, [facility] V28) from Last 3 Months Immunizations Name Administration [...] GI ENDOSCOPY/EXAM UPPER GASTROINTESTINAL ENDOSCOPY 11/27/2016 PROCEDURE: UT UPPER GI ENDOSCOPY PERFORMED; COMMENT: normal ESOPHAGOGASTRODUODENOSCOPY 11/21/2020 PROCEDURE: UT EGD TRANSORAL BIOPSY SINGLE/MULTIPLE; COMMENT: bilious fluid [...] Uncontrolled type 2 diabetes mellitus with hyperglycemia ([facility] V24, [facility] V28) 09/19/2020 DX:Uncontrolled type 2 diabe charles mellitus with hyperglycemia (HCC) Fibromyalgia DX:Fibromyalgia Esophageal dysmotility DX:Esopha geal dysmotility Binge eating disorder 08/06/2021 DX:Binge e ating disorder; [facility] Attention deficit hyperactiv ity disorder (ADHD) 09/14/2020 DX:Attention deficit hyperac tivity disorder (ADHD) Class 2 severe obesity due t o excess calories with serious comorbidity and body mass index (BMI) of 39.0 to 39.9 in adult 05/11/2018 DX:Class 2 severe obesity du e to excess calories with serious comorbidity and body mass index (BMI) of 39.0 to 39.9 in adult (HCC) DDD (degenerative disc disea se), cervical 03/26/2017 [...] Pulse 78 11/28/2024 1:46 PM EDT Temperature 36.6 C (97.9 F) 10/12/2024 8:55 AM EDT Respiratory Rate 18 10/12/2024 8:55 AM EDT Oxygen Saturation 99% 11/28/2024 1:46 PM EDT Inhaled Oxygen Concentration - - Weight 90.7 kg (200 lb) 11/28/2024 1:46 PM EDT Height 170.2 cm (5' 7 ) 11/28/2024 1:46 PM EDT Body Mass Index 31.32 11/28/2024 1:46 PM EDT Plan of Treatment Upcoming Encounters Date Type Department Care Team (Late st Contact Info) Description 12/07/2024 10:00 AM EDT Treatment [address] [phone] Dioni So, CARTON LINER 2024 9:00 AM EDT Treatment [address] [phone] Isaac Medina, PT 12/14/2024 9:30 AM EDT Treatment [address] [phone] Isaac Medina, PT 02/13/2025 9:30 AM EST Office Visit Internal Medicine [facility] [address] [facility] [address] [place] [address] Luiz Barron NP 175 [facility] 200 [place] [address] 02/27/2025 9:30 AM EST Office Visit General Surgery [facility] [address] [facility] [address] [place] [phone] Roberto Ness MD [address] [place] [phone] 05/04/2025 9:45 AM EST Office Visit Internal Medicine [facility] [address] [facility] 200 [place] [phone] Carmel De Souza MD [address] [facility] [address] [place] [address] 07/18/2025 9:15 AM EDT Office Visit Bariatric Surgery - [place] [address] [facility] [address] [place] [address] Julio Gaines MD [facility] [place] [address] Health Maintenance Due Date Last Done Comments [...] 02/22/2022 Social Influencers of Health Screening 02/22/2022 Depression Screening 03/16/2024 Diabetes: Blood Sugar Control Test (HGBA1C) 05/05/2024 11/03/2023, 11/03/2023 Diabetes: Annual Urine Albumin-Creatinine Ratio (uACR) 11/02/2024 11/03/2023 COVID-19 Vaccine ( season) 2024 08/20/2020, 08/09/2020 Influenza Vaccine (#1) 2024 , 03/14/2020, 01/28/2019, Additional history exists Diabetes: Annual GFR (Glomerular Filtration Rate) 05/10/2025 05/10/2024, 02/04/2024, 11/03/2023, Additional history exists Hypertension/CHF/CAD Annual BMP Blood Test 05/10/2025 05/10/2024, 02/04/2024, 11/03/2023, Additional history exists DTaP,Tdap,and Td Vaccines (2 - Td or Tdap) 02/11/2027 02/11/2017 Cervical Cancer Screening: HPV 08/18/2028 08/19/2023 Cholesterol Screening (Lipid Panel) 11/02/2028 11/03/2023, 11/03/2023 RSV Immunization Adult Patients (1 - 1-dose 75+ series) 2041 Colorectal Cancer Screening: Colonoscopy Discontinued 07/28/2022 Hepatitis [...] on patient's age to complete this topic Goals Goal Patient Goal Type Associated Problems Recent Progress Patient-Stated? Author PT LTGs General No Isaac Medina, PT Note: Pt will complete morning ADLs without cervical pain Pt will carry 10 lb box x50 ft without pain to simulate laundry carry Pt will be independent with HEP Procedures Procedure Name Priority Date/Time Associated Diagnosis Comments FOLATE Routine 11/30/2024 8:36 AM EDT Postoperative intestinal malabsorption IRON AND TIBC Routine 11/30/2024 8:36 AM EDT Postoperative intestinal malabsorption VITAMIN B1 Routine 11/30/2024 8:36 AM EDT Postoperative intestinal malabsorption VITAMIN B12 Routine 11/30/2024 8:36 AM EDT Postoperative intestinal malabsorption VITAMIN D 25 HYDROXY Routine 11/30/2024 8:36 AM EDT Postoperative intestinal malabsorption ZINC Routine 11/30/2024 8:36 AM EDT Postoperative intestinal malabsorption COMPREHENSIVE METABOLIC PANEL STAT 05/10/2024 7:51 PM [...] Recently Relevant to Health Maintenance Results * Iron and TIBC (11/30/2024 8:36 AM EDT) Iron 82 40 - 150 mcg/dL LAB CHEMISTRY METHOD 11/30/2024 10:51 AM EDT [facility] TIBC 339 250 - 450 mcg/dL LAB CHEMISTRY METHOD 11/30/2024 10:51 AM EDT [facility] Iron Saturation 24 15 - 50 % LAB CHEMISTRY METHOD 11/30/2024 10:51 AM EDT [facility] Blood Venous blood specimen / Unknown Venipuncture / Unknown 11/30/2024 8:36 AM EDT 11/30/2024 8:36 AM EDT us Julio Gaines MD LAB BLOOD ORDERABLES Final R esult [facility] [address] [place] [address], [place] [phone] * Zinc (11/30/2024 8:36 AM EDT) Zinc 69 60 - 130 ug/dL 12/02/2024 11:07 AM EDT [facility] Comment: Elevated results may be due to sample collected in a non-certified trace element-free tube. This test was developed and the performance characteristics determined by [facility]. It has not been cleared or approved by the FDA. The laboratory is regulated under CLIA as qualified to perform high-complexity testing. This test is used for patient testing purposes. It should not be regarded as investigational or for research. Test performed at [facility], [address], [place] [address] Kelly Saldivar MD, PhD - [employer] Plant Superintendent Blood Venous blood specimen / Unknown Venipuncture / Unknown 11/30/2024 8:36 AM EDT 11/30/2024 8:36 AM EDT Julio Gaines MD LAB BLOOD ORDERABLES Final R esult [facility] [address] [place] [address] * (ABNORMAL) Vitamin D 25 hydroxy (11/30/2024 8:36 AM EDT) Pathologist [facility] Vit D, 25-Hydroxy 29.1(L) 30.0 - 80.0 ng/mL LAB CHEMISTRY METHOD 11/30/2024 11:16 AM EDT [facility] Blood Venous blood specimen / Unknown Venipuncture / Unknown 11/30/2024 8:36 AM EDT 11/30/2024 8:36 AM EDT Julio Gaines MD LAB BLOOD ORDERABLES Final R esult [facility] [address] [place] [address], [place] [phone] * Vitamin B1 (11/30/2024 8:36 AM EDT) [facility] Vitamin B1 Whole Blood 54 38 - 122 ug/L 12/02/2024 12:27 PM EDT [facility] Comment: This test was developed and the performance characteristics determined by [facility]. It has not been cleared or approved by the FDA. The laboratory is regulated under CLIA as qualified to perform high-complexity testing. This test is used for patient testing purposes. It should not be regarded as investigational or for research. Test performed at [facility], [address] , [place] [address] Kelly Saldivar MD, PhD - Biodiesel Plant Superintendent Blood Venous blood specimen / Unknown Venipuncture / Unknown 11/30/2024 8:36 AM EDT 11/30/2024 8:36 AM EDT Julio Gaines MD LAB BLOOD ORDERABLES Final R esult [facility] [address] [place] [address] * (ABNORMAL) Folate (11/30/2024 8:36 AM EDT) [facility] Folate >20.0(H) 2.8 - 17.0 ng/ml LAB CHEMISTRY METHOD 11/30/2024 10:51 AM EDT [facility] Blood Venous blood specimen / Unknown Venipuncture / Unknown 11/30/2024 8:36 AM EDT 11/30/2024 8:36 AM EDT us Julio Gaiens MD LAB BLOOD ORDERABLES Final R esult [facility] [address] [place] [address], * Vitamin B12 (11/30/2024 8:36 AM EDT) [facility] Vitamin B-12 627 250 - 900 pcg/mL LAB CHEMISTRY METHOD 11/30/2024 10:51 AM EDT [facility] Blood Venous blood specimen / Unknown Venipuncture / Unknown 11/30/2024 8:36 AM EDT 11/30/2024 8:36 AM EDT us Julio Gaines MD LAB BLOOD ORDERABLES Final R esult [facility] [address] [place] [address], * Comprehensive metabolic panel (05/10/2024 7:51 PM EST) Sodium 138 133 - 145 mmol/L LAB CHEMISTRY METHOD 05/10/2024 8:38 PM [facility] Potassium 4.2 3.5 - 5.5 mmol/L LAB CHEMISTRY METHOD 05/10/2024 8:38 PM [facility] Chloride 109 96 - 110 mmol/L LAB CHEMISTRY METHOD 05/10/2024 8:38 PM [facility] CO2 26 21 - 32 mmol/L LAB CHEMISTRY METHOD 05/10/2024 8:38 PM [facility] Anion Gap 3 3 - 11 LAB CHEMISTRY METHOD 05/10/2024 8:38 PM [facility] Glucose 73 70 - 100 mg/dL LAB CHEMISTRY METHOD 05/10/2024 8:38 PM [facility] BUN 14 5 - 25 mg/dL LAB CHEMISTRY METHOD 05/10/2024 8:38 PM [facility] Creatinine 0.86 0.50 - 1.10 mg/dL LAB CHEMISTRY METHOD 05/10/2024 8:38 PM [facility] eGFR 79 >=60 mL/min/1. 73m2 LAB CHEMISTRY METHOD 05/10/2024 8:38 PM [facility] Comment:Calculation based on the Chronic Kidney Disease Epidemiology Collaboration (CKD-EPI) equation refit without adjustment for race. BUN/Creatinine Ratio 16.3 LAB CHEMISTRY METHOD 05/10/2024 8:38 PM [facility] Calcium 9.4 8.5 - 10.5 mg/dL LAB CHEMISTRY METHOD 05/10/2024 8:38 PM [facility] AST (SGOT) 20 10 - 42 unit/L LAB CHEMISTRY METHOD 05/10/2024 8:38 PM [facility] ALT (SGPT) 23 10 - 60 unit/L LAB CHEMISTRY METHOD 05/10/2024 8:38 PM [facility] Alkaline Phosphatase 89 42 - 121 unit/L LAB CHEMISTRY METHOD 05/10/2024 8:38 PM [facility] Total Protein 8.0 6.0 - 8.0 g/dL LAB CHEMISTRY METHOD 05/10/2024 8:38 PM [facility] Albumin 3.9 3.2 - 5.0 g/dL LAB CHEMISTRY METHOD 05/10/2024 8:38 PM [facility] Total Bilirubin 0.4 0.0 - 1.4 mg/dL LAB CHEMISTRY METHOD 05/10/2024 8:38 PM [facility] Blood Venous blood specimen / Unknown Venipuncture / Unknown 05/10/2024 7:51 PM EST 05/10/2024 8:00 PM EST Malachi Martinze MD LAB BLOOD ORDERABLES Final Resu lt [facility] [address] [place] [address], * Urine Albumin Creatinine Ratio (11/03/2023) Urine Albumin Creatinine Ratio Abstracted Historical Provider HEALTH MAINTENANCE Final Result * Hepatitis C Screening (11/03/2023) Hepatitis C Screening Abstracted us Historical Provider MD HEALTH MAINTENANCE Final Result * Hemoglobin A1c (11/03/2023) Pathologist [facility] Hemoglobin A1C 5.7 <=6.5 % Blood Venous blood specimen / Unknown [facility] LAB BLOOD ORDERABLES Carrie l Result * (ABNORMAL) Lipid panel (11/03/2023) [facility] LDL/HDL Ratio 3 0 - 4 Triglycerides 64 0 - 150 mg/dL Cholesterol 236(A) 0 - 200 mg/dL HDL 81 >=40 mg/dL LDL Cholesterol 143(A) 0 - 100 mg/dL Blood Venous blood specimen / Unknown [facility] LAB BLOOD ORDERABLES Carrie l Result * Cervical Cancer Screening: HPV (08/19/2023) Pathologist [facility] Cervical Cancer Screening: HPV Negative, Abstracted [facility] Final Result * Colonoscopy (07/28/2022) Pathologist [facility] Colonoscopy No Interpretation , Abstracted Anatomical Region Laterality Modality Other [facility] Final Result * SCR MAMMO [...] Most Recently Relevant to Health Maintenance Insurance [facility] [employer] Care Teams Door Frame Assembler Machine Relationship Specialty Start Date End Date Carmel De Souza MD [address] [facility] [address] [place] [address] PCP - General 02/19/22
--- OUTSIDE RECORDS SUMMARY | 2024-12-02 15:19 | XMS_ITS | Encounter Summary ---
Author Organization [facility] Address [address] [place] [address] Care Team Providers Care Oxygen Therapy Teacher Name Role Phone Carmel De Souza MD Primary Care Provider [phone] Encounter Details Date Type Department Care Team (Late st Contact Info) Description 12/02/[address] [facility] - Main Lab 299 [facility] [place] [phone] Donald Pardo PA [address] [facility] [address] [place] [address] Pyuria Social History Tobacco Use Types Packs/Day Years [...] Yakov Mcwilliams RN documented in this encounter Plan of Treatment Upcoming Encounters Date Type Department Care Team (Late st Contact Info) Description 12/07/2024 10:00 AM EDT Treatment [facility] [address] [address] Dioni So, SURVEYING OR SPATIAL SCIENCE TECHNICIAN 2024 9:00 AM EDT Treatment [address] [phone] Isaac Medina, PT 12/14/2024 9:30 AM EDT Treatment [address] [phone] Isaac Medina, PT 02/13/2025 9:30 AM EST Office Visit Internal Medicine [facility] 175 [facility] 200 [place] [phone] Luiz Barron NP [address] [address] 02/27/2025 9:30 AM EST Office Visit General Surgery [facility] 175 [facility] 110 [place] [phone] Roberto Ness MD [address] [place] [phone] 05/04/2025 9:45 AM EST Office Visit Internal Medicine - [place] 175 [facility] 200 [place] [phone] Carmel De Souza MD 175 [facility] 200 [place] [address] 07/18/2025 9:15 AM EDT Office Visit Bariatric Surgery - [place] 175 [facility] 120 [place] [address] Julio Gaines MD [address] [place] [phone] Pending Results Name Type Priority Associated Diagnoses Date /Time Culture urine Microbiology Routine Pyuria 12/02/2024 12:00 AM EDT documented as of this encounter Goals Goal Patient Goal Type Associated Problems Recent Progress Patient-Stated? Author PT LTGs General No Isaac Medina, PT Note: Pt will complete morning ADLs without cervical pain Pt will carry 10 lb box x50 ft without pain to simulate laundry carry Pt will be independent with HEP documented as of this encounter Visit Diagnoses Diagnosis Pyuria Other nonspecific finding on examination of urine documented in this encounter Care Teams Oxygen Therapy Teacher Relationship Specialty Start Date End Date Carmel De Souza MD 175 [facility] 200 [place] [phone] PCP - General 02/19/22 documented as of this encounter
[2024-12-02 15:23] VITALS: BP 140/90; PULSE 68; O2SAT 97; BMI 31.7
== END 2024-12-02 16:01 | disposition home or self-care (01) ==
LOC: HO.RHES 15:17
PROVIDERS: PCP Internal Medicine; Visit Provider Student in an Organized Health Care Education/Training Program
DX: G56.02 Carpal tunnel syndrome, left upper limb (principal)
CPT/HCPCS: 99213

== ENCOUNTER → 2024-12-02 15:17 | Outpatient (BNVA) | payer OTHER, SELFPAY | PROVIDERS: PCP Internal Medicine; Visit Provider Student in an Organized Health Care Education/Training Program | DX: G56.02 Carpal tunnel syndrome, left upper limb (principal); M79.7 Fibromyalgia; M15.9 Polyosteoarthritis, unspecified | CPT/HCPCS: 99212; J2003; J3301 ==